=== PATIENT | female | born 1930 | race Caucasian/White ===

== ENCOUNTER 2017-03-22 07:26 | Inpatient (IN) | payer BC ==
[~2017-03-22] VITALS: Ht 149.9 cm; Wt 64.7 kg
[2017-03-22] VITALS (64 sets, daily range): BP systolic 85–144; BP diastolic 36–66; PULSE 76–117; RESP 11–24; Ht 149.9 cm; Wt 64.7 kg
[~2017-03-22 07:26] MED LIST: HETASTARCH 6% NACL 500 ML BAG ONE
--- NOTE | 2017-03-22 07:55 | HP ---
Date/Time of Note Date/Time of Note DATE: 03/22/17 TIME: 07:55 Assessment/Plan VTE Prophylaxis VTE Prophylaxis Intervention: SCD's HPI/ROS Admit Date/Time Admit Date/Time Mar 22, 2017 at 07:26 ROS Satish Winston M.D. 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 The mass is complex and solid per Ct scan, 8 cm bilateral adnexal with lymphadenopathy. Elevated Ca 125 of 269 . She also has prolonged PMB. Medical history/ROS: Thyroid d/o, Arthritis. G 2 P 2 Ab 0 Surgical history: cholecystectomy,cataract surgery . Date of last mammogram 2012 ; Last Pap Smear: 12/2016 , Last Dexa 2012 Medications: 02/03/17 Calcium 500 500 mg calcium (1,250 mg) tablet 1 tablet by mouth DAILY 02/03/17 furosemide 20 mg tablet 1 tablet by mouth DAILY 02/03/17 levothyroxine 137 mcg tablet 1 tablet by mouth DAILY 02/03/17 PreserVision Lutein 226 mg-200 unit-5 mg-0.8 mg capsule 2 capsule by mouth DAILY 02/03/17 simvastatin 10 mg tablet 1 tablet by mouth DAILY Allergies: 02/02/17 Codeine Family Hx: non-contributary Social HX: non-contributary ROS: as above Physical Examination General: Alert. HEENT: Pupils are equal, round, reactive to light and accommodation. Neck: Supple with no masses of lymphadenopathy. Breast: Deferred due to recent examination and responsibility of primary care physician. Chest: Clear to auscultation Heart: Normal rhythm with no murmur. Abdomen: Non tender, no ascites nor organomeglay. Pelvic exam: Cx, NT with no mass but uterus enlgd and suggestion of masses and cul-de-sac nodularity noted Rectal: confirmatory with pelvic exam. Neurological: Grossly intact Assessment: Pelvic mass Plan: DANN/ BSO, possible UDx2 possible cytoreduction, possible bowel resection. All risks and benefits of this procedure have been discussed in detail with the patient, as well as alternative treatment strategies and their implications. The patient is aware that there is some possibility of a blood transfusion and its associated risks and benefits. She wishes to proceed and gives her informed consent. Satish Winston M.D. Exam/Review of Systems Medications Medications Current Medications Potassium Chloride/Dextrose/ Sod Cl 1,000 ml @ 100 mls/hr Q10H IV ; Start 03/22 at 08:00; Stop 03/22/17 at 17:59 Metronidazole 100 ml @ 100 mls/hr PREOP IVPB ; Start 03/22/17 at 08:00; Stop at 16:00 Cefazolin Sodium/ Dextrose (Ancef 2 Gm/50 ml (Pmx)) 50 ml @ 100 mls/hr PREOP IVPB ; Start 03/22/17 at 08:00; Stop 03/22/17 at 16:00 SATISH WINSTON MD Mar 22, 2017 07:55
--- NOTE | 2017-03-22 07:56 | HPN ---
Date/Time of Note Date/Time of Note DATE: 03/22/17 TIME: 07:56 Interval H&P Admission Note Pt. seen H&P reviewed: No system changes DEVORAH WINSTON MD Mar 22, 2017 07:56
[2017-03-22] MEDS ORDERED: D5-NS + KCL 20 MEQ 1,000 ML IV SCH (08:00)
[2017-03-22] MEDS ORDERED: Metronidazole 500 MG in NS 100 ML IVPB SCH (08:00)
[2017-03-22] MEDS ORDERED: CEFAZOLIN 2 GM/50 ML (PMX) 50 ML IVPB SCH (08:00)
[2017-03-22] MEDS ORDERED: FURO-110 PO (08:13)
[2017-03-22] MEDS ORDERED: LEVO137T26 PO (08:13)
[2017-03-22] MEDS ORDERED: SIMV10TA PO (08:13)
[2017-03-22] MEDS ORDERED: VIT1CAPS42 PO (08:14)
[2017-03-22] MEDS ORDERED: CHOL100062 PO (08:14)
[2017-03-22] MEDS ORDERED: CALC600T11 PO (08:15)
[2017-03-22] MEDS ORDERED: VASOPRESSIN 20 UNITS INJ ONE (08:21)
[2017-03-22] MEDS ORDERED: METHYLENE BLUE 1% 10 ML INJ ONE (08:31)
[2017-03-22] MEDS ORDERED: THROMBIN 5000 UNIT VIAL ONE (09:22)
[2017-03-22] MEDS ORDERED: ROCURONIUM 50 MG INJ ONE (09:31)
[2017-03-22] MEDS ORDERED: PROPOFOL 100 ML ONE (09:31)
[2017-03-22] MEDS ORDERED: PHENYLephrine (100 MCG/ML) 5ML SYG ONE ×2 (10:33→12:30)
[2017-03-22] MEDS ORDERED: ONDANSETRON 4 MG INJ ONE (11:51)
[2017-03-22] MEDS ORDERED: CEFAZOLIN 1 GM INJ ONE ×2 (11:51→13:02)
[2017-03-22] MEDS ORDERED: DEXAMETHASONE 4 MG/ML 1 ML INJ ONE (11:51)
[2017-03-22] MEDS ORDERED: METOCLOPRAMIDE 10 MG INJ ONE (11:51)
[2017-03-22] MEDS ORDERED: metroNIDAZOLE 500 MG/NS (PMX) 100 ML IVPB ONE (11:51)
[2017-03-22] MEDS ORDERED: ACETAMINOPHEN 1000MG/100ML IV 100 ML ONE (11:51)
[2017-03-22] MEDS ORDERED: FAMOTIDINE 20 MG INJ ONE (11:51)
[2017-03-22] MEDS ORDERED: MEPERIDINE 25 MG INJ IV PRN (12:00)
[2017-03-22] MEDS ORDERED: hydrALAzine 20 MG INJ IV PRN (12:00)
[2017-03-22] MEDS ORDERED: ONDANSETRON 4 MG INJ IV PRN ×2 (12:00→14:00)
[2017-03-22] MEDS ORDERED: EPHEDrine SULFATE 50 MG/5 ML SYG IV PRN (12:00)
[2017-03-22] MEDS ORDERED: HYDROmorphONE (0.2 MG/ML) 10ML SYG IV PRN ×2 (12:00)
[2017-03-22] MEDS ORDERED: ALBUMIN HUMAN 5% 250 ML IV PRN (12:00)
[2017-03-22] MEDS ORDERED: LABETALOL HCL 20MG INJ IV PRN (12:00)
[2017-03-22] MEDS ORDERED: FENTAnyl 50 MCG/ML VIAL IV PRN ×2 (12:00)
[2017-03-22] MEDS ORDERED: DIPHENHYDRAMINE 50 MG INJ IV PRN (12:00)
[2017-03-22] MEDS ORDERED: morphine (1 MG/ML) 10ML SYRINGE IV PRN ×3 (12:00)
[2017-03-22 12:29] LABS: AADO2 Arterial 284.8 mmHg (7.0-24.0); Allen Test ACCEPTAB; Arterial Base Excess -3.6 mmol/L (-3.0-3); Arterial COHb 0.3 % (0.0-3.0); Arterial Fraction of Oxyhgb 98.5 % (93.0-99.0); Arterial HCO3 21.8 mmol/L (22.0-26.0); Arterial MetHb 0.4 % (0.0-1.5); Arterial Total Hemglobin 9.7 g/dl (12.0-18.0); MODE SURGERY
[2017-03-22] MEDS ORDERED: NEOSTIGMINE 3 MG/3 ML SYRINGE ONE (13:15)
[2017-03-22] MEDS ORDERED: GLYCOPYRROLATE 0.4 MG INJ ONE (13:15)
[2017-03-22] MEDS: HYDROmorphONE (0.2 MG/ML) 10ML SYG IV PRN ×2 (13:55→15:33)
[2017-03-22] MEDS ORDERED: metroNIDAZOLE 500 MG/NS (PMX) 100 ML IVPB SCH (14:00)
[2017-03-22] MEDS ORDERED: CEFAZOLIN 3 GM in SOD CHLORIDE 0.9% 100 ML IVPB SCH (14:00)
[2017-03-22 14:25] LABS: ADD SCAN DIFF NO
[2017-03-22 14:26] LABS: BASOPHILS % 0.2 % (0.0-2.0); EOSINOPHILS % 0.4 % (0.0-7.0); HEMATOCRIT 28.9 % (37.0-47.0); HEMOGLOBIN 9.2 g/dl (12.0-16.0); LYMPHOCYTES % 18.1 % (15.0-51.0); MEAN CORPUSCULAR HEMOGLOBIN 29.1 pg (29.0-33.0); MEAN CORPUSCULAR HGB CONC 31.8 g/dl (32.0-37.0); MEAN CORPUSCULAR VOLUME 91.5 fl (82.0-101.0); MEAN PLATELET VOLUME 9.1 fl (7.4-10.4); MONOCYTE # 0.2 10^3/ul (0.3-0.9); MONOCYTES % 3.8 % (0.0-11.0); NEUTROPHIL # 4.1 10^3/ul (1.6-7.5); NEUTROPHILS % 77.1 % (39.0-77.0); PLATELET COUNT 183 10^3/UL (140-415); RED BLOOD COUNT 3.16 10^6/ul (4.20-5.40); RED CELL DISTRIBUTION WIDTH 14.4 % (11.5-14.5); WHITE BLOOD COUNT 5.3 10^3/ul (4.8-10.8)
[2017-03-22 14:42] LABS: ALBUMIN 1.6 g/dl (3.3-4.9); ALBUMIN/GLOBULIN RATIO 0.61; BILIRUBIN,INDIRECT 0.4 mg/dl (0-1.1); BILIRUBIN,TOTAL 0.4 mg/dl (0.2-1.3); TOTAL PROTEIN 4.2 g/dl (6.1-8.1)
[2017-03-22 15:01] LABS: CALCIUM 6.9 mg/dl (8.4-10.2); CREATININE 0.84 mg/dl (0.44-1.00); POTASSIUM 3.7 mmol/L (3.5-5.1)
--- NOTE | 2017-03-22 15:05 | RADRPT ---
PROCEDURE: XR Chest. CLINICAL INDICATION: post op TECHNIQUE: Single frontal view of the chest was obtained. COMPARISON: None. FINDINGS: The tip of an enteric tube is noted in the stomach. A right internal jugular central venous catheter is noted with its tip in the mid SVC. The heart and mediastinum are within normal limits. The aortic arch is calcified. There is mild prominence of interstitial markings, likely due to chronic and / or senescent changes. There are small bilateral pleural effusions. There is decreased osseous mineralization. IMPRESSION: Small bilateral pleural effusions without definite focal infiltrates. Enteric tube in the stomach. Right IJ central venous line with its tip in the mid SVC. Aortic atherosclerosis. Decreased osseous mineralization. RPTAT: EE Physician Olivia Date Time Electronically viewed and signed by Chase Toney Physician on 03/22/2017 15:05 /
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
[2017-03-22] MEDS: D5-NS + KCL 20 MEQ 1,000 ML IV SCH ×2 (16:10→23:50)
[2017-03-22] MEDS: CEFAZOLIN 1 GM/50 ML (PMX) 50 ML IVPB SCH (20:02)
[2017-03-22] MEDS: metroNIDAZOLE 500 MG/NS (PMX) 100 ML IVPB SCH (20:03)
[2017-03-22] MEDS: HYDROmorphONE 1 MG/ML SYG IV PRN (20:25)
[2017-03-22 23:04] LABS: ADD SCAN DIFF NO
[2017-03-22 23:05] LABS: ABNORMAL IP MESSAGE 1; HEMATOCRIT 24.4 % (37.0-47.0); HEMOGLOBIN 8.1 g/dl (12.0-16.0); MEAN CORPUSCULAR HGB CONC 33.2 g/dl (32.0-37.0); MEAN CORPUSCULAR VOLUME 90.4 fl (82.0-101.0); MEAN PLATELET VOLUME 9.5 fl (7.4-10.4); PLATELET COUNT 178 10^3/UL (140-415); RED CELL DISTRIBUTION WIDTH 14.9 % (11.5-14.5); WHITE BLOOD COUNT 9.4 10^3/ul (4.8-10.8)
[2017-03-22 23:17] LABS: INR 1.3; PROTIME 16.3 Sec (12.2-14.2); PT RATIO 1.3
[2017-03-22] MEDS: FAMOTIDINE 20 MG INJ IV SCH (23:50)
[2017-03-22] MEDS: ALBUMIN HUMAN 5% 250 ML IV SCH (23:50)
[2017-03-22] MEDS: POTASSIUM CHLORIDE 20 MEQ in DEXTROSE 5%-0.9% NACL 990 ML IV SCH (23:50)
[2017-03-23] VITALS (43 sets, daily range): BP systolic 86–136; BP diastolic 33–72; PULSE 83–121; RESP 11–22
[2017-03-23] MEDS ORDERED: DIPHENHYDRAMINE 50 MG INJ IV ONE (00:30)
[2017-03-23] MEDS ORDERED: ACETAMINOPHEN 650MG/20.3ML CUP NGT ONE (00:30)
[2017-03-23] MEDS: ALBUMIN HUMAN 5% 250 ML IV SCH (01:11)
[2017-03-23] MEDS: HYDROmorphONE 1 MG/ML SYG IV PRN ×3 (01:14→17:21)
[2017-03-23 02:07] LABS: LYMPHOCYTES # 0.4 10^3/ul (0.8-2.9); MONOCYTE # 0.5 10^3/ul (0.3-0.9); NEUTROPHIL # 8.6 10^3/ul (1.6-7.5); PLATELET ESTIMATE PLT APPEAR ADEQUATE
[2017-03-23] MEDS: D5-NS + KCL 20 MEQ 1,000 ML IV SCH ×3 (03:17→15:45)
[2017-03-23] MEDS: CEFAZOLIN 1 GM/50 ML (PMX) 50 ML IVPB SCH ×2 (04:30→12:16)
[2017-03-23] MEDS: metroNIDAZOLE 500 MG/NS (PMX) 100 ML IVPB SCH ×2 (05:23→12:16)
[2017-03-23] MEDS: LEVOTHYROXINE 100 MCG VIAL IV SCH (05:24)
[2017-03-23 06:06] LABS: ADD SCAN DIFF NO
[2017-03-23] MEDS: POTASSIUM CHLORIDE 20 MEQ in DEXTROSE 5%-0.9% NACL 990 ML IV SCH ×2 (06:10→12:16)
[2017-03-23 06:21] LABS: HEMATOCRIT 24.1 % (37.0-47.0); HEMOGLOBIN 7.6 g/dl (12.0-16.0); LYMPHOCYTES # 0.6 10^3/ul (0.8-2.9); LYMPHOCYTES % 9.6 % (15.0-51.0); MEAN CORPUSCULAR HEMOGLOBIN 29.2 pg (29.0-33.0); MEAN CORPUSCULAR HGB CONC 31.5 g/dl (32.0-37.0); MEAN CORPUSCULAR VOLUME 92.7 fl (82.0-101.0); MEAN PLATELET VOLUME 9.6 fl (7.4-10.4); MONOCYTE # 0.5 10^3/ul (0.3-0.9); MONOCYTES % 7.7 % (0.0-11.0); NEUTROPHIL # 5.5 10^3/ul (1.6-7.5); NEUTROPHILS % 82.4 % (39.0-77.0); PLATELET COUNT 134 10^3/UL (140-415); RED CELL DISTRIBUTION WIDTH 14.9 % (11.5-14.5); WHITE BLOOD COUNT 6.6 10^3/ul (4.8-10.8)
[2017-03-23 06:24] LABS: POTASSIUM 3.9 mmol/L (3.5-5.1)
[2017-03-23 06:26] LABS: ALBUMIN/GLOBULIN RATIO 0.76; CREATININE 0.93 mg/dl (0.44-1.00); TOTAL PROTEIN 4.6 g/dl (6.1-8.1)
[2017-03-23 06:31] LABS: INR 5.25; PROTIME 49.2 Sec (12.2-14.2); PT RATIO 3.8
[2017-03-23] MEDS: FAMOTIDINE 20 MG INJ IV SCH ×2 (08:29→22:04)
--- NOTE | 2017-03-23 12:39 | PN ---
Date/Time of Note Date/Time of Note DATE: 03/23/17 TIME: 12:36 Assessment/Plan VTE Prophylaxis VTE Prophylaxis Intervention: SCD's Lines/Catheters IV Catheter Type (from Nrsg): Central Line Central line still needed: Yes Urinary Cath still in place: Yes Reason Cath still needed: urinary retention Assessment/Plan Chief Complaint/Hosp Course adenoca Problems: Assessment/Plan A- doing well other than possible coagulopath P- FFP and blood and repeat labs Subjective 24 Hr Interval Summary Free Text/Dictation Arousable and responsive. Pain controled Exam/Review of Systems Vital Signs Vitals Vital Signs Date Time Temp Pulse Resp B/P Pulse Ox O2 Delivery O2 Flow Rate FiO2 03/23/17 10:00 89 15 100/45 98 Nasal Cannula 2.0 03/23/17 08:00 98.2 Intake and Output 03/22/17 03/22/17 03/23/17 15:00 23:00 07:00 Intake Total 3600 ml 300 ml 1800 ml Output Total 1240 ml 350 ml 260 ml Balance 2360 ml -50 ml 1540 ml Exam Respiratory: normal air movement Cardiovascular: nl pulses, regular rate and rhythm Gastrointestinal: non-tender Extremities: normal pulses Results Result Diagram: 03/23/17 0550 03/23/17 0550 Results 24 hrs Laboratory Tests Test 03/22/17 14:20 03/22/17 22:58 03/23/17 05:50 White Blood Count 5.3 9.4 # 6.6 # Red Blood Count 3.16 L 2.70 L 2.60 L Hemoglobin 9.2 L 8.1 L 7.6 L Hematocrit 28.9 L 24.4 L 24.1 L Mean Corpuscular Volume 91.5 90.4 92.7 Mean Corpuscular Hemoglobin 29.1 30.0 29.2 Mean Corpuscular Hemoglobin Concent 31.8 L 33.2 31.5 L Red Cell Distribution Width 14.4 14.9 H 14.9 H Platelet Count 183 178 134 #L Mean Platelet Volume 9.1 9.5 9.6 Neutrophils % 77.1 H 91.0 H 82.4 H Lymphocytes % 18.1 4.0 L 9.6 L Monocytes % 3.8 5.0 7.7 Eosinophils % 0.4 0.0 Basophils % 0.2 0.0 Nucleated Red Blood Cells % 0.0 0.0 Neutrophils # 4.1 8.6 H 5.5 Lymphocytes # 1.0 0.4 L 0.6 L Monocytes # 0.2 L 0.5 0.5 Eosinophils # 0.0 0.0 Basophils # 0.0 0.0 Nucleated Red Blood Cells # 0.0 0.0 Sodium Level 137 145 H Potassium Level 3.7 3.9 Chloride Level 115 H 115 H Carbon Dioxide Level 20 L 22 Anion Gap 6 L 12 Blood Urea Nitrogen 12 12 Creatinine 0.84 0.93 Glucose Level 167 180 Calcium Level 6.9 L 7.0 L Total Bilirubin 0.4 1.0 Direct Bilirubin 0.00 0.00 Indirect Bilirubin 0.4 1.0 Aspartate Amino Transf (AST/SGOT) 18 15 Alanine Aminotransferase (ALT/SGPT) 23 18 Alkaline Phosphatase 76 54 Total Protein 4.2 L 4.6 L Albumin 1.6 L 2.0 L Globulin 2.60 2.60 Albumin/Globulin Ratio 0.61 0.76 Platelet Estimate PLT APPEAR ADEQUATE Prothrombin Time 16.3 H 49.2 #H Prothrombin Time Ratio 1.3 3.8 INR International Normalized Ratio 1.30 5.25 Medications Medications Current Medications Hydromorphone HCl (Dilaudid) 0.5 mg Q1HWA PRN IV PAIN LEVEL 6-10 Last administered on 03/23/17 09:55; Admin Dose 0.5 MG; Start 03/22/17 at 14:00 Ondansetron HCl (Zofran Inj) 4 mg Q6H PRN IV NAUSEA AND/OR VOMITING; Start at 14:00 Famotidine 20 mg 20 mg Q12 IV Last administered on 03/23/17 08:29; Admin Dose 20 MG; Start 03/22/17 at 21:00 Potassium Chloride/Dextrose/ Sod Cl 1,000 ml @ 150 mls/hr Q6H40M IV Last administered on 03/23/17 08:29; Admin Dose 150 MLS/HR; Start 03/22/17 at 13:57 Cefazolin Sodium 50 ml @ 100 mls/hr Q8H IVPB Last administered on 03/23/17 12 :16; Admin Dose 100 MLS/HR; Start 03/22/17 at 20:30; Stop 03/23/17 at 12:59 Metronidazole (Flagyl 500 Mg (Pmx)) 100 ml @ 100 mls/hr Q8H IVPB Last administered on 03/23/17 12:16; Admin Dose 100 MLS/HR; Start 03/22/17 at 20:00 ; Stop 03/23/17 at 12:59 Levothyroxine Sodium 75 mcg 75 mcg DAILY@06 IV Last administered on 03/23/17 05:24; Admin Dose 75 MCG; Start 03/23/17 at 06:00 Potassium Chloride/Dextrose/ Sodium Chloride (KCl/D5-NS) 1,000 ml @ 150 mls/hr Q6H40M IV Last administered on 03/23/17 12:16; Admin Dose 150 MLS/HR; Start at 23:30 DEVORAH WINSTON MD Mar 23, 2017 12:39
--- NOTE | 2017-03-23 14:23 | PN ---
Date/Time of Note Date/Time of Note DATE: 03/23/17 TIME: 14:15 Assessment/Plan VTE Prophylaxis VTE Prophylaxis Intervention: SCD's Lines/Catheters IV Catheter Type (from Nrs): Central Line Central line still needed: Yes Urinary Cath still in place: Yes Reason Cath still needed: urinary retention Assessment/Plan Assessment/Plan - Pelvic mass with local lymphadenopathy status post total abdominal hysterectomy and bilateral salpingo-oophorectomy and removal of retroperitoneal lymph nodes which were positive for adenocarcinoma of unknown source. Continue ICU care, surgical recommendations. - Coagulopathy, pending FFP transfusion - Anemia of blood loss, pending packed red blood cells transfusion - Hypertension. Patient is currently normotensive. - Dyslipidemia. Further recommendations based on clinical course. Plan of care discussed with Dr. Mari. Subjective 24 Hr Interval Summary Free Text/Dictation Patient is awake alert, postoperative pain is well controlled, good urine output via Pastrana catheter, left lower quadrant JOSSELYN with serosanguineous drainage. Exam/Review of Systems Vital Signs Vitals Vital Signs Date Time Temp Pulse Resp B/P Pulse Ox O2 Delivery O2 Flow Rate FiO2 03/23/17 12:00 86 03/23/17 10:00 15 100/45 98 Nasal Cannula 2.0 03/23/17 08:00 98.2 Intake and Output 03/22/17 03/22/17 03/23/17 15:00 23:00 07:00 Intake Total 3600 ml 300 ml 1800 ml Output Total 1240 ml 350 ml 260 ml Balance 2360 ml -50 ml 1540 ml Exam Constitutional: alert, oriented Psych: no complaints Head: atraumatic, normocephalic Eyes: nl conjunctiva ENMT: nl external ears & nose Neck: non-tender, supple Respiratory: clear to auscultation, normal air movement Cardiovascular: nl pulses, regular rate and rhythm Gastrointestinal: other (Hypoactive bowel sounds, generalized tenderness, status post surgery, left lower quadrant JOSSELYN), soft Musculoskeletal: nl extremities to inspection Extremities: normal pulses Neurological: BUTT WELDER II-XII intact Skin: nl turgor Lymph: nl lymph nodes Results Result Diagram: 03/23/17 0550 03/23/17 0550 Results 24 hrs Laboratory Tests Test 03/22/17 14:20 03/22/17 22:58 03/23/17 05:50 White Blood Count 5.3 9.4 # 6.6 # Red Blood Count 3.16 L 2.70 L 2.60 L Hemoglobin 9.2 L 8.1 L 7.6 L Hematocrit 28.9 L 24.4 L 24.1 L Mean Corpuscular Volume 91.5 90.4 92.7 Mean Corpuscular Hemoglobin 29.1 30.0 29.2 Mean Corpuscular Hemoglobin Concent 31.8 L 33.2 31.5 L Red Cell Distribution Width 14.4 14.9 H 14.9 H Platelet Count 183 178 134 #L Mean Platelet Volume 9.1 9.5 9.6 Neutrophils % 77.1 H 91.0 H 82.4 H Lymphocytes % 18.1 4.0 L 9.6 L Monocytes % 3.8 5.0 7.7 Eosinophils % 0.4 0.0 Basophils % 0.2 0.0 Nucleated Red Blood Cells % 0.0 0.0 Neutrophils # 4.1 8.6 H 5.5 Lymphocytes # 1.0 0.4 L 0.6 L Monocytes # 0.2 L 0.5 0.5 Eosinophils # 0.0 0.0 Basophils # 0.0 0.0 Nucleated Red Blood Cells # 0.0 0.0 Sodium Level 137 145 H Potassium Level 3.7 3.9 Chloride Level 115 H 115 H Carbon Dioxide Level 20 L 22 Anion Gap 6 L 12 Blood Urea Nitrogen 12 12 Creatinine 0.84 0.93 Glucose Level 167 180 Calcium Level 6.9 L 7.0 L Total Bilirubin 0.4 1.0 Direct Bilirubin 0.00 0.00 Indirect Bilirubin 0.4 1.0 Aspartate Amino Transf (AST/SGOT) 18 15 Alanine Aminotransferase (ALT/SGPT) 23 18 Alkaline Phosphatase 76 54 Total Protein 4.2 L 4.6 L Albumin 1.6 L 2.0 L Globulin 2.60 2.60 Albumin/Globulin Ratio 0.61 0.76 Platelet Estimate PLT APPEAR ADEQUATE Prothrombin Time 16.3 H 49.2 #H Prothrombin Time Ratio 1.3 3.8 INR International Normalized Ratio 1.30 5.25 Medications Medications Current Medications Hydromorphone HCl (Dilaudid) 0.5 mg Q1HWA PRN IV PAIN LEVEL 6-10 Last administered on 03/23/17t 09:55; Admin Dose 0.5 MG; Start 03/22/17 at 14:00 Ondansetron HCl (Zofran Inj) 4 mg Q6H PRN IV NAUSEA AND/OR VOMITING; Start at 14:00 Famotidine 20 mg 20 mg Q12 IV Last administered on 03/23/17 08:29; Admin Dose 20 MG; Start 03/22/17 at 21:00 Potassium Chloride/Dextrose/ Sod Cl (D5-NS + KCl 20 Meq) 1,000 ml @ 150 mls/hr Q6H40M IV Last administered on 03/23/17 08:29; Admin Dose 150 MLS/HR; Start at 13:57 Levothyroxine Sodium 75 mcg 75 mcg DAILY@06 IV Last administered on 03/23/17 05:24; Admin Dose 75 MCG; Start 03/23/17 at 06:00 Potassium Chloride/Dextrose/ Sodium Chloride (KCl/D5-NS) 1,000 ml @ 150 mls/hr Q6H40M IV Last administered on 03/23/17 12:16; Admin Dose 150 MLS/HR; Start at 23:30 LESLIE HELLER Mar 23, 2017 14:23
--- NOTE | 2017-03-23 22:03 | OPR ---
Date/Time of Note Date/Time of Note DATE: 03/23/17 TIME: 22:02 Operative Report Free Text/Dictation OPERATIVE REPORT [facility] Name: Oumou Ferreira Medical Date: 03/22/15 Preoperative Diagnosis: Pelvic mass; probable endometrial cancer Postoperative Diagnosis: 1- Adenocarcinoma - pathology pending 2- Bilateral ureteral distortion Procedures: 1- Extended total abdominal hysterectomy with bilateral salpingoophorectomy 2- Pelvic and aortic LND - cytoreduction 3- Bilateral ureteral dissection with repositioning Surgeon: Dr. Winston Culinary Specialist: Dr. Finn Indications for Surgery The patient was an 87- year old with persistent post menopausal bleeding and pain with lymphadenopathy on CT-scan and underwent laparotomy to manage the probable uterine cancer due to the extent of metastatic disease after considering all options with risks and benefits. Findings and Summary After opening with exploration a 12-14 week sized uterus with hypervascularity was noted and the retroperitoneum was opened and both ureters were dissected and repositioned laterally, permitting the uterine arteries to be accessed. The DANN/BSO was completed and on frozen section no obvious endometrial cancer was noted. However, most or all of the pelvic and aortic lymph node dissection was completed and was grossly positive and adenocarcinoma on frozen section Name: Oumou Ferreira Medical without a palpable site in the abdomen . Procedure: After being prepped and draped in the usual manner a midline skin incision was made of appropriate length. The electrocautery was then used to dissect thru the adipose tissue to the level of the fascia. The fascia was incised sharply and the peritoneum identified. At this time the peritoneum was elevated and incised with a Metzenbaum scissors. Upon entering the peritoneal cavity we inspected the abdominal and pelvic contents and found the uterus was enlarged to 14- week size with globular hypervascularity distorting the retroperitoneal anatomy. We further explored and there was no intraperitoneal disease or other organ disease, although retroperitoneal nodes were grossly positive. Initially the right round ligament was cauterized and transected with a Ligasure bipolar cutting forceps uneventfully. The bladder flap was then developed with a Bovie and blunt dissection. The retroperitoneum was opened and the ureter was identified. Due to very extensive anatomical displacement and some element of ureteral distortion it was essential do thoroughly dissect and reposition the ureter, as it was impossible to simply address the IP and place a clamp adjacent to the cervix and lower uterine segment. The ureter was therefore thoroughly dissected away from the broad ligaments and expanded lower uterine segment with a right angle clamp and peanut as needed throughout the length. The right IP was then isolated and cauterized and transected with the Ligasure and free-tied as well. Subsequently the left round ligament was transected with a Ligasure uneventfully. The bladder flap was then further developed with a Bovie and blunt dissection. The retroperitoneum was opened and the ureter was identified. Due to very extensive anatomical displacement and some element of ureteral distortion is was essential to thoroughly dissect and reposition the ureter, as it was impossible to simply address the IP and place a clamp adjacent to the cervix and lower uterine segment. The ureter was therefore thoroughly dissected away Name: Oumou Ferreira [facility] from the broad ligaments and expanded lower uterine segment with a right angle clamp and peanut as needed throughout the length. The left IP was then isolated and cauterized and transected with the Ligasure and free-tied as well. After confirming hemostasis, the uterine arteries were clamped, cut and ligated with 0-Vicryl bilaterally. At this time the cardinal ligament was clamped and appropriate distance from the cervix with the ureters visualized. The ligaments were then cut bilaterally and sutured with 0-Vicryl. An identical procedure was used to transect the uterosacral ligaments an appropriate distance from the cervix. The base of the bladder and bladder pillars were then further mobilized, after which the ureters were confirmed to be undamaged. The uterus was from the vagina and the vagina closed with figure of eight sutures using 0-vicryl. After confirming hemostasis we addressed the lymph node dissection since we had excellent exposure. Initially all bulky grossly positive lymph node tissue adjacent to the right external iliac artery and vein, hypogastric artery and vein, as well as obturator fossa were removed with sharp and blunt dissection, using the Gyrus bipolar cutting forceps for hemostasis and lymphostasis. The dissection was continued to include ranjana tissue adjacent to the common iliac vessels. The retractors were adjusted and any enlarged and involved ranjana tissue adjacent to the vena cava, as well as aorto-caval nodes were removed using identical technique. At this time we adjusted the retractors and all grossly positive lymph node tissue adjacent to the left external iliac artery and vein, hypogastric artery and vein , as well as obturator fossa were removed with sharp and blunt dissection, using the Gyrus bipolar cutting forceps for hemostasis and lymphostasis. Of note , the nodes were massive and at the start of the operation densely adherent to the sidewall and uterus, possible suggestive of an adnexal mass on CT. The dissection was continued to include grossly positive ranjana tissue adjacent to the common iliac vessels. Subsequently, the retractors were adjusted and any enalrged ranjana tissue adjacent to the aorta were dissected using sharp and blunt dissection with the Gyrus bipolar cutting Name: Oumou Ferreira [facility] forceps for hemostasis and lymphostasis. At this time, after all packing was removed, the abdomen thoroughly irrigated, hemostasis confirmed, and a Roberto drain placed. A figure of eight suture was placed at the caudal apex of the incision with 1-vicryl suture and used for exposure by elevating with a Pean clamp. A continuous 1- Vicryl suture was used from the rostral apex and run to the supra-pubic area. The final suture was tied appropriately, after which the figure of eight was tied. The subcutaneous tissue was irrigated and the skin was closed with skin clips. The sponge, needle, and instrument were correct two times. The estimated blood loss was 800 cc. The patient tolerated the procedure well and left the OR in good condition. Devorah Winston M.D. DEVORAH WINSTON MD Mar 23, 2017 22:03
[2017-03-24] VITALS (12 sets, daily range): BP systolic 131–156; BP diastolic 60–78; PULSE 90–115; RESP 16–22
[2017-03-24] MEDS: HYDROmorphONE 1 MG/ML SYG IV PRN ×4 (00:59→18:55)
[2017-03-24] MEDS: D5-NS + KCL 20 MEQ 1,000 ML IV SCH ×4 (07:34→21:14)
[2017-03-24] MEDS: FAMOTIDINE 20 MG INJ IV SCH ×2 (09:27→21:14)
[2017-03-24] MEDS: LEVOTHYROXINE 100 MCG VIAL IV SCH (09:28)
[2017-03-24 10:40] LABS: ADD SCAN DIFF NO
[2017-03-24 10:51] LABS: BASOPHILS % 0.1 % (0.0-2.0); EOSINOPHILS % 0.6 % (0.0-7.0); HEMATOCRIT 28.4 % (37.0-47.0); HEMOGLOBIN 9.4 g/dl (12.0-16.0); LYMPHOCYTES % 13.3 % (15.0-51.0); MEAN CORPUSCULAR HEMOGLOBIN 29.9 pg (29.0-33.0); MEAN CORPUSCULAR HGB CONC 33.1 g/dl (32.0-37.0); MEAN CORPUSCULAR VOLUME 90.4 fl (82.0-101.0); MEAN PLATELET VOLUME 9.2 fl (7.4-10.4); MONOCYTE # 0.4 10^3/ul (0.3-0.9); MONOCYTES % 5.6 % (0.0-11.0); NEUTROPHIL # 5.7 10^3/ul (1.6-7.5); NEUTROPHILS % 79.8 % (39.0-77.0); PLATELET COUNT 120 10^3/UL (140-415); RED BLOOD COUNT 3.14 10^6/ul (4.20-5.40); RED CELL DISTRIBUTION WIDTH 16.4 % (11.5-14.5); WHITE BLOOD COUNT 7.1 10^3/ul (4.8-10.8)
[2017-03-24 11:00] LABS: POTASSIUM 3.6 mmol/L (3.5-5.1)
[2017-03-24 11:02] LABS: CREATININE 0.86 mg/dl (0.44-1.00)
[2017-03-24 11:03] LABS: CALCIUM 7.6 mg/dl (8.4-10.2)
--- NOTE | 2017-03-24 14:32 | PN ---
Date/Time of Note Date/Time of Note DATE: 03/24/17 TIME: 14:29 Assessment/Plan VTE Prophylaxis VTE Prophylaxis Intervention: SCD's Lines/Catheters IV Catheter Type (from Nrs): Central Line Central line still needed: Yes Urinary Cath still in place: Yes Reason Cath still needed: urinary retention Assessment/Plan Assessment/Plan - Pelvic mass with local lymphadenopathy - status post total abdominal hysterectomy and bilateral salpingo- oophorectomy and removal of retroperitoneal lymph nodes - positive for adenocarcinoma of unknown source. - per surgical recommendations. - Coagulopathy, sp FFP transfusion - Anemia of blood loss, sp packed red blood cells transfusion - Hypertension. Patient is currently normotensive. - Dyslipidemia. Further recommendations based on clinical course. Plan of care discussed with Dr. Mari. Subjective 24 Hr Interval Summary Free Text/Dictation nad, resting, seems comfortable, son at bed side- all QS answered. dw staff Constitutional: requiring IVF, requiring O2 Respiratory: no complaints Cardiovascular: no complaints Gastrointestinal: no complaints Exam/Review of Systems Vital Signs Vitals Vital Signs Date Time Temp Pulse Resp B/P Pulse Ox O2 Delivery O2 Flow Rate FiO2 03/24/17 12:07 98.0 90 18 135/64 98 03/23/17 22:00 Nasal Cannula 3.0 Intake and Output 03/23/17 03/23/17 03/24/17 15:00 23:00 07:00 Intake Total 1207 ml 833 ml 460 ml Output Total 430 ml 235 ml 685 ml Balance 777 ml 598 ml -225 ml Exam Constitutional: alert, well developed Psych: nl mood/affect Eyes: nl sclera ENMT: nl external ears & nose Neck: non-tender Respiratory: clear to auscultation Cardiovascular: nl pulses Gastrointestinal: soft, tender (post surgery coy, DDI) Genitourinary - Female: other (sp abdominal BSO) Musculoskeletal: nl extremities to inspection Extremities: normal pulses Neurological: other Lymph: nontender Results Result Diagram: 03/24/17 1035 03/24/17 1035 Results 24 hrs Laboratory Tests Test 03/24/17 10:35 White Blood Count 7.1 Red Blood Count 3.14 #L Hemoglobin 9.4 #L Hematocrit 28.4 L Mean Corpuscular Volume 90.4 Mean Corpuscular Hemoglobin 29.9 Mean Corpuscular Hemoglobin Concent 33.1 Red Cell Distribution Width 16.4 H Platelet Count 120 L Mean Platelet Volume 9.2 Neutrophils % 79.8 H Lymphocytes % 13.3 L Monocytes % 5.6 Eosinophils % 0.6 Basophils % 0.1 Nucleated Red Blood Cells % 0.0 Neutrophils # 5.7 Lymphocytes # 1.0 Monocytes # 0.4 Eosinophils # 0.0 Basophils # 0.0 Nucleated Red Blood Cells # 0.0 Sodium Level 143 Potassium Level 3.6 Chloride Level 113 H Carbon Dioxide Level 24 Anion Gap 10 Blood Urea Nitrogen 8 Creatinine 0.86 Glucose Level 132 # Calcium Level 7.6 L Medications Medications Current Medications Hydromorphone HCl (Dilaudid) 0.5 mg Q1HWA PRN IV PAIN LEVEL 6-10 Last administered on 03/24/17 09:27; Admin Dose 0.5 MG; Start 03/22/17 at 14:00 Ondansetron HCl (Zofran Inj) 4 mg Q6H PRN IV NAUSEA AND/OR VOMITING; Start at 14:00 Famotidine 20 mg 20 mg Q12 IV Last administered on 03/24/17 09:27; Admin Dose 20 MG; Start 03/22/17 at 21:00 Potassium Chloride/Dextrose/ Sod Cl (D5-NS + KCl 20 Meq) 1,000 ml @ 150 mls/hr Q6H40M IV Last administered on 03/24/17 13:28; Admin Dose 150 MLS/HR; Start at 13:57 Levothyroxine Sodium (Synthroid Iv) 75 mcg DAILY@06 IV Last administered on 09:28; Admin Dose 75 MCG; Start 03/23/17 at 06:00 TEVIN WILSON Mar 24, 2017 14:32
[2017-03-24 18:02] LABS: INR 1.15; PROTIME 14.7 Sec (12.2-14.2); PT RATIO 1.1
--- NOTE | 2017-03-24 21:25 | PN ---
Date/Time of Note Date/Time of Note DATE: 03/24/17 TIME: 21:21 Assessment/Plan VTE Prophylaxis VTE Prophylaxis Intervention: SCD's Lines/Catheters IV Catheter Type (from [facility]): Central Line Central line still needed: Yes Urinary Cath still in place: Yes Reason Cath still needed: urinary retention Assessment/Plan Chief Complaint/Hosp Course adenoca Problems: Assessment/Plan A- INR improved and VS improved.. H/H responded appropriate to transfusion P- diminish transfusion and tried to calm by emphasizing all visible cancer removed but path pending and will determine next step. Subjective 24 Hr Interval Summary Free Text/Dictation More conversational. Some concern. Not OOB and no flatus. Exam/Review of Systems Vital Signs Vitals Vital Signs Date Time Temp Pulse Resp B/P Pulse Ox O2 Delivery O2 Flow Rate FiO2 03/24/17 20:37 101 03/24/17 20:21 98.7 16 145/65 96 03/24/17 07:40 Nasal Cannula 3.0 Intake and Output 03/23/17 03/23/17 03/24/17 15:00 23:00 07:00 Intake Total 1207 ml 833 ml 460 ml Output Total 430 ml 235 ml 685 ml Balance 777 ml 598 ml -225 ml Exam Cardiovascular: nl pulses, regular rate and rhythm Gastrointestinal: soft Extremities: normal pulses Results Result Diagram: 03/24/17 1035 03/24/17 1035 Results 24 hrs Laboratory Tests Test 03/24/17 10:35 03/24/17 17:15 White Blood Count 7.1 Red Blood Count 3.14 #L Hemoglobin 9.4 #L Hematocrit 28.4 L Mean Corpuscular Volume 90.4 Mean Corpuscular Hemoglobin 29.9 Mean Corpuscular Hemoglobin Concent 33.1 Red Cell Distribution Width 16.4 H Platelet Count 120 L Mean Platelet Volume 9.2 Neutrophils % 79.8 H Lymphocytes % 13.3 L Monocytes % 5.6 Eosinophils % 0.6 Basophils % 0.1 Nucleated Red Blood Cells % 0.0 Neutrophils # 5.7 Lymphocytes # 1.0 Monocytes # 0.4 Eosinophils # 0.0 Basophils # 0.0 Nucleated Red Blood Cells # 0.0 Sodium Level 143 Potassium Level 3.6 Chloride Level 113 H Carbon Dioxide Level 24 Anion Gap 10 Blood Urea Nitrogen 8 Creatinine 0.86 Glucose Level 132 # Calcium Level 7.6 L Prothrombin Time 14.7 #H Prothrombin Time Ratio 1.1 INR International Normalized Ratio 1.15 Medications Medications Current Medications Hydromorphone HCl (Dilaudid) 0.5 mg Q1HWA PRN IV PAIN LEVEL 6-10 Last administered on 03/24/17 18:55; Admin Dose 0.5 MG; Start 03/22/17 at 14:00 Ondansetron HCl (Zofran Inj) 4 mg Q6H PRN IV NAUSEA AND/OR VOMITING; Start at 14:00 Famotidine 20 mg 20 mg Q12 IV Last administered on 03/24/17 21:14; Admin Dose 20 MG; Start 03/22/17 at 21:00 Potassium Chloride/Dextrose/ Sod Cl (D5-NS + KCl 20 Meq) 1,000 ml @ 120 mls/hr Q8H20M IV Last administered on 03/24/17 21:14; Admin Dose 150 MLS/HR; Start at 13:57 Levothyroxine Sodium (Synthroid Iv) 75 mcg DAILY@06 IV Last administered on 09:28; Admin Dose 75 MCG; Start 03/23/17 at 06:00 DEVORAH WINSTON MD Mar 24, 2017 21:25
[2017-03-24] MEDS ORDERED: ONDANSETRON 4 MG INJ IV PRN (21:30)
[2017-03-25] VITALS (12 sets, daily range): BP systolic 116–167; BP diastolic 55–75; PULSE 91–121; RESP 18–22
[2017-03-25] MEDS: D5-NS + KCL 20 MEQ 1,000 ML IV SCH ×3 (05:10→22:32)
[2017-03-25] MEDS: HYDROmorphONE 1 MG/ML SYG IV PRN ×3 (05:11→17:46)
[2017-03-25] MEDS: LEVOTHYROXINE 100 MCG VIAL IV SCH (05:54)
[2017-03-25 06:40] LABS: ADD SCAN DIFF NO
[2017-03-25 06:45] LABS: BASOPHILS % 0.1 % (0.0-2.0); EOSINOPHILS % 0.5 % (0.0-7.0); HEMATOCRIT 29.1 % (37.0-47.0); HEMOGLOBIN 9.6 g/dl (12.0-16.0); LYMPHOCYTES # 1.1 10^3/ul (0.8-2.9); LYMPHOCYTES % 13.7 % (15.0-51.0); MEAN CORPUSCULAR HEMOGLOBIN 29.8 pg (29.0-33.0); MEAN CORPUSCULAR VOLUME 90.4 fl (82.0-101.0); MEAN PLATELET VOLUME 9.3 fl (7.4-10.4); MONOCYTE # 0.4 10^3/ul (0.3-0.9); MONOCYTES % 4.8 % (0.0-11.0); NEUTROPHIL # 6.3 10^3/ul (1.6-7.5); NEUTROPHILS % 80.4 % (39.0-77.0); PLATELET COUNT 140 10^3/UL (140-415); RED BLOOD COUNT 3.22 10^6/ul (4.20-5.40); RED CELL DISTRIBUTION WIDTH 15.9 % (11.5-14.5); WHITE BLOOD COUNT 7.9 10^3/ul (4.8-10.8)
[2017-03-25 07:17] LABS: ALBUMIN 2.1 g/dl (3.3-4.9)
[2017-03-25 07:18] LABS: POTASSIUM 3.8 mmol/L (3.5-5.1)
[2017-03-25 07:20] LABS: ALBUMIN/GLOBULIN RATIO 0.67; BILIRUBIN,INDIRECT 1.3 mg/dl (0-1.1); BILIRUBIN,TOTAL 1.3 mg/dl (0.2-1.3); CALCIUM 7.5 mg/dl (8.4-10.2); CREATININE 0.84 mg/dl (0.44-1.00); TOTAL PROTEIN 5.2 g/dl (6.1-8.1)
[2017-03-25] MEDS: FAMOTIDINE 20 MG INJ IV SCH ×2 (08:59→20:50)
[2017-03-25] MEDS ORDERED: VITAMIN A & D 5 GM OINT PACKET TOP ONE (12:24)
[2017-03-25] MEDS ORDERED: GELATIN 12MM X 7 MM SPONGE ONE (12:32)
[2017-03-25] MEDS: METOCLOPRAMIDE 10 MG INJ IV SCH ×2 (12:36→17:47)
--- NOTE | 2017-03-25 13:52 | PN ---
Date/Time of Note Date/Time of Note DATE: 03/25/17 TIME: 13:49 Assessment/Plan VTE Prophylaxis VTE Prophylaxis Intervention: SCD's Lines/Catheters IV Catheter Type (from Nrs): Central Line Central line still needed: Yes Urinary Cath still in place: Yes Reason Cath still needed: urinary retention Assessment/Plan Chief Complaint/Hosp Course Assessment/Plan - Pelvic mass with local lymphadenopathy status post total abdominal hysterectomy and bilateral salpingo-oophorectomy and removal of retroperitoneal lymph nodes which were positive for adenocarcinoma of unknown source. Continue ICU care, surgical recommendations. - Coagulopathy, resolved, s/p FFP transfusion - Anemia of blood loss,s/p packed red blood cells transfusion, stable continue to monitor hemoglobin and hematocrit - Hypertension. Patient is currently normotensive. - Dyslipidemia. Further recommendations based on clinical course. Plan of care discussed with Dr. Mari. Problems: Subjective 24 Hr Interval Summary Free Text/Dictation Patient is awake alert complains of NG tube discomfort, bowel sounds are hypoactive, no flatus. Exam/Review of Systems Vital Signs Vitals Vital Signs Date Time Temp Pulse Resp B/P Pulse Ox O2 Delivery O2 Flow Rate FiO2 03/25/17 13:22 121 03/25/17 11:39 98.3 20 167/75 99 03/25/17 08:50 3.0 03/24/17 20:00 Nasal Cannula Intake and Output 03/24/17 03/24/17 03/25/17 15:00 23:00 07:00 Intake Total 1800 ml 1120 ml Output Total 1400 ml 1450 ml Balance 400 ml -330 ml Exam Constitutional: alert, oriented Psych: no complaints Head: atraumatic, normocephalic Eyes: nl conjunctiva ENMT: nl external ears & nose Neck: non-tender, supple Respiratory: clear to auscultation, normal air movement Cardiovascular: nl pulses, regular rate and rhythm Gastrointestinal: other (Hypoactive bowel sounds, generalized tenderness, status post surgery, left lower quadrant JOSSELYN), soft Musculoskeletal: nl extremities to inspection Extremities: normal pulses Neurological: CAR [employer]ER II-XII intact Skin: nl turgor Lymph: nl lymph nodes Results Result Diagram: 03/25/17 0613 03/25/17 0613 Results 24 hrs Laboratory Tests Test 03/24/17 17:15 03/25/17 06:13 Prothrombin Time 14.7 #H Prothrombin Time Ratio 1.1 INR International Normalized Ratio 1.15 White Blood Count 7.9 Red Blood Count 3.22 L Hemoglobin 9.6 L Hematocrit 29.1 L Mean Corpuscular Volume 90.4 Mean Corpuscular Hemoglobin 29.8 Mean Corpuscular Hemoglobin Concent 33.0 Red Cell Distribution Width 15.9 H Platelet Count 140 Mean Platelet Volume 9.3 Neutrophils % 80.4 H Lymphocytes % 13.7 L Monocytes % 4.8 Eosinophils % 0.5 Basophils % 0.1 Nucleated Red Blood Cells % 0.0 Neutrophils # 6.3 Lymphocytes # 1.1 Monocytes # 0.4 Eosinophils # 0.0 Basophils # 0.0 Nucleated Red Blood Cells # 0.0 Sodium Level 139 Potassium Level 3.8 Chloride Level 112 H Carbon Dioxide Level 22 Anion Gap 9 Blood Urea Nitrogen 6 L Creatinine 0.84 Glucose Level 138 Calcium Level 7.5 L Total Bilirubin 1.3 Direct Bilirubin 0.00 Indirect Bilirubin 1.3 H Aspartate Amino Transf (AST/SGOT) 17 Alanine Aminotransferase (ALT/SGPT) 24 Alkaline Phosphatase 66 Total Protein 5.2 L Albumin 2.1 L Globulin 3.10 Albumin/Globulin Ratio 0.67 Medications Medications Current Medications Hydromorphone HCl (Dilaudid) 0.5 mg Q1HWA PRN IV PAIN LEVEL 6-10 Last administered on 03/25/17 12:36; Admin Dose 0.5 MG; Start 03/22/17 at 14:00 Famotidine 20 mg 20 mg Q12 IV Last administered on 03/25/17 08:59; Admin Dose 20 MG; Start 03/22/17 at 21:00 Potassium Chloride/Dextrose/ Sod Cl (D5-NS + KCl 20 Meq) 1,000 ml @ 120 mls/hr Q8H20M IV Last administered on 03/25/17 05:10; Admin Dose 120 MLS/HR; Start at 13:57 Levothyroxine Sodium (Synthroid Iv) 75 mcg DAILY@06 IV Last administered on 05:54; Admin Dose 75 MCG; Start 03/23/17 at 06:00 Ondansetron HCl (Zofran Inj) 4 mg Q6H PRN IV NAUSEA AND/OR VOMITING; Start at 21:30 Metoclopramide HCl (Reglan) 10 mg Q6 IV Last administered on 03/25/17t 12:36; Admin Dose 10 MG; Start 03/25/17 at 12:00 LESLIE HELLER Mar 25, 2017 13:52
--- NOTE | 2017-03-25 13:54 | PN ---
Date/Time of Note Date/Time of Note DATE: 03/25/17 TIME: 13:50 Assessment/Plan VTE Prophylaxis VTE Prophylaxis Intervention: SCD's Lines/Catheters IV Catheter Type (from Nrs): Central Line Central line still needed: Yes Urinary Cath still in place: Yes Reason Cath still needed: urinary retention Assessment/Plan Chief Complaint/Hosp Course adenoca Problems: Assessment/Plan A- improving and stable labs. P- Emphasized not to be alarmed by who miscommunication yesterday about indicated that we needed to await path report. Will d/c NGT and if possible OOB Subjective 24 Hr Interval Summary Free Text/Dictation More alert and complains of abd pain and dry sore mouth. Questioned her condition. Exam/Review of Systems Vital Signs Vitals Vital Signs Date Time Temp Pulse Resp B/P Pulse Ox O2 Delivery O2 Flow Rate FiO2 03/25/17 13:22 121 03/25/17 11:39 98.3 20 167/75 99 03/25/17 08:50 3.0 03/24/17 20:00 Nasal Cannula Intake and Output 03/24/17 03/24/17 03/25/17 15:00 23:00 07:00 Intake Total 1800 ml 1120 ml Output Total 1400 ml 1450 ml Balance 400 ml -330 ml Exam Respiratory: normal air movement Cardiovascular: nl pulses, regular rate and rhythm Gastrointestinal: distended, soft, tender Extremities: normal pulses Results Result Diagram: 03/25/17 0613 03/25/17 0613 Results 24 hrs Laboratory Tests Test 03/24/17 17:15 03/25/17 06:13 Prothrombin Time 14.7 #H Prothrombin Time Ratio 1.1 INR International Normalized Ratio 1.15 White Blood Count 7.9 Red Blood Count 3.22 L Hemoglobin 9.6 L Hematocrit 29.1 L Mean Corpuscular Volume 90.4 Mean Corpuscular Hemoglobin 29.8 Mean Corpuscular Hemoglobin Concent 33.0 Red Cell Distribution Width 15.9 H Platelet Count 140 Mean Platelet Volume 9.3 Neutrophils % 80.4 H Lymphocytes % 13.7 L Monocytes % 4.8 Eosinophils % 0.5 Basophils % 0.1 Nucleated Red Blood Cells % 0.0 Neutrophils # 6.3 Lymphocytes # 1.1 Monocytes # 0.4 Eosinophils # 0.0 Basophils # 0.0 Nucleated Red Blood Cells # 0.0 Sodium Level 139 Potassium Level 3.8 Chloride Level 112 H Carbon Dioxide Level 22 Anion Gap 9 Blood Urea Nitrogen 6 L Creatinine 0.84 Glucose Level 138 Calcium Level 7.5 L Total Bilirubin 1.3 Direct Bilirubin 0.00 Indirect Bilirubin 1.3 H Aspartate Amino Transf (AST/SGOT) 17 Alanine Aminotransferase (ALT/SGPT) 24 Alkaline Phosphatase 66 Total Protein 5.2 L Albumin 2.1 L Globulin 3.10 Albumin/Globulin Ratio 0.67 Medications Medications Current Medications Hydromorphone HCl (Dilaudid) 0.5 mg Q1HWA PRN IV PAIN LEVEL 6-10 Last administered on 03/25/17 12:36; Admin Dose 0.5 MG; Start 03/22/17 at 14:00 Famotidine 20 mg 20 mg Q12 IV Last administered on 03/25/17 08:59; Admin Dose 20 MG; Start 03/22/17 at 21:00 Potassium Chloride/Dextrose/ Sod Cl (D5-NS + KCl 20 Meq) 1,000 ml @ 120 mls/hr Q8H20M IV Last administered on 03/25/17 05:10; Admin Dose 120 MLS/HR; Start at 13:57 Levothyroxine Sodium (Synthroid Iv) 75 mcg DAILY@06 IV Last administered on 05:54; Admin Dose 75 MCG; Start 03/23/17 at 06:00 Ondansetron HCl (Zofran Inj) 4 mg Q6H PRN IV NAUSEA AND/OR VOMITING; Start at 21:30 Metoclopramide HCl (Reglan) 10 mg Q6 IV Last administered on 03/25/17 12:36; Admin Dose 10 MG; Start 03/25/17 at 12:00 DEVORAH WINSTON MD Mar 25, 2017 13:54
[2017-03-26] VITALS (11 sets, daily range): BP systolic 128–135; BP diastolic 57–63; PULSE 90–103; RESP 18–22
[2017-03-26] MEDS: METOCLOPRAMIDE 10 MG INJ IV SCH ×4 (00:14→17:38)
[2017-03-26] MEDS: HYDROmorphONE 1 MG/ML SYG IV PRN ×2 (02:51→21:07)
[2017-03-26] MEDS: LEVOTHYROXINE 100 MCG VIAL IV SCH (06:10)
[2017-03-26] MEDS: D5-NS + KCL 20 MEQ 1,000 ML IV SCH ×2 (06:34→16:10)
[2017-03-26 07:12] LABS: ADD SCAN DIFF NO
[2017-03-26 07:29] LABS: BASOPHILS % 0.1 % (0.0-2.0); EOSINOPHILS # 0.2 10^3/ul (0.0-0.5); EOSINOPHILS % 2.3 % (0.0-7.0); HEMATOCRIT 29.6 % (37.0-47.0); HEMOGLOBIN 9.8 g/dl (12.0-16.0); LYMPHOCYTES # 1.3 10^3/ul (0.8-2.9); LYMPHOCYTES % 18.2 % (15.0-51.0); MEAN CORPUSCULAR HEMOGLOBIN 30.1 pg (29.0-33.0); MEAN CORPUSCULAR HGB CONC 33.1 g/dl (32.0-37.0); MEAN CORPUSCULAR VOLUME 90.8 fl (82.0-101.0); MEAN PLATELET VOLUME 9.5 fl (7.4-10.4); MONOCYTE # 0.4 10^3/ul (0.3-0.9); MONOCYTES % 5.7 % (0.0-11.0); NEUTROPHIL # 5.1 10^3/ul (1.6-7.5); NEUTROPHILS % 73.4 % (39.0-77.0); PLATELET COUNT 162 10^3/UL (140-415); RED BLOOD COUNT 3.26 10^6/ul (4.20-5.40); RED CELL DISTRIBUTION WIDTH 15.4 % (11.5-14.5)
[2017-03-26 07:50] LABS: CALCIUM 7.4 mg/dl (8.4-10.2); CREATININE 0.78 mg/dl (0.44-1.00); POTASSIUM 4.2 mmol/L (3.5-5.1)
[2017-03-26] MEDS: FAMOTIDINE 20 MG INJ IV SCH ×2 (09:22→21:07)
--- NOTE | 2017-03-26 11:23 | PN ---
Date/Time of Note Date/Time of Note DATE: 03/26/17 TIME: 11:22 Assessment/Plan VTE Prophylaxis VTE Prophylaxis Intervention: other Lines/Catheters IV Catheter Type (from Nrs): Central Line Central line still needed: Yes Urinary Cath still in place: Yes Reason Cath still needed: skin wounds contaminated by urine Assessment/Plan Chief Complaint/Hosp Course - Pelvic mass with local lymphadenopathy status post total abdominal hysterectomy and bilateral salpingo-oophorectomy and removal of retroperitoneal lymph nodes which were positive for adenocarcinoma of unknown source. Continue ICU care, surgical recommendations. - Coagulopathy, resolved, s/p FFP transfusion - Anemia of blood loss,s/p packed red blood cells transfusion, stable continue to monitor hemoglobin and hematocrit - Hypertension. Patient is currently normotensive. - Dyslipidemia. Problems: Subjective 24 Hr Interval Summary Free Text/Dictation Patient complain of abdominal pain Exam/Review of Systems Vital Signs Vitals Vital Signs Date Time Temp Pulse Resp B/P Pulse Ox O2 Delivery O2 Flow Rate FiO2 03/26/17 09:26 Nasal Cannula 3.0 03/26/17 08:27 90 03/26/17 07:04 98.1 18 128/60 99 03/26/17 05:52 32 Intake and Output 03/25/17 03/25/17 03/26/17 15:00 23:00 07:00 Intake Total 1440 ml 1100 ml Output Total 1300 ml 1060 ml Balance 140 ml 40 ml Exam Constitutional: well developed Head: atraumatic, normocephalic Neck: supple Respiratory: clear to auscultation Cardiovascular: regular rate and rhythm Gastrointestinal: non-tender, soft Extremities: normal pulses Results Result Diagram: 03/26/17 0621 03/26/17 0621 Results 24 hrs Laboratory Tests Test 03/26/17 06:21 White Blood Count 7.0 Red Blood Count 3.26 L Hemoglobin 9.8 L Hematocrit 29.6 L Mean Corpuscular Volume 90.8 Mean Corpuscular Hemoglobin 30.1 Mean Corpuscular Hemoglobin Concent 33.1 Red Cell Distribution Width 15.4 H Platelet Count 162 Mean Platelet Volume 9.5 Neutrophils % 73.4 Lymphocytes % 18.2 Monocytes % 5.7 Eosinophils % 2.3 Basophils % 0.1 Nucleated Red Blood Cells % 0.0 Neutrophils # 5.1 Lymphocytes # 1.3 Monocytes # 0.4 Eosinophils # 0.2 Basophils # 0.0 Nucleated Red Blood Cells # 0.0 Sodium Level 135 Potassium Level 4.2 Chloride Level 113 H Carbon Dioxide Level 24 Anion Gap 2 L Blood Urea Nitrogen 6 L Creatinine 0.78 Glucose Level 128 Calcium Level 7.4 L Medications Medications Current Medications Hydromorphone HCl (Dilaudid) 0.5 mg Q1HWA PRN IV PAIN LEVEL 6-10 Last administered on 03/26/17 02:51; Admin Dose 0.5 MG; Start 03/22/17 at 14:00 Famotidine 20 mg 20 mg Q12 IV Last administered on 03/26/17 09:22; Admin Dose 20 MG; Start 03/22/17 at 21:00 Potassium Chloride/Dextrose/ Sod Cl (D5-NS + KCl 20 Meq) 1,000 ml @ 120 mls/hr Q8H20M IV Last administered on 03/26/17 06:34; Admin Dose 120 MLS/HR; Start at 13:57 Levothyroxine Sodium (Synthroid Iv) 75 mcg DAILY@06 IV Last administered on 06:10; Admin Dose 75 MCG; Start 03/23/17 at 06:00 Ondansetron HCl (Zofran Inj) 4 mg Q6H PRN IV NAUSEA AND/OR VOMITING; Start at 21:30 Metoclopramide HCl (Reglan) 10 mg Q6 IV Last administered on 03/26/17 06:10; Admin Dose 10 MG; Start 03/25/17 at 12:00 NIKHIL ROMERO Mar 26, 2017 11:23
--- NOTE | 2017-03-26 14:31 | PN ---
Date/Time of Note Date/Time of Note DATE: 03/26/17 TIME: 14:27 Assessment/Plan VTE Prophylaxis VTE Prophylaxis Intervention: SCD's Lines/Catheters IV Catheter Type (from Nrsg): Central Line Central line still needed: Yes Urinary Cath still in place: Yes Reason Cath still needed: urinary retention Assessment/Plan Chief Complaint/Hosp Course adenoca Problems: Assessment/Plan A- clinically improved and sandie clear liq but not OOB P- will get PT involved if path not back by Tuesday assured son and pt will call Subjective 24 Hr Interval Summary Free Text/Dictation feels better but no flatus and not OOB. Sandie liq and less pain Exam/Review of Systems Vital Signs Vitals Vital Signs Date Time Temp Pulse Resp B/P Pulse Ox O2 Delivery O2 Flow Rate FiO2 03/26/17 12:11 96 03/26/17 11:35 98.5 18 132/61 97 03/26/17 09:26 Nasal Cannula 3.0 03/26/17 05:52 32 Intake and Output 03/25/17 03/25/17 03/26/17 15:00 23:00 07:00 Intake Total 1440 ml 1100 ml Output Total 1300 ml 1060 ml Balance 140 ml 40 ml Exam Resp- clear CVS- NSR Abd- less distension, soft, some tenderness. wound clean Ext NT Results Result Diagram: 03/26/17 0621 03/26/17 0621 Results 24 hrs Laboratory Tests Test 03/26/17 06:21 White Blood Count 7.0 Red Blood Count 3.26 L Hemoglobin 9.8 L Hematocrit 29.6 L Mean Corpuscular Volume 90.8 Mean Corpuscular Hemoglobin 30.1 Mean Corpuscular Hemoglobin Concent 33.1 Red Cell Distribution Width 15.4 H Platelet Count 162 Mean Platelet Volume 9.5 Neutrophils % 73.4 Lymphocytes % 18.2 Monocytes % 5.7 Eosinophils % 2.3 Basophils % 0.1 Nucleated Red Blood Cells % 0.0 Neutrophils # 5.1 Lymphocytes # 1.3 Monocytes # 0.4 Eosinophils # 0.2 Basophils # 0.0 Nucleated Red Blood Cells # 0.0 Sodium Level 135 Potassium Level 4.2 Chloride Level 113 H Carbon Dioxide Level 24 Anion Gap 2 L Blood Urea Nitrogen 6 L Creatinine 0.78 Glucose Level 128 Calcium Level 7.4 L Medications Medications Current Medications Hydromorphone HCl (Dilaudid) 0.5 mg Q1HWA PRN IV PAIN LEVEL 6-10 Last administered on 03/26/17 02:51; Admin Dose 0.5 MG; Start 03/22/17 at 14:00 Famotidine 20 mg 20 mg Q12 IV Last administered on 03/26/17 09:22; Admin Dose 20 MG; Start 03/22/17 at 21:00 Potassium Chloride/Dextrose/ Sod Cl (D5-NS + KCl 20 Meq) 1,000 ml @ 120 mls/hr Q8H20M IV Last administered on 03/26/17 06:34; Admin Dose 120 MLS/HR; Start at 13:57 Levothyroxine Sodium (Synthroid Iv) 75 mcg DAILY@06 IV Last administered on 06:10; Admin Dose 75 MCG; Start 03/23/17 at 06:00 Ondansetron HCl (Zofran Inj) 4 mg Q6H PRN IV NAUSEA AND/OR VOMITING; Start at 21:30 Metoclopramide HCl (Reglan) 10 mg Q6 IV Last administered on 03/26/17 12:17; Admin Dose 10 MG; Start 03/25/17 at 12:00 DEVORAH WINSTON MD Mar 26, 2017 14:31
[2017-03-27] VITALS (12 sets, daily range): BP systolic 111–147; BP diastolic 56–67; PULSE 80–97; RESP 18–20
[2017-03-27] MEDS: METOCLOPRAMIDE 10 MG INJ IV SCH ×5 (00:09→23:28)
[2017-03-27] MEDS: LEVOTHYROXINE 100 MCG VIAL IV SCH (05:09)
[2017-03-27] MEDS: D5-NS + KCL 20 MEQ 1,000 ML IV SCH ×2 (05:50→11:58)
[2017-03-27 06:49] LABS: ADD SCAN DIFF NO
[2017-03-27 07:17] LABS: ALBUMIN 2.1 g/dl (3.3-4.9); ALBUMIN/GLOBULIN RATIO 0.67; BILIRUBIN,INDIRECT 0.6 mg/dl (0-1.1); BILIRUBIN,TOTAL 0.6 mg/dl (0.2-1.3); CALCIUM 7.6 mg/dl (8.4-10.2); CREATININE 0.77 mg/dl (0.44-1.00); POTASSIUM 4.2 mmol/L (3.5-5.1); TOTAL PROTEIN 5.2 g/dl (6.1-8.1)
[2017-03-27 07:55] LABS: BASOPHILS % 0.2 % (0.0-2.0); EOSINOPHILS # 0.2 10^3/ul (0.0-0.5); EOSINOPHILS % 2.6 % (0.0-7.0); HEMATOCRIT 30.7 % (37.0-47.0); HEMOGLOBIN 9.9 g/dl (12.0-16.0); LYMPHOCYTES # 1.1 10^3/ul (0.8-2.9); LYMPHOCYTES % 16.9 % (15.0-51.0); MEAN CORPUSCULAR HEMOGLOBIN 29.5 pg (29.0-33.0); MEAN CORPUSCULAR HGB CONC 32.2 g/dl (32.0-37.0); MEAN CORPUSCULAR VOLUME 91.4 fl (82.0-101.0); MEAN PLATELET VOLUME 10.1 fl (7.4-10.4); MONOCYTE # 0.4 10^3/ul (0.3-0.9); MONOCYTES % 6.2 % (0.0-11.0); NEUTROPHIL # 4.8 10^3/ul (1.6-7.5); NEUTROPHILS % 73.8 % (39.0-77.0); RED BLOOD COUNT 3.36 10^6/ul (4.20-5.40); RED CELL DISTRIBUTION WIDTH 15.6 % (11.5-14.5); WHITE BLOOD COUNT 6.4 10^3/ul (4.8-10.8)
[2017-03-27] MEDS: FAMOTIDINE 20 MG INJ IV SCH ×2 (09:17→21:15)
[2017-03-27 10:32] LABS: PLATELET COUNT 127 10^3/UL (140-415); PLATELET ESTIMATE PLT APPEAR INCREASED
--- NOTE | 2017-03-27 11:25 | PN ---
Date/Time of Note Date/Time of Note DATE: 03/27/17 TIME: 11:25 Assessment/Plan VTE Prophylaxis VTE Prophylaxis Intervention: other Lines/Catheters IV Catheter Type (from Nrs): Central Line Central line still needed: Yes Urinary Cath still in place: Yes Reason Cath still needed: skin wounds contaminated by urine Assessment/Plan Chief Complaint/Hosp Course - Pelvic mass with local lymphadenopathy status post total abdominal hysterectomy and bilateral salpingo-oophorectomy and removal of retroperitoneal lymph nodes which were positive for adenocarcinoma of unknown source. Continue ICU care, surgical recommendations. - Coagulopathy, resolved, s/p FFP transfusion - Anemia of blood loss,s/p packed red blood cells transfusion, stable continue to monitor hemoglobin and hematocrit - Hypertension. Patient is currently normotensive. - Dyslipidemia. Problems: Subjective 24 Hr Interval Summary Free Text/Dictation Patient complain of abdominal pain Exam/Review of Systems Vital Signs Vitals Vital Signs Date Time Temp Pulse Resp B/P Pulse Ox O2 Delivery O2 Flow Rate FiO2 03/27/17 09:35 Nasal Cannula 3.0 03/27/17 08:40 86 03/27/17 07:25 97.6 20 123/56 100 03/26/17 05:52 32 Intake and Output 03/26/17 03/26/17 03/27/17 15:00 23:00 07:00 Intake Total 225 ml 1025 ml Output Total 60 ml 1120 ml Balance 165 ml -95 ml Exam Constitutional: well developed Head: atraumatic, normocephalic Neck: supple Respiratory: clear to auscultation Cardiovascular: regular rate and rhythm Gastrointestinal: soft, tender Extremities: normal pulses Results Result Diagram: 03/27/17 0600 03/27/17 0600 Results 24 hrs Laboratory Tests Test 03/27/17 06:00 White Blood Count 6.4 Red Blood Count 3.36 L Hemoglobin 9.9 L Hematocrit 30.7 L Mean Corpuscular Volume 91.4 Mean Corpuscular Hemoglobin 29.5 Mean Corpuscular Hemoglobin Concent 32.2 Red Cell Distribution Width 15.6 H Platelet Count 127 #L Mean Platelet Volume 10.1 Neutrophils % 73.8 Lymphocytes % 16.9 Monocytes % 6.2 Eosinophils % 2.6 Basophils % 0.2 Nucleated Red Blood Cells % 0.0 Neutrophils # 4.8 Lymphocytes # 1.1 Monocytes # 0.4 Eosinophils # 0.2 Basophils # 0.0 Nucleated Red Blood Cells # 0.0 Platelet Estimate PLT APPEAR INCREASED Large Platelets FEW Sodium Level 135 Potassium Level 4.2 Chloride Level 111 H Carbon Dioxide Level 25 Anion Gap 3 L Blood Urea Nitrogen 6 L Creatinine 0.77 Glucose Level 97 Calcium Level 7.6 L Total Bilirubin 0.6 Direct Bilirubin 0.00 Indirect Bilirubin 0.6 Aspartate Amino Transf (AST/SGOT) 16 Alanine Aminotransferase (ALT/SGPT) 20 Alkaline Phosphatase 80 Total Protein 5.2 L Albumin 2.1 L Globulin 3.10 Albumin/Globulin Ratio 0.67 Carcinoembryonic Antigen 23.5 H Medications Medications Current Medications Hydromorphone HCl (Dilaudid) 0.5 mg Q1HWA PRN IV PAIN LEVEL 6-10 Last administered on 03/26/17 21:07; Admin Dose 0.5 MG; Start 03/22/17 at 14:00 Famotidine 20 mg 20 mg Q12 IV Last administered on 03/27/17 09:17; Admin Dose 20 MG; Start 03/22/17 at 21:00 Potassium Chloride/Dextrose/ Sod Cl (D5-NS + KCl 20 Meq) 1,000 ml @ 75 mls/hr [id number] IV Last administered on 03/27/17 05:50; Admin Dose 75 MLS/HR; Start at 13:57 Levothyroxine Sodium (Synthroid Iv) 75 mcg DAILY@06 IV Last administered on 05:09; Admin Dose 75 MCG; Start 03/23/17 at 06:00 Ondansetron HCl (Zofran Inj) 4 mg Q6H PRN IV NAUSEA AND/OR VOMITING; Start at 21:30 Metoclopramide HCl (Reglan) 10 mg Q6 IV Last administered on 03/27/17 05:08; Admin Dose 10 MG; Start 03/25/17 at 12:00 NIKHIL ROMERO Mar 27, 2017 11:25
--- NOTE | 2017-03-27 13:05 | PN ---
Date/Time of Note Date/Time of Note DATE: 03/27/17 TIME: 13:00 Assessment/Plan VTE Prophylaxis VTE Prophylaxis Intervention: SCD's Lines/Catheters IV Catheter Type (from Nrs): Central Line Central line still needed: Yes Urinary Cath still in place: Yes Reason Cath still needed: urinary retention Assessment/Plan Chief Complaint/Hosp Course adenoca Problems: Assessment/Plan A- gradual impvt P- adv to full liq a.m. and mobilize. Will inquire why physical therapy has not mobilized Subjective 24 Hr Interval Summary Free Text/Dictation possible minimal flatus yesterday. indicates PT has not evaluated and not OOB at all. Yulissa clear liq. Some frustration over no path report. Exam/Review of Systems Vital Signs Vitals Vital Signs Date Time Temp Pulse Resp B/P Pulse Ox O2 Delivery O2 Flow Rate FiO2 03/27/17 12:27 80 03/27/17 11:53 97.9 20 122/56 03/27/17 09:35 Nasal Cannula 3.0 03/27/17 07:25 100 03/26/17 05:52 32 Intake and Output 03/26/17 03/26/17 03/27/17 15:00 23:00 07:00 Intake Total 225 ml 1025 ml Output Total 60 ml 1120 ml Balance 165 ml -95 ml Exam Resp - clear CVS- NSR Abd softer with less distension and clean wound , less tender. Ext: NT no edema Results Result Diagram: 03/27/17 0600 03/27/17 0600 Results 24 hrs Laboratory Tests Test 03/27/17 06:00 White Blood Count 6.4 Red Blood Count 3.36 L Hemoglobin 9.9 L Hematocrit 30.7 L Mean Corpuscular Volume 91.4 Mean Corpuscular Hemoglobin 29.5 Mean Corpuscular Hemoglobin Concent 32.2 Red Cell Distribution Width 15.6 H Platelet Count 127 #L Mean Platelet Volume 10.1 Neutrophils % 73.8 Lymphocytes % 16.9 Monocytes % 6.2 Eosinophils % 2.6 Basophils % 0.2 Nucleated Red Blood Cells % 0.0 Neutrophils # 4.8 Lymphocytes # 1.1 Monocytes # 0.4 Eosinophils # 0.2 Basophils # 0.0 Nucleated Red Blood Cells # 0.0 Platelet Estimate PLT APPEAR INCREASED Large Platelets FEW Sodium Level 135 Potassium Level 4.2 Chloride Level 111 H Carbon Dioxide Level 25 Anion Gap 3 L Blood Urea Nitrogen 6 L Creatinine 0.77 Glucose Level 97 Calcium Level 7.6 L Total Bilirubin 0.6 Direct Bilirubin 0.00 Indirect Bilirubin 0.6 Aspartate Amino Transf (AST/SGOT) 16 Alanine Aminotransferase (ALT/SGPT) 20 Alkaline Phosphatase 80 Total Protein 5.2 L Albumin 2.1 L Globulin 3.10 Albumin/Globulin Ratio 0.67 Carcinoembryonic Antigen 23.5 H Medications Medications Current Medications Hydromorphone HCl (Dilaudid) 0.5 mg Q1HWA PRN IV PAIN LEVEL 6-10 Last administered on 03/26/17 21:07; Admin Dose 0.5 MG; Start 03/22/17 at 14:00 Famotidine 20 mg 20 mg Q12 IV Last administered on 03/27/17 09:17; Admin Dose 20 MG; Start 03/22/17 at 21:00 Potassium Chloride/Dextrose/ Sod Cl (D5-NS + KCl 20 Meq) 1,000 ml @ 75 mls/hr [id number] IV Last administered on 03/27/17 05:50; Admin Dose 75 MLS/HR; Start at 13:57 Levothyroxine Sodium (Synthroid Iv) 75 mcg DAILY@06 IV Last administered on 05:09; Admin Dose 75 MCG; Start 03/23/17 at 06:00 Ondansetron HCl (Zofran Inj) 4 mg Q6H PRN IV NAUSEA AND/OR VOMITING; Start at 21:30 Metoclopramide HCl (Reglan) 10 mg Q6 IV Last administered on 03/27/17 12:25; Admin Dose 10 MG; Start 03/25/17 at 12:00 DEVORAH WINSTON MD Mar 27, 2017 13:04
[2017-03-27] MEDS: HYDROmorphONE 1 MG/ML SYG IV PRN ×2 (17:06→23:25)
[2017-03-28] VITALS (14 sets, daily range): BP systolic 106–176; BP diastolic 52–72; PULSE 74–96; RESP 18–68
[2017-03-28] MEDS: D5-NS + KCL 20 MEQ 1,000 ML IV SCH ×2 (00:28→14:38)
[2017-03-28] MEDS: METOCLOPRAMIDE 10 MG INJ IV SCH ×4 (05:37→23:22)
[2017-03-28] MEDS: LEVOTHYROXINE 100 MCG VIAL IV SCH (05:37)
[2017-03-28 06:43] LABS: ADD SCAN DIFF NO
[2017-03-28 06:50] LABS: BASOPHILS % 0.2 % (0.0-2.0); EOSINOPHILS # 0.1 10^3/ul (0.0-0.5); EOSINOPHILS % 2.1 % (0.0-7.0); HEMATOCRIT 30.6 % (37.0-47.0); HEMOGLOBIN 9.9 g/dl (12.0-16.0); LYMPHOCYTES % 15.8 % (15.0-51.0); MEAN CORPUSCULAR HEMOGLOBIN 29.5 pg (29.0-33.0); MEAN CORPUSCULAR HGB CONC 32.4 g/dl (32.0-37.0); MEAN CORPUSCULAR VOLUME 91.1 fl (82.0-101.0); MEAN PLATELET VOLUME 9.1 fl (7.4-10.4); MONOCYTE # 0.4 10^3/ul (0.3-0.9); MONOCYTES % 6.1 % (0.0-11.0); NEUTROPHIL # 4.7 10^3/ul (1.6-7.5); NEUTROPHILS % 75.3 % (39.0-77.0); PLATELET COUNT 210 10^3/UL (140-415); RED BLOOD COUNT 3.36 10^6/ul (4.20-5.40); RED CELL DISTRIBUTION WIDTH 15.3 % (11.5-14.5); WHITE BLOOD COUNT 6.3 10^3/ul (4.8-10.8)
[2017-03-28 07:04] LABS: CREATININE 0.84 mg/dl (0.44-1.00)
[2017-03-28 07:05] LABS: CALCIUM 8.1 mg/dl (8.4-10.2)
[2017-03-28] MEDS: FAMOTIDINE 20 MG INJ IV SCH ×2 (09:27→20:55)
--- NOTE | 2017-03-28 18:56 | PN ---
Date/Time of Note Date/Time of Note DATE: 03/28/17 TIME: 18:54 Assessment/Plan VTE Prophylaxis VTE Prophylaxis Intervention: SCD's Lines/Catheters IV Catheter Type (from Nrs): Central Line Central line still needed: Yes Urinary Cath still in place: Yes Reason Cath still needed: urinary retention Assessment/Plan Chief Complaint/Hosp Course Assessment/Plan - Pelvic mass with local lymphadenopathy status post total abdominal hysterectomy and bilateral salpingo-oophorectomy and removal of retroperitoneal lymph nodes which were positive for adenocarcinoma of unknown source. Continue to follow-up surgical recommendation. - Coagulopathy, resolved, s/p FFP transfusion - Anemia of blood loss,s/p packed red blood cells transfusion, stable continue to monitor hemoglobin and hematocrit - Hypertension. Patient is currently normotensive. - Dyslipidemia. Further recommendations based on clinical course. Plan of care discussed with Dr. Mari. Problems: Subjective 24 Hr Interval Summary Free Text/Dictation Patient tolerates clear liquid well, will be advanced to full liquid in a.m., pain is well controlled. Exam/Review of Systems Vital Signs Vitals Vital Signs Date Time Temp Pulse Resp B/P Pulse Ox O2 Delivery O2 Flow Rate FiO2 03/28/17 17:21 83 03/28/17 16:28 97.9 20 140/63 99 03/28/17 09:00 Nasal Cannula 3.0 03/26/17 05:52 32 Intake and Output 03/27/17 03/27/17 03/28/17 15:00 23:00 07:00 Intake Total 1350 ml 240 ml Output Total 1300 ml 760 ml Balance 50 ml -520 ml Exam Constitutional: alert, oriented Psych: no complaints Head: atraumatic, normocephalic Eyes: nl conjunctiva ENMT: nl external ears & nose Neck: non-tender, supple Respiratory: clear to auscultation, normal air movement Cardiovascular: nl pulses, regular rate and rhythm Gastrointestinal: other (Hypoactive bowel sounds, generalized tenderness, status post surgery, left lower quadrant JOSSELYN), soft Musculoskeletal: nl extremities to inspection Extremities: normal pulses 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 Skin: nl turgor Lymph: nl lymph nodes Results Result Diagram: 03/28/17 0615 03/28/17 0615 Results 24 hrs Laboratory Tests Test 03/28/17 06:15 White Blood Count 6.3 Red Blood Count 3.36 L Hemoglobin 9.9 L Hematocrit 30.6 L Mean Corpuscular Volume 91.1 Mean Corpuscular Hemoglobin 29.5 Mean Corpuscular Hemoglobin Concent 32.4 Red Cell Distribution Width 15.3 H Platelet Count 210 # Mean Platelet Volume 9.1 Neutrophils % 75.3 Lymphocytes % 15.8 Monocytes % 6.1 Eosinophils % 2.1 Basophils % 0.2 Nucleated Red Blood Cells % 0.0 Neutrophils # 4.7 Lymphocytes # 1.0 Monocytes # 0.4 Eosinophils # 0.1 Basophils # 0.0 Nucleated Red Blood Cells # 0.0 Sodium Level 136 Potassium Level 4.0 Chloride Level 106 Carbon Dioxide Level 25 Anion Gap 9 # Blood Urea Nitrogen 8 Creatinine 0.84 Glucose Level 92 Calcium Level 8.1 L Medications Medications Current Medications Hydromorphone HCl (Dilaudid) 0.5 mg Q1HWA PRN IV PAIN LEVEL 6-10 Last administered on 03/27/17 23:25; Admin Dose 0.5 MG; Start 03/22/17 at 14:00 Famotidine 20 mg 20 mg Q12 IV Last administered on 03/28/17 09:27; Admin Dose 20 MG; Start 03/22/17 at 21:00 Potassium Chloride/Dextrose/ Sod Cl (D5-NS + KCl 20 Meq) 1,000 ml @ 75 mls/hr [id number] IV Last administered on 03/28/17 00:28; Admin Dose 75 MLS/HR; Start at 13:57 Levothyroxine Sodium (Synthroid Iv) 75 mcg DAILY@06 IV Last administered on 03/28 05:37; Admin Dose 75 MCG; Start 03/23/17 at 06:00 Ondansetron HCl (Zofran Inj) 4 mg Q6H PRN IV NAUSEA AND/OR VOMITING; Start at 21:30 Metoclopramide HCl (Reglan) 10 mg Q6 IV Last administered on 03/28/17 18:25; Admin Dose 10 MG; Start 03/25/17 at 12:00 LESLIE HELLER March 28, 2017 18:56
--- NOTE | 2017-03-28 20:20 | PN ---
Date/Time of Note Date/Time of Note DATE: 03/28/17 TIME: 20:11 Assessment/Plan VTE Prophylaxis VTE Prophylaxis Intervention: SCD's Lines/Catheters IV Catheter Type (from Nrs): Central Line Central line still needed: Yes Urinary Cath still in place: Yes Reason Cath still needed: urinary retention Assessment/Plan Chief Complaint/Hosp Course adenoca Problems: Assessment/Plan A- discussed path report with Path and strongly suggests breast primary P- CT upper abd and chest and discuss with Onc/consult- called Subjective 24 Hr Interval Summary Free Text/Dictation Less pain and + minimal flatus . Only sat on bedside. No PT and did not ambulate. Exam/Review of Systems Vital Signs Vitals Vital Signs Date Time Temp Pulse Resp B/P Pulse Ox O2 Delivery O2 Flow Rate FiO2 03/28/17 19:50 97.6 98 18 136/60 97 03/28/17 09:00 Nasal Cannula 3.0 03/26/17 05:52 32 Intake and Output 03/27/17 03/27/17 03/28/17 15:00 23:00 07:00 Intake Total 1350 ml 240 ml Output Total 1300 ml 760 ml Balance 50 ml -520 ml Exam Neck: non-tender, supple Respiratory: normal air movement Cardiovascular: nl pulses, regular rate and rhythm Gastrointestinal: non-tender, soft Extremities: normal pulses Results Result Diagram: 03/28/17 0615 03/28/17 0615 Results 24 hrs Laboratory Tests Test 03/28/17 06:15 White Blood Count 6.3 Red Blood Count 3.36 L Hemoglobin 9.9 L Hematocrit 30.6 L Mean Corpuscular Volume 91.1 Mean Corpuscular Hemoglobin 29.5 Mean Corpuscular Hemoglobin Concent 32.4 Red Cell Distribution Width 15.3 H Platelet Count 210 # Mean Platelet Volume 9.1 Neutrophils % 75.3 Lymphocytes % 15.8 Monocytes % 6.1 Eosinophils % 2.1 Basophils % 0.2 Nucleated Red Blood Cells % 0.0 Neutrophils # 4.7 Lymphocytes # 1.0 Monocytes # 0.4 Eosinophils # 0.1 Basophils # 0.0 Nucleated Red Blood Cells # 0.0 Sodium Level 136 Potassium Level 4.0 Chloride Level 106 Carbon Dioxide Level 25 Anion Gap 9 # Blood Urea Nitrogen 8 Creatinine 0.84 Glucose Level 92 Calcium Level 8.1 L Medications Medications Current Medications Hydromorphone HCl (Dilaudid) 0.5 mg Q1HWA PRN IV PAIN LEVEL 6-10 Last administered on 03/27/17 23:25; Admin Dose 0.5 MG; Start 03/22/17 at 14:00 Famotidine 20 mg 20 mg Q12 IV Last administered on 03/28/17 09:27; Admin Dose 20 MG; Start 03/22/17 at 21:00 Potassium Chloride/Dextrose/ Sod Cl (D5-NS + KCl 20 Meq) 1,000 ml @ 75 mls/hr [id number] IV Last administered on 03/28/17 00:28; Admin Dose 75 MLS/HR; Start at 13:57 Levothyroxine Sodium (Synthroid Iv) 75 mcg DAILY@06 IV Last administered on 03/28 05:37; Admin Dose 75 MCG; Start 03/23/17 at 06:00 Ondansetron HCl (Zofran Inj) 4 mg Q6H PRN IV NAUSEA AND/OR VOMITING; Start at 21:30 Metoclopramide HCl (Reglan) 10 mg Q6 IV Last administered on 03/28/17 18:25; Admin Dose 10 MG; Start 03/25/17 at 12:00 DEVORAH WINSTON MD March 28, 2017 20:20
[2017-03-28] MEDS: HYDROmorphONE 1 MG/ML SYG IV PRN (20:58)
[2017-03-29] VITALS (13 sets, daily range): BP systolic 129–147; BP diastolic 58–65; PULSE 82–95; RESP 18–20
[2017-03-29] MEDS: D5-NS + KCL 20 MEQ 1,000 ML IV SCH ×3 (04:13→20:32)
[2017-03-29] MEDS: METOCLOPRAMIDE 10 MG INJ IV SCH ×4 (05:26→23:17)
[2017-03-29] MEDS: LEVOTHYROXINE 100 MCG VIAL IV SCH (05:27)
[2017-03-29] MEDS ORDERED: IOHEXOL 14.3 MG(I)/ML (ADULT) BTL PO ONE (07:00)
[2017-03-29] MEDS: FAMOTIDINE 20 MG INJ IV SCH ×2 (08:29→20:23)
[2017-03-29 08:39] LABS: ADD SCAN DIFF NO
[2017-03-29 08:48] LABS: BASOPHILS % 0.4 % (0.0-2.0); EOSINOPHILS # 0.1 10^3/ul (0.0-0.5); EOSINOPHILS % 2.4 % (0.0-7.0); HEMATOCRIT 29.4 % (37.0-47.0); HEMOGLOBIN 9.4 g/dl (12.0-16.0); LYMPHOCYTES % 18.6 % (15.0-51.0); MEAN CORPUSCULAR HEMOGLOBIN 28.8 pg (29.0-33.0); MEAN CORPUSCULAR VOLUME 90.2 fl (82.0-101.0); MEAN PLATELET VOLUME 9.5 fl (7.4-10.4); MONOCYTE # 0.4 10^3/ul (0.3-0.9); MONOCYTES % 6.7 % (0.0-11.0); NEUTROPHILS % 71.5 % (39.0-77.0); PLATELET COUNT 246 10^3/UL (140-415); RED BLOOD COUNT 3.26 10^6/ul (4.20-5.40); RED CELL DISTRIBUTION WIDTH 15.1 % (11.5-14.5); WHITE BLOOD COUNT 5.5 10^3/ul (4.8-10.8)
[2017-03-29 09:38] LABS: CALCIUM 8.1 mg/dl (8.4-10.2); CREATININE 0.84 mg/dl (0.44-1.00); POTASSIUM 4.1 mmol/L (3.5-5.1)
[2017-03-29] MEDS ORDERED: IODIXANOL LOCM 100 ML BTL ONE (13:04)
[2017-03-29] MEDS ORDERED: SOD CHLORIDE 0.9% 100 ML ONE (13:04)
--- NOTE | 2017-03-29 15:28 | PN ---
Date/Time of Note Date/Time of Note DATE: 03/29/17 TIME: 15:26 Assessment/Plan VTE Prophylaxis VTE Prophylaxis Intervention: SCD's Lines/Catheters IV Catheter Type (from Nrs): Central Line Central line still needed: Yes Urinary Cath still in place: Yes Reason Cath still needed: urinary retention Assessment/Plan Chief Complaint/Hosp Course Assessment/Plan - Pelvic mass with local lymphadenopathy status post total abdominal hysterectomy and bilateral salpingo-oophorectomy and removal of retroperitoneal lymph nodes which were positive for adenocarcinoma with strong suggestion of breast primary per path. Continue to follow-up surgical recommendation. - Coagulopathy, resolved, s/p FFP transfusion - Anemia of blood loss,s/p packed red blood cells transfusion, stable continue to monitor hemoglobin and hematocrit - Hypertension. Patient is currently normotensive. - Dyslipidemia. Further recommendations based on clinical course. Plan of care discussed with Dr. Mari. Problems: Subjective 24 Hr Interval Summary Free Text/Dictation Patient status post CT of the abdomen and pelvis, tolerated clear liquids well, denies any nausea vomiting, remains afebrile. Exam/Review of Systems Vital Signs Vitals Vital Signs Date Time Temp Pulse Resp B/P Pulse Ox O2 Delivery O2 Flow Rate FiO2 03/29/17 12:13 95 03/29/17 11:10 97.8 20 136/60 96 03/28/17 09:00 Nasal Cannula 3.0 03/26/17 05:52 32 Intake and Output 03/28/17 03/28/17 03/29/17 15:00 23:00 07:00 Intake Total 1000 ml 1425 ml Output Total 950 ml 1025 ml Balance 50 ml 400 ml Exam Constitutional: alert, oriented Psych: no complaints Head: atraumatic, normocephalic Eyes: nl conjunctiva ENMT: nl external ears & nose Neck: non-tender, supple Respiratory: clear to auscultation, normal air movement Cardiovascular: nl pulses, regular rate and rhythm Gastrointestinal: other (Hypoactive bowel sounds, generalized tenderness, status post surgery, left lower quadrant JOSSELYN), soft Musculoskeletal: nl extremities to inspection Extremities: normal pulses 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 Skin: nl turgor Lymph: nl lymph nodes Results Result Diagram: 03/29/17 0722 03/29/17 0722 Results 24 hrs Laboratory Tests Test 03/29/17 07:22 White Blood Count 5.5 Red Blood Count 3.26 L Hemoglobin 9.4 L Hematocrit 29.4 L Mean Corpuscular Volume 90.2 Mean Corpuscular Hemoglobin 28.8 L Mean Corpuscular Hemoglobin Concent 32.0 Red Cell Distribution Width 15.1 H Platelet Count 246 Mean Platelet Volume 9.5 Neutrophils % 71.5 Lymphocytes % 18.6 Monocytes % 6.7 Eosinophils % 2.4 Basophils % 0.4 Nucleated Red Blood Cells % 0.0 Neutrophils # 4.0 Lymphocytes # 1.0 Monocytes # 0.4 Eosinophils # 0.1 Basophils # 0.0 Nucleated Red Blood Cells # 0.0 Sodium Level 134 L Potassium Level 4.1 Chloride Level 106 Carbon Dioxide Level 27 Anion Gap 5 L Blood Urea Nitrogen 9 Creatinine 0.84 Glucose Level 101 Calcium Level 8.1 L Medications Medications Current Medications Hydromorphone HCl (Dilaudid) 0.5 mg Q1HWA PRN IV PAIN LEVEL 6-10 Last administered on 03/28/17 20:58; Admin Dose 0.5 MG; Start 03/22/17 at 14:00 Famotidine 20 mg 20 mg Q12 IV Last administered on 03/29/17 08:29; Admin Dose 20 MG; Start 03/22/17 at 21:00 Potassium Chloride/Dextrose/ Sod Cl (D5-NS + KCl 20 Meq) 1,000 ml @ 75 mls/hr [id number] IV Last administered on 03/29/17 04:13; Admin Dose 75 MLS/HR; Start at 13:57 Levothyroxine Sodium (Synthroid Iv) 75 mcg DAILY@06 IV Last administered on 03/29 05:27; Admin Dose 75 MCG; Start 03/23/17 at 06:00 Ondansetron HCl (Zofran Inj) 4 mg Q6H PRN IV NAUSEA AND/OR VOMITING; Start at 21:30 Metoclopramide HCl (Reglan) 10 mg Q6 IV Last administered on 03/29/17 11:31; Admin Dose 10 MG; Start 03/25/17 at 12:00 LESLIE HELLER March 29, 2017 15:28
--- NOTE | 2017-03-29 15:59 | RADRPT ---
PROCEDURE: CT Chest, abdomen and pelvis with contrast. CLINICAL INDICATION: 87-year-old female. Postop for pelvic mass of unknown primary. TECHNIQUE: CT scan of the chest and abdomen with contrast was performed on a multidetector high-re solution CT scanner following administration of 100 cc of Isovue Visipaque 320.. Coronal and sagitt al reformatted images were obtained from the axial source images. Images were reviewed on a [employer] PACS workstation. The total exam CTDI equals 14.6 mGy and the total exam DLP equals 1040 mGy -cm. One or more of the following dose reduction techniques were used: - Automated exposure control. - Adjustment of the mA and/or kV according to patient size. Use of iterative reconstruction technique. COMPARISON: None available FINDINGS: CT Chest: FINDINGS: Soft tissues and thyroid: Normal. Lungs and pleural spaces: There are peripheral ground-glass infiltrates in the anterior segment of t he right upper lobe. There is a plate-like atelectasis adjacent to the major fissures. There are ti ny nodular densities in the major fissure in the inferior aspect of the right upper lobe. There are bilateral pleural effusions. There is peribronchial thickening in the bronchial spleen to the righ t left lower lobes. There are bilateral pleural effusions. Heart and pulmonary vasculature : A small bore central venous catheter enters from right internal ju gular approach with its tip in the superior vena cava. Heart is normal in size. There are vascular calcifications at the root of the aorta and the coronary arteries. There is trace pericardial flui d. Lymph nodes: No enlarged hilar or mediastinal lymph nodes are identified. No enlarged supraclavicul ar axillary lymph nodes are identified. Bony elements: There are degenerative osteophytes in the thoracic and lumbar spine. No acute bony f racture or bone metastasis is noted. Vasculature: Atherosclerotic vascular calcifications are present in the thoracic aorta. There are v ascular calcifications in the right subclavian artery. There is tortuosity of the proximal common c arotid arteries. CT Abdomen and pelvis : Soft tissues: There is anasarca in the subcutaneous tissues around the abdomen pelvis. There are ski n natalya over the anterior abdominal wall extending from just above the umbilicus to the lower thir d of the pelvis. There is some stranding in the subcutaneous fat adjacent to the upper natalya like ly representing postsurgical change. No abscess or hematoma is identified The liver, common bile duct and gallbladder: The liver is unremarkable. The hepatic and portal vein s are patent. No hepatic mass or intrahepatic biliary ductal dilatation is identified. The gallbla dder is surgically removed with clips in the raisa hepatis area. Gastrointestinal: There is a small hiatal hernia. No gastric mass is identified. The small bowel l oops have a normal caliber. There is a 5.3 mm soft tissue mass and a small bowel loop in the centra l abdomen. Series 3; image 139. There is stranding in the fat adjacent to the rectal ampulla. There is fluid in the rectal ampulla but no wall thickening. There are small diverticula in the sigmoid colon. A drainage catheter ente rs the left anterior lateral lower abdominal wall with the tip of the catheter in the ventral pelvis adjacent to the ventral surface of the urinary bladder. Pancreas: Normal. Kidneys, bladder and adrenal glands : The adrenal glands are normal. There is no evidence of a chau d mass or hydronephrosis involving either kidney. A Pastrana catheter is identified in the urinary isabel dder. There is no evidence of bladder stone or bladder wall thickening. Spleen: Normal. Lymph nodes: Enlarged left inguinal lymph node is identified measuring the 9.5 cm in long axis by 5. 5 x 2.1 cm. An enlarged 3 x 2.3 cm right inguinal lymph node is identified. There are small retrop eritoneal lymph nodes adjacent to the lower abdominal aorta. Reproductive system and pelvis : The ovaries and uterus are not identified. Bony elements: There is a levoscoliosis of the lumbar spine. There are degenerative osteophytes in the thoracic and lumbosacral spine. There is grade 1 anterolisthesis of L5 and S1. There is no reta dence of spondylolysis. The T8, 29 T10 vertebra are partially fused. No acute bony fracture or bon e metastasis is identified. Vasculature: Atherosclerotic vascular calcifications are identified in the abdominal aorta and its b ranches. IMPRESSION: 1. There are bilateral pleural effusions with compressive atelectasis and air bronchograms in the r ight left lower lobes. There are small sub centimeter nodular densities adjacent to the major fissur e in the right upper lobe. 2. Peripheral ground-glass infiltrates are noted in the right upper lobe. 3. No lung mass, hilar mass or enlarged mediastinal lymph node is identified. 4. Anasarca. 5. Status post cholecystectomy. 6. There is an elongated soft tissue mass in a small bowel loop in the midabdomen slightly left of m idline measuring 3 cm in length by 0.7 millimeter in width by 6.3 millimeter. Series 04/2002; image 28. 7. There are massively enlarged bilateral inguinal lymph nodes. 8. Osteoarthritis of the thoracic and lumbosacral spine with grade 1 anterolisthesis of L5 on S1. N o bone metastasis is identified. 9. Atherosclerotic vascular disease. 10. A percutaneous drainage catheter enters the lower left abdomen with its distal tip ventral to th e urinary bladder. RPTAT:AAJJ Physician Madai Date Time Electronically viewed and signed by Bobby Almanza Physician on 03/29/2017 15:58 JM/
[2017-03-29] MEDS: HYDROmorphONE 1 MG/ML SYG IV PRN (20:25)
[2017-03-30] VITALS (12 sets, daily range): BP systolic 117–147; BP diastolic 56–66; PULSE 78–86; RESP 17–20
[2017-03-30] MEDS: METOCLOPRAMIDE 10 MG INJ IV SCH ×4 (05:50→23:15)
[2017-03-30] MEDS: LEVOTHYROXINE 100 MCG VIAL IV SCH (05:50)
[2017-03-30] MEDS: D5-NS + KCL 20 MEQ 1,000 ML IV SCH ×2 (06:08→10:08)
[2017-03-30 08:02] LABS: ADD SCAN DIFF NO
[2017-03-30 08:08] LABS: BASOPHILS % 0.2 % (0.0-2.0); EOSINOPHILS # 0.1 10^3/ul (0.0-0.5); EOSINOPHILS % 2.2 % (0.0-7.0); HEMATOCRIT 28.1 % (37.0-47.0); HEMOGLOBIN 9.1 g/dl (12.0-16.0); LYMPHOCYTES % 19.8 % (15.0-51.0); MEAN CORPUSCULAR HEMOGLOBIN 29.1 pg (29.0-33.0); MEAN CORPUSCULAR HGB CONC 32.4 g/dl (32.0-37.0); MEAN CORPUSCULAR VOLUME 89.8 fl (82.0-101.0); MEAN PLATELET VOLUME 9.2 fl (7.4-10.4); MONOCYTE # 0.4 10^3/ul (0.3-0.9); MONOCYTES % 7.2 % (0.0-11.0); NEUTROPHIL # 3.6 10^3/ul (1.6-7.5); PLATELET COUNT 250 10^3/UL (140-415); RED BLOOD COUNT 3.13 10^6/ul (4.20-5.40); RED CELL DISTRIBUTION WIDTH 15.1 % (11.5-14.5); WHITE BLOOD COUNT 5.1 10^3/ul (4.8-10.8)
[2017-03-30] MEDS: FAMOTIDINE 20 MG INJ IV SCH ×2 (08:10→20:37)
[2017-03-30 08:29] LABS: POTASSIUM 3.8 mmol/L (3.5-5.1)
[2017-03-30 08:31] LABS: CREATININE 0.88 mg/dl (0.44-1.00)
[2017-03-30 08:32] LABS: CALCIUM 7.9 mg/dl (8.4-10.2)
--- NOTE | 2017-03-30 09:01 | CONS ---
Date/Time of Note Date/Time of Note DATE: 03/30/17 TIME: 08:40 Assessment/Plan Assessment/Plan Chief Complaint/Hosp Course 87 yo female with a large uterus and abdominal / pelvic lymphadenopathy originally though to be secondary to uterine cancer. Pt is now s/p DANN BSO with extensive lymph node dissection. Interestingly the uterus did not show cancer but 19/34 lymph nodes dissected demonstrated adenocarcinoma consistent with breast primary. ER was found to be positive at 80%, WI negative and Her 2 is currently pending. Thus far a CT C/A/P demonstrates massive inguinal LAD as well as pleural effusions but there is no obvious breast lesion on imaging or my physical exam. #Aden[place] of unknown primary - the GATA3 positivity and CK 7 positivity do make this a likely breast cancer -will wait for final path results. may need to send path for a second opinion -f/u Her 2 status -if confirmed ER+ Her 2 neg stage IV breast ca,w ill need to start aromatase inhibitor -bone scan ordered given patient's complaints of neck pain. -f/u bilateral breast ultrasound to help identify primary lesion #s/p abdominal surgery -continue PT and to advance diet -postop care per Dr. Wellington Case was discusser at length with Dr. Wellington as well as her daughter Nathalie [phone] Problems: Consultation Date/Type/Reason Admit Date/Time Mar 22, 2017 at 07:26 Date of Consultation: March 30, 2017 Type of Consultation: oncology Reason for Consultation metastatic breast cancer Referring Provider: DEVORAH WINSTON MD Hx of Present Illness 86-year-old female with multiple medical problems who was seen by Dr. Winston as an outpatient due to gradually increasing pelvic mass. An out patient CT scan of the abdomen and pelvis was done and as per report, there was 8 cm bilateral adnexal mass with lymphadenopathy. CA-125 was 269. There is a questionable history of vaginal bleeding which may have bee hemorrhoidal bleeding. Patient was brought into hospital for total abdominal hysterectomy and bilateral salpingo-oophorectomy done on 03/23. Intraoperatively was noted to have a large uterus and surgical path did not reveal cancer in the uterus. However the lymph node dissection revealed 19/33 positive lymph nodes which were consistent with breast primary. Further immunohistochemical stains are pending. Ct Chest/abd and pelvis was done which reveals bilateral pleural effusions, small sub centimeter nodular densities adjacent to the major fissure in the right upper lobe, massively enlarged bilateral inguinal lymph nodes. Nothing obvious is seen in the breasts. Constitutional: requiring IVF, requiring O2 Respiratory: no complaints Cardiovascular: no complaints Gastrointestinal: no complaints Psychological: nl mood/affect Past Medical History hypertension dyslipidemia hypothyroidism Social History Smoking Status: Former smoker Exam/Review of Systems Vital Signs Vitals Vital Signs Date Time Temp Pulse Resp B/P Pulse Ox O2 Delivery O2 Flow Rate FiO2 03/30/17 08:25 78 03/30/17 06:56 98.0 18 117/56 93 03/28/17 09:00 Nasal Cannula 3.0 Intake and Output 03/29/17 03/29/17 03/30/17 15:00 23:00 07:00 Intake Total 1575 ml 1550 ml Output Total 2435 ml 1020 ml Balance -860 ml 530 ml Results Result Diagram: 03/30/17 0715 03/29/17 0722 Results 24 hrs Laboratory Tests Test 03/30/17 07:15 White Blood Count 5.1 Red Blood Count 3.13 L Hemoglobin 9.1 L Hematocrit 28.1 L Mean Corpuscular Volume 89.8 Mean Corpuscular Hemoglobin 29.1 Mean Corpuscular Hemoglobin Concent 32.4 Red Cell Distribution Width 15.1 H Platelet Count 250 Mean Platelet Volume 9.2 Neutrophils % 70.0 Lymphocytes % 19.8 Monocytes % 7.2 Eosinophils % 2.2 Basophils % 0.2 Nucleated Red Blood Cells % 0.0 Neutrophils # 3.6 Lymphocytes # 1.0 Monocytes # 0.4 Eosinophils # 0.1 Basophils # 0.0 Nucleated Red Blood Cells # 0.0 Medications Medications Current Medications Hydromorphone HCl (Dilaudid) 0.5 mg Q1HWA PRN IV PAIN LEVEL 6-10 Last administered on 03/29/17 20:25; Admin Dose 0.5 MG; Start 03/22/17 at 14:00 Famotidine 20 mg 20 mg Q12 IV Last administered on 03/30/17 08:10; Admin Dose 20 MG; Start 03/22/17 at 21:00 Potassium Chloride/Dextrose/ Sod Cl (D5-NS + KCl 20 Meq) 1,000 ml @ 75 mls/hr [id number] IV Last administered on 03/29/17 20:32; Admin Dose 75 MLS/HR; Start at 13:57 Levothyroxine Sodium (Synthroid Iv) 75 mcg DAILY@06 IV Last administered on 03/30 05:50; Admin Dose 75 MCG; Start 03/23/17 at 06:00 Ondansetron HCl (Zofran Inj) 4 mg Q6H PRN IV NAUSEA AND/OR VOMITING; Start at 21:30 Metoclopramide HCl (Reglan) 10 mg Q6 IV Last administered on 03/30/17 05:50; Admin Dose 10 MG; Start 03/25/17 at 12:00 RAZ FRIEND M.D. March 30, 2017 08:53
--- NOTE | 2017-03-30 14:04 | PN ---
Date/Time of Note Date/Time of Note DATE: 03/30/17 TIME: 14:00 Assessment/Plan VTE Prophylaxis VTE Prophylaxis Intervention: SCD's Lines/Catheters IV Catheter Type (from Nrs): Central Line Central line still needed: Yes Urinary Cath still in place: Yes Reason Cath still needed: urinary retention Assessment/Plan Chief Complaint/Hosp Course Assessment/Plan - Pelvic mass with local lymphadenopathy status post total abdominal hysterectomy and bilateral salpingo-oophorectomy and removal of retroperitoneal lymph nodes which were positive for adenocarcinoma with strong suggestion of breast primary per path. Continue to follow-up surgical recommendation. Dr. Martinez is following in surgical consultation. Dr. Figueroa is following in hematology oncology consultation. - Coagulopathy, resolved, s/p FFP transfusion - Anemia of blood loss,s/p packed red blood cells transfusion, stable continue to monitor hemoglobin and hematocrit - Hypertension. Patient is currently normotensive. - Dyslipidemia. Further recommendations based on clinical course. Plan of care discussed with Dr. Mari. Problems: Subjective 24 Hr Interval Summary Free Text/Dictation Patient tolerates full liquid diet well, denies any nausea vomiting. Exam/Review of Systems Vital Signs Vitals Vital Signs Date Time Temp Pulse Resp B/P Pulse Ox O2 Delivery O2 Flow Rate FiO2 03/30/17 12:27 82 03/30/17 11:45 97.9 18 147/66 96 03/28/17 09:00 Nasal Cannula 3.0 Intake and Output 03/29/17 03/29/17 03/30/17 15:00 23:00 07:00 Intake Total 1575 ml 1550 ml Output Total 2435 ml 1020 ml Balance -860 ml 530 ml Exam Constitutional: alert, oriented Psych: no complaints Head: atraumatic, normocephalic Eyes: nl conjunctiva ENMT: nl external ears & nose Neck: non-tender, supple Respiratory: clear to auscultation, normal air movement Cardiovascular: nl pulses, regular rate and rhythm Gastrointestinal: other (Hypoactive bowel sounds, generalized tenderness, status post surgery, left lower quadrant JOSSELYN), soft Musculoskeletal: nl extremities to inspection Extremities: normal pulses Neurological: 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1 Basophils # 0.0 Nucleated Red Blood Cells # 0.0 Sodium Level 136 Potassium Level 3.8 Chloride Level 105 Carbon Dioxide Level 28 Anion Gap 7 L Blood Urea Nitrogen 9 Creatinine 0.88 Glucose Level 98 Calcium Level 7.9 L Medications Medications Current Medications Hydromorphone HCl (Dilaudid) 0.5 mg Q1HWA PRN IV PAIN LEVEL 6-10 Last administered on 03/29/17 20:25; Admin Dose 0.5 MG; Start 03/22/17 at 14:00 Famotidine 20 mg 20 mg Q12 IV Last administered on 03/30/17 08:10; Admin Dose 20 MG; Start 03/22/17 at 21:00 Potassium Chloride/Dextrose/ Sod Cl (D5-NS + KCl 20 Meq) 1,000 ml @ 75 mls/hr [id number] IV Last administered on 03/30/17 10:08; Admin Dose 75 MLS/HR; Start at 13:57 Levothyroxine Sodium (Synthroid Iv) 75 mcg DAILY@06 IV Last administered on 03/30 05:50; Admin Dose 75 MCG; Start 03/23/17 at 06:00 Ondansetron HCl (Zofran Inj) 4 mg Q6H PRN IV NAUSEA AND/OR VOMITING; Start at 21:30 Metoclopramide HCl (Reglan) 10 mg Q6 IV Last administered on 03/30/17 12:47; Admin Dose 10 MG; Start 03/25/17 at 12:00 LESLIE HELLER March 30, 2017 14:03
--- NOTE | 2017-03-30 16:16 | RADRPT ---
PROCEDURE: Bilateral breast ultrasound. CLINICAL INDICATION: History of metastatic breast cancer. TECHNIQUE: High-resolution sonography of both breasts was performed in the axial and sagittal plan es. COMPARISON: No prior study is available for comparison. FINDINGS: There is no cystic or solid mass on either side. Normal breast parenchyma is present bilaterally. IMPRESSION: 1. Normal bilateral breast ultrasound. 2. Any further management regarding any breast symptoms should be based upon clinical grounds. RPTAT: QQ .Naif Clinton MD, MD Date Time Electronically viewed and signed by .Naif Clinton MD, MD on 03/30/2017 16:15 .R/
--- NOTE | 2017-03-30 18:12 | RADRPT ---
PROCEDURE: Whole body bone scan study CLINICAL INDICATION: 87 -year-old patient with breast cancer, for evaluation for skeletal metastas es. TECHNIQUE: Following the intravenous injection of 25.6 mCi of Tc-99m MDP, whole body anterior and posterior planar images were obtained along with spot views of the chest, abdomen and pelvis. COMPARISON: No prior bone scans are available for comparison. CT scan of the abdomen and pelvis da marilynn March 29, 2017. FINDINGS: Linear area of intensely increased activity seen at approximately T7 vertebra. Mildly increased uptake is seen in the lower lumbar spine, at approximately L5 level, to the left of the midline. Otherwise, slightly nonhomogeneous distribution of radionuclide is seen throughout the spine. No other definite abnormal areas of increased activity or asymmetries are visualized in the study an d distribution of radionuclide is homogeneous in the skull, spine, rib cages, sternum, pelvis and vi sualized portions of the upper and lower extremities. Of incidental note, there is no evidence of mass abnormalities of the kidneys. IMPRESSION: 1. Likely compression / degenerative changes at approximately T7 vertebra; please correlate with x- ray. 2. Likely degenerative changes of the remainder of the spine most prominent at approximately L5-S1 level to the left of the midline. 3. No other skeletal abnormalities and no definite scintigraphic pattern to suggest the presence of skeletal metastases. RPTAT: HH .Malka Arredondo MD, Date Time Electronically viewed and signed by .Malka Arredondo MD, on 03/30/2017 18:11 .L/
[2017-03-30] MEDS: HYDROmorphONE 1 MG/ML SYG IV PRN (18:47)
[2017-03-31] VITALS (9 sets, daily range): BP systolic 115–134; BP diastolic 55–67; PULSE 72–78; RESP 16–18
[2017-03-31] MEDS: D5-NS + KCL 20 MEQ 1,000 ML IV SCH ×3 (01:42→22:38)
[2017-03-31] MEDS: LEVOTHYROXINE 100 MCG VIAL IV SCH (05:08)
[2017-03-31] MEDS: METOCLOPRAMIDE 10 MG INJ IV SCH ×4 (05:08→23:45)
[2017-03-31 08:08] LABS: ADD SCAN DIFF NO
[2017-03-31 08:12] LABS: BASOPHILS % 0.2 % (0.0-2.0); EOSINOPHILS # 0.1 10^3/ul (0.0-0.5); HEMATOCRIT 28.4 % (37.0-47.0); LYMPHOCYTES # 0.9 10^3/ul (0.8-2.9); LYMPHOCYTES % 19.9 % (15.0-51.0); MEAN CORPUSCULAR HEMOGLOBIN 28.8 pg (29.0-33.0); MEAN CORPUSCULAR HGB CONC 31.7 g/dl (32.0-37.0); MEAN PLATELET VOLUME 9.3 fl (7.4-10.4); MONOCYTE # 0.4 10^3/ul (0.3-0.9); MONOCYTES % 8.2 % (0.0-11.0); PLATELET COUNT 275 10^3/UL (140-415); RED BLOOD COUNT 3.12 10^6/ul (4.20-5.40); RED CELL DISTRIBUTION WIDTH 14.9 % (11.5-14.5); WHITE BLOOD COUNT 4.4 10^3/ul (4.8-10.8)
[2017-03-31 08:53] LABS: CREATININE 0.86 mg/dl (0.44-1.00); POTASSIUM 4.1 mmol/L (3.5-5.1)
[2017-03-31] MEDS: FAMOTIDINE 20 MG INJ IV SCH ×2 (08:56→21:00)
[2017-03-31] MEDS: HYDROmorphONE 1 MG/ML SYG IV PRN (12:35)
--- NOTE | 2017-03-31 14:09 | PN ---
Date/Time of Note Date/Time of Note DATE: 03/31/17 TIME: 14:08 Assessment/Plan VTE Prophylaxis VTE Prophylaxis Intervention: SCD's Lines/Catheters IV Catheter Type (from Nrs): Central Line Central line still needed: Yes Urinary Cath still in place: Yes Reason Cath still needed: urinary retention Assessment/Plan Chief Complaint/Hosp Course Assessment/Plan - Pelvic mass with local lymphadenopathy status post total abdominal hysterectomy and bilateral salpingo-oophorectomy and removal of retroperitoneal lymph nodes which were positive for adenocarcinoma with strong suggestion of breast primary per path. Continue to follow-up surgical recommendation. Dr. Martinez is following in surgical consultation. Dr. Figueroa is following in hematology oncology consultation. - Coagulopathy, resolved, s/p FFP transfusion - Anemia of blood loss,s/p packed red blood cells transfusion, stable continue to monitor hemoglobin and hematocrit - Hypertension. Patient is currently normotensive. - Dyslipidemia. Further recommendations based on clinical course. Plan of care discussed with Dr. Mari. Problems: Exam/Review of Systems Vital Signs Vitals Vital Signs Date Time Temp Pulse Resp B/P Pulse Ox O2 Delivery O2 Flow Rate FiO2 03/31/17 12:15 78 03/31/17 11:04 98.2 17 127/67 95 03/28/17 09:00 Nasal Cannula 3.0 Intake and Output 03/30/17 03/30/17 03/31/17 15:00 23:00 07:00 Intake Total 600 ml 350 ml Output Total 1010 ml 700 ml Balance -410 ml -350 ml Exam Constitutional: alert, oriented Psych: no complaints Head: atraumatic, normocephalic Eyes: nl conjunctiva ENMT: nl external ears & nose Neck: non-tender, supple Respiratory: clear to auscultation, normal air movement Cardiovascular: nl pulses, regular rate and rhythm Gastrointestinal: other (Hypoactive bowel sounds, generalized tenderness, status post surgery, left lower quadrant JOSSELYN), soft Musculoskeletal: nl extremities to inspection Extremities: normal pulses Neurological: 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 II-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 intact Skin: nl turgor Lymph: nl lymph nodes Results Result Diagram: 03/31/17 0725 03/31/17 07 Results 24 hrs Laboratory Tests Test 03/31/17 07:25 White Blood Count 4.4 L Red Blood Count 3.12 L Hemoglobin 9.0 L Hematocrit 28.4 L Mean Corpuscular Volume 91.0 Mean Corpuscular Hemoglobin 28.8 L Mean Corpuscular Hemoglobin Concent 31.7 L Red Cell Distribution Width 14.9 H Platelet Count 275 Mean Platelet Volume 9.3 Neutrophils % 68.0 Lymphocytes % 19.9 Monocytes % 8.2 Eosinophils % 3.0 Basophils % 0.2 Nucleated Red Blood Cells % 0.0 Neutrophils # 3.0 Lymphocytes # 0.9 Monocytes # 0.4 Eosinophils # 0.1 Basophils # 0.0 Nucleated Red Blood Cells # 0.0 Sodium Level 134 L Potassium Level 4.1 Chloride Level 107 Carbon Dioxide Level 27 Anion Gap 4 L Blood Urea Nitrogen 8 Creatinine 0.86 Glucose Level 102 Calcium Level 8.0 L Medications Medications Current Medications Hydromorphone HCl (Dilaudid) 0.5 mg Q1HWA PRN IV PAIN LEVEL 6-10 Last administered on 03/31/17 12:35; Admin Dose 0.5 MG; Start 03/22/17 at 14:00 Famotidine 20 mg 20 mg Q12 IV Last administered on 03/31/17 08:56; Admin Dose 20 MG; Start 03/22/17 at 21:00 Potassium Chloride/Dextrose/ Sod Cl (D5-NS + KCl 20 Meq) 1,000 ml @ 75 mls/hr [id number] IV Last administered on 03/31/17 01:42; Admin Dose 75 MLS/HR; Start at 13:57 Levothyroxine Sodium (Synthroid Iv) 75 mcg DAILY@06 IV Last administered on 03/31 05:08; Admin Dose 75 MCG; Start 03/23/17 at 06:00 Ondansetron HCl (Zofran Inj) 4 mg Q6H PRN IV NAUSEA AND/OR VOMITING; Start at 21:30 Metoclopramide HCl (Reglan) 10 mg Q6 IV Last administered on 03/31/17 12:34; Admin Dose 10 MG; Start 03/25/17 at 12:00 LESLIE HELLER March 31, 2017 14:09
--- NOTE | 2017-03-31 17:45 | CONS ---
Date/Time of Note Date/Time of Note DATE: 03/31/17 TIME: 17:40 Assessment/Plan Assessment/Plan Chief Complaint/Hosp Course 87 yo female with a large uterus and abdominal / pelvic lymphadenopathy originally though to be secondary to uterine cancer. Pt is now s/p DANN BSO with extensive lymph node dissection. Interestingly the uterus did not show cancer but 19/34 lymph nodes dissected demonstrated adenocarcinoma consistent with breast primary. ER was found to be positive at 80%, VA negative and Her 2 is currently pending. Thus far a CT C/A/P demonstrates massive inguinal LAD as well as pleural effusions but there is no obvious breast lesion on imaging or my physical exam. #[place] of unknown primary - the GATA3 positivity and CK 7 positivity do make this a likely breast cancer -will wait for final path results. Path being sent to Dr. Houston Rose at [facility] for a second opinion. -f/u Her 2 status -if confirmed ER+ Her 2 neg stage IV breast ca, will need to start aromatase inhibitor -bone scan ordered 03/30/17 which demonstrated 1. Likely compression / degenerative changes at approximately T7 vertebra; please correlate with x-ray. 2. Likely degenerative changes of the remainder of the spine most prominent at approximately L5-S1 level to the left of the midline 3. No other skeletal abnormalities and no definite scintigraphic pattern to suggest the presence of skeletal metastases. - normal 03/30/17 bilateral breast ultrasound - CA 27-29 elevated at 236, pending CA 15-3 #s/p abdominal surgery -continue PT and to advance diet -postop care per Dr. Wellington Case was discusser at length with Dr. Wellington as well as her daughter Nathalie [phone] Problems: Consultation Date/Type/Reason Admit Date/Time Mar 22, 2017 at 07:26 Initial Consult Date 03/30/17 Type of Consultation: Oncology Referring Provider: DEVORAH WINSTON MD 24 HR Interval Summary Free Text/Dictation Patient states that she feels well and walked today and sat in the chair. She states that her pelvic pain is nearly resolved except when stretching or moving. She states that her left leg has been larger than her right but decreasing since surgery. Exam/Review of Systems Vital Signs Vitals Vital Signs Date Time Temp Pulse Resp B/P Pulse Ox O2 Delivery O2 Flow Rate FiO2 03/31/17 15:19 97.1 81 17 134/59 94 03/28/17 09:00 Nasal Cannula 3.0 Intake and Output 03/30/17 03/30/17 03/31/17 15:00 23:00 07:00 Intake Total 600 ml 350 ml Output Total 1010 ml 700 ml Balance -410 ml -350 ml Exam Constitutional: alert, oriented Psych: no complaints Head: atraumatic, normocephalic Eyes: nl conjunctiva ENMT: nl external ears & nose Neck: non-tender, supple Respiratory: clear to auscultation, normal air movement Cardiovascular: nl pulses, regular rate and rhythm Gastrointestinal: other (Hypoactive bowel sounds, generalized tenderness, status post surgery, left lower quadrant JOSSELYN), soft Musculoskeletal: nl extremities to inspection Extremities: normal pulses Neurological: 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 OF 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 II-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 intact Skin: nl turgor Lymph: nl lymph nodes Results Result Diagram: 03/31/17 0725 03/31/17 0725 Results 24 hrs Laboratory Tests Test 03/31/17 07:25 White Blood Count 4.4 L Red Blood Count 3.12 L Hemoglobin 9.0 L Hematocrit 28.4 L Mean Corpuscular Volume 91.0 Mean Corpuscular Hemoglobin 28.8 L Mean Corpuscular Hemoglobin Concent 31.7 L Red Cell Distribution Width 14.9 H Platelet Count 275 Mean Platelet Volume 9.3 Neutrophils % 68.0 Lymphocytes % 19.9 Monocytes % 8.2 Eosinophils % 3.0 Basophils % 0.2 Nucleated Red Blood Cells % 0.0 Neutrophils # 3.0 Lymphocytes # 0.9 Monocytes # 0.4 Eosinophils # 0.1 Basophils # 0.0 Nucleated Red Blood Cells # 0.0 Sodium Level 134 L Potassium Level 4.1 Chloride Level 107 Carbon Dioxide Level 27 Anion Gap 4 L Blood Urea Nitrogen 8 Creatinine 0.86 Glucose Level 102 Calcium Level 8.0 L Medications Medications Current Medications Hydromorphone HCl (Dilaudid) 0.5 mg Q1HWA PRN IV PAIN LEVEL 6-10 Last administered on 03/31/17 12:35; Admin Dose 0.5 MG; Start 03/22/17 at 14:00 Famotidine 20 mg 20 mg Q12 IV Last administered on 03/31/17 08:56; Admin Dose 20 MG; Start 03/22/17 at 21:00 Potassium Chloride/Dextrose/ Sod Cl (D5-NS + KCl 20 Meq) 1,000 ml @ 75 mls/hr [id number] IV Last administered on 03/31/17 01:42; Admin Dose 75 MLS/HR; Start at 13:57 Levothyroxine Sodium (Synthroid Iv) 75 mcg DAILY@06 IV Last administered on 03/31 05:08; Admin Dose 75 MCG; Start 03/23/17 at 06:00 Ondansetron HCl (Zofran Inj) 4 mg Q6H PRN IV NAUSEA AND/OR VOMITING; Start at 21:30 Metoclopramide HCl (Reglan) 10 mg Q6 IV Last administered on 03/31/17 12:34; Admin Dose 10 MG; Start 03/25/17 at 12:00 PEG SHRESTHA MD March 31, 2017 17:45
--- NOTE | 2017-03-31 21:45 | PN ---
Date/Time of Note Date/Time of Note DATE: 03/31/17 TIME: 21:39 Assessment/Plan VTE Prophylaxis VTE Prophylaxis Intervention: SCD's Lines/Catheters IV Catheter Type (from Nrs): Central Line Central line still needed: Yes Urinary Cath still in place: Yes Reason Cath still needed: urinary retention Assessment/Plan Chief Complaint/Hosp Course adenoca Problems: Assessment/Plan A- clinically improved P- Discussed all imaging studies in detail and plan per Dr. Claudio and option per sec opinion. Will d/c Past[place] a.m. and adv diet today. Subjective 24 Hr Interval Summary Free Text/Dictation + flatus and small BM. OOB slightly more. Exam/Review of Systems Vital Signs Vitals Vital Signs Date Time Temp Pulse Resp B/P Pulse Ox O2 Delivery O2 Flow Rate FiO2 03/31/17 20:06 97.6 95 18 127/58 95 03/28/17 09:00 Nasal Cannula 3.0 Intake and Output 03/30/17 03/30/17 03/31/17 15:00 23:00 07:00 Intake Total 600 ml 350 ml Output Total 1010 ml 700 ml Balance -410 ml -350 ml Exam Respiratory: clear to auscultation, normal air movement Cardiovascular: nl pulses Gastrointestinal: soft Extremities: No calf tenderness, No clubbing, No cyanosis, No edema, No normal pulses, No other, No palpable cord, No pitting pedal edema, No tenderness Results Result Diagram: 03/31/17 0725 03/31/17 0725 Results 24 hrs Laboratory Tests Test 03/31/17 07:25 White Blood Count 4.4 L Red Blood Count 3.12 L Hemoglobin 9.0 L Hematocrit 28.4 L Mean Corpuscular Volume 91.0 Mean Corpuscular Hemoglobin 28.8 L Mean Corpuscular Hemoglobin Concent 31.7 L Red Cell Distribution Width 14.9 H Platelet Count 275 Mean Platelet Volume 9.3 Neutrophils % 68.0 Lymphocytes % 19.9 Monocytes % 8.2 Eosinophils % 3.0 Basophils % 0.2 Nucleated Red Blood Cells % 0.0 Neutrophils # 3.0 Lymphocytes # 0.9 Monocytes # 0.4 Eosinophils # 0.1 Basophils # 0.0 Nucleated Red Blood Cells # 0.0 Sodium Level 134 L Potassium Level 4.1 Chloride Level 107 Carbon Dioxide Level 27 Anion Gap 4 L Blood Urea Nitrogen 8 Creatinine 0.86 Glucose Level 102 Calcium Level 8.0 L Medications Medications Current Medications Hydromorphone HCl (Dilaudid) 0.5 mg Q1HWA PRN IV PAIN LEVEL 6-10 Last administered on 03/31/17 12:35; Admin Dose 0.5 MG; Start 03/22/17 at 14:00 Famotidine 20 mg 20 mg Q12 IV Last administered on 03/31/17 21:00; Admin Dose 20 MG; Start 03/22/17 at 21:00 Potassium Chloride/Dextrose/ Sod Cl (D5-NS + KCl 20 Meq) 1,000 ml @ 75 mls/hr [id number] IV Last administered on 03/31/17 01:42; Admin Dose 75 MLS/HR; Start at 13:57 Levothyroxine Sodium (Synthroid Iv) 75 mcg DAILY@06 IV Last administered on 03/31 05:08; Admin Dose 75 MCG; Start 03/23/17 at 06:00 Ondansetron HCl (Zofran Inj) 4 mg Q6H PRN IV NAUSEA AND/OR VOMITING; Start at 21:30 Metoclopramide HCl (Reglan) 10 mg Q6 IV Last administered on 03/31/17 18:30; Admin Dose 10 MG; Start 03/25/17 at 12:00 DEVORAH WINSTON MD March 31, 2017 21:45
[2017-04-01 00:58] VITALS: BP 123/58; RESP 18
[2017-04-01] MEDS: HYDROmorphONE 1 MG/ML SYG IV PRN ×2 (01:32→19:55)
[2017-04-01] MEDS: LEVOTHYROXINE 100 MCG VIAL IV SCH (05:48)
[2017-04-01] MEDS: METOCLOPRAMIDE 10 MG INJ IV SCH (05:48)
[2017-04-01] MEDS: FAMOTIDINE 20 MG INJ IV SCH (08:04)
[2017-04-01 08:18] VITALS: BP 120/60; RESP 18
[2017-04-01] MEDS: D5-NS + KCL 20 MEQ 1,000 ML IV SCH (11:02)
[2017-04-01] MEDS ORDERED: ACETAMINOPHEN 500 MG TAB PO PRN (12:30)
[2017-04-01] MEDS ORDERED: METOCLOPRAMIDE 10 MG INJ IV PRN (12:30)
[2017-04-01] MEDS: NYSTATIN 30 GM POWDER BTL TOP SCH ×2 (14:28→20:35)
[2017-04-01] MEDS: FUROSEMIDE 20 MG TAB PO SCH (14:28)
[2017-04-01] MEDS: ENOXAPARIN 40 MG/0.4 ML SYG SC SCH (15:05)
--- NOTE | 2017-04-01 15:17 | PN ---
Date/Time of Note Date/Time of Note DATE: 04/01/17 TIME: 15:14 Assessment/Plan VTE Prophylaxis VTE Prophylaxis Intervention: SCD's Lines/Catheters IV Catheter Type (from Nrs): Central Line Central line still needed: No Urinary Cath still in place: No Assessment/Plan Chief Complaint/Hosp Course Assessment/Plan - Pelvic mass with local lymphadenopathy status post total abdominal hysterectomy and bilateral salpingo-oophorectomy and removal of retroperitoneal lymph nodes which were positive for adenocarcinoma with strong suggestion of breast primary per path. Continue to follow-up surgical recommendation. Dr. Martinez is following in surgical consultation. Dr. Figueroa is following in hematology oncology consultation. - Coagulopathy, resolved, s/p FFP transfusion - Anemia of blood loss,s/p packed red blood cells transfusion, stable continue to monitor hemoglobin and hematocrit - Hypertension. Patient is currently normotensive. - Dyslipidemia. Further recommendations based on clinical course. Plan of care discussed with Dr. Mari. Problems: Subjective 24 Hr Interval Summary Free Text/Dictation Victoriano TABOR'd patient is able to void, tolerates diet well, pain is well controlled , patient is complains of the neck pain, will start patients on Mobic. Exam/Review of Systems Vital Signs Vitals Vital Signs Date Time Temp Pulse Resp B/P Pulse Ox O2 Delivery O2 Flow Rate FiO2 04/01/17 08:18 97.7 76 18 120/60 93 03/28/17 09:00 Nasal Cannula 3.0 Intake and Output 03/31/17 03/31/17 04/01/17 15:00 23:00 07:00 Intake Total 1000 ml 600 ml 960 ml Output Total 0 ml 1000 ml 865 ml Balance 1000 ml -400 ml 95 ml Exam Constitutional: alert, oriented Psych: no complaints Head: atraumatic, normocephalic Eyes: nl conjunctiva ENMT: nl external ears & nose Neck: non-tender, supple Respiratory: clear to auscultation, normal air movement Cardiovascular: nl pulses, regular rate and rhythm Gastrointestinal: other (Hypoactive bowel sounds, generalized tenderness, status post surgery, left lower quadrant JOSSELYN), soft Musculoskeletal: nl extremities to inspection Extremities: normal pulses Neurological: HOME MANAGER II-XII intact Skin: nl turgor Lymph: nl lymph nodes Results Result Diagram: 03/31/17 0725 03/31/17 0725 Medications Medications Current Medications Hydromorphone HCl 0.5 mg 0.5 mg Q1HWA PRN IV PAIN LEVEL 6-10 Last administered on 04/01/17 01:32; Admin Dose 0.5 MG; Start 03/22/17 at 14:00 Potassium Chloride/Dextrose/ Sod Cl (D5-NS + KCl 20 Meq) 1,000 ml @ 75 mls/hr [id number] IV Last administered on 04/01/17 11:02; Admin Dose 75 MLS/HR; Start at 13:57 Ondansetron HCl (Zofran Inj) 4 mg Q6H PRN IV NAUSEA AND/OR VOMITING; Start at 21:30 Metoclopramide HCl (Reglan) 10 mg Q6H PRN IV NAUSEA; Start 04/01/17 at 12:30 Levothyroxine Sodium (Synthroid) 137 mcg DAILY@06 PO ; Start 04/02/17 at 06:00 Atorvastatin Calcium (Lipitor) 10 mg HS PO ; Start 04/01/17 at 21:00 Famotidine (Pepcid) 20 mg QHS PO ; Start 04/01/17 at 21:00 Acetaminophen (Tylenol Tab) 500 mg Q4H PRN PO PAIN AND OR ELEVATED TEMP; Start 04/01/17 at 12:30 Tramadol HCl (Ultram) 50 mg Q6H PRN PO PAIN LEVEL 4-6; Start 04/01/17 at 12:30 Nystatin (Nystatin Powder) 1 applic BID TOP Last administered on 04/01/17 14:28 ; Admin Dose 1 APPLIC; Start 04/01/17 at 13:30 Furosemide (Lasix) 20 mg DAILY PO Last administered on 04/01/17 14:28; Admin Dose 20 MG; Start 04/01/17 at 13:00 Enoxaparin Sodium (Lovenox) 40 mg DAILY SC Last administered on 04/01/17 15:05 ; Admin Dose 40 MG; Start 04/01/17 at 13:00 LESLIE HELLER April 01, 2017 15:17
[2017-04-01] MEDS: MELOXICAM 15 MG TAB PO SCH ×2 (16:00→20:35)
--- NOTE | 2017-04-01 16:05 | RADRPT ---
PROCEDURE: US bilateral lower extremity veins. CLINICAL INDICATION: Bilateral leg pain and swelling. TECHNIQUE: Multiple longitudinal and transverse images of the bilateral lower extremity veins were obtained with more scale and color Doppler imaging. The common femoral vein, femoral vein, and popl iteal vein were evaluated. 2D grayscale measurements with compression sonography, color Doppler, and pulsed Doppler with augmentation. COMPARISON: No prior studies are available for comparison. FINDINGS: The bilateral common femoral, femoral and popliteal veins are normally compressible throughout. Col or flow demonstrates normal filling of the vessels. Normal waveforms are visualized and there is no rmal response to augmentation. IMPRESSION: 1. No evidence of deep vein thrombosis involving either lower extremity. RPTAT: QQ .Naif Clinton MD, MD Date Time Electronically viewed and signed by .Naif Clinton MD, on 04/01/2017 16:05 .R/
--- NOTE | 2017-04-01 17:35 | CONS ---
Date/Time of Note Date/Time of Note DATE: 04/01/17 TIME: 17:34 Assessment/Plan Assessment/Plan Chief Complaint/Hosp Course 87 yo female with a large uterus and abdominal / pelvic lymphadenopathy originally though to be secondary to uterine cancer. Pt is now s/p DANN BSO with extensive lymph node dissection. Interestingly the uterus did not show cancer but 19/34 lymph nodes dissected demonstrated adenocarcinoma consistent with breast primary. ER was found to be positive at 80%, OR negative and Her 2 is currently pending. Thus far a CT C/A/P demonstrates massive inguinal LAD as well as pleural effusions but there is no obvious breast lesion on imaging or my physical exam. #[place] of unknown primary - the GATA3 positivity and CK 7 positivity do make this a likely breast cancer -will wait for final path results. Path being sent to Dr. Houston Rose at [facility] for a second opinion. -f/u Her 2 status -if confirmed ER+ Her 2 neg stage IV breast ca, will need to start aromatase inhibitor -bone scan ordered 03/30/17 which demonstrated 1. Likely compression / degenerative changes at approximately T7 vertebra; please correlate with x-ray. 2. Likely degenerative changes of the remainder of the spine most prominent at approximately L5-S1 level to the left of the midline 3. No other skeletal abnormalities and no definite scintigraphic pattern to suggest the presence of skeletal metastases. - normal 03/30/17 bilateral breast ultrasound - LE dopplers 04/01/17 showed no evidence of deep vein thrombosis involving either lower extremity. - CA 27-29 elevated at 236, CA 15-3 elevated at 92 #s/p abdominal surgery -continue PT and to advance diet -postop care per Dr. Wellington Case was discusser at length with Dr. Wellington as well as her daughter Nathalie [phone] Problems: Consultation Date/Type/Reason Admit Date/Time Mar 22, 2017 at 07:26 Initial Consult Date 03/30/17 Type of Consultation: Oncology Referring Provider: DEVORAH WINSTON MD 24 HR Interval Summary Free Text/Dictation Patient doing well this morning, no complaints. Exam/Review of Systems Vital Signs Vitals Vital Signs Date Time Temp Pulse Resp B/P Pulse Ox O2 Delivery O2 Flow Rate FiO2 04/01/17 08:18 97.7 76 18 120/60 93 03/28/17 09:00 Nasal Cannula 3.0 Intake and Output 03/31/17 03/31/17 04/01/17 15:00 23:00 07:00 Intake Total 1000 ml 600 ml 960 ml Output Total 0 ml 1000 ml 865 ml Balance 1000 ml -400 ml 95 ml Exam Constitutional: alert, oriented Psych: no complaints Head: atraumatic, normocephalic Eyes: nl conjunctiva ENMT: nl external ears & nose Neck: non-tender, supple Respiratory: clear to auscultation, normal air movement Cardiovascular: nl pulses, regular rate and rhythm Gastrointestinal: other (Hypoactive bowel sounds, generalized tenderness, status post surgery, left lower quadrant JOSSELYN), soft Musculoskeletal: nl extremities to inspection Extremities: normal pulses Neurological: SLP II-XII intact Skin: nl turgor Lymph: nl lymph nodes Results Result Diagram: 03/31/17 0725 03/31/17 07 Medications Medications Current Medications Hydromorphone HCl (Dilaudid) 0.5 mg Q1HWA PRN IV PAIN LEVEL 6-10 Last administered on 04/01/17 01:32; Admin Dose 0.5 MG; Start 03/22/17 at 14:00 Ondansetron HCl (Zofran Inj) 4 mg Q6H PRN IV NAUSEA AND/OR VOMITING; Start at 21:30 Metoclopramide HCl (Reglan) 10 mg Q6H PRN IV NAUSEA; Start 04/01/17 at 12:30 Levothyroxine Sodium (Synthroid) 137 mcg DAILY@06 PO ; Start 04/02/17 at 06:00 Atorvastatin Calcium (Lipitor) 10 mg HS PO ; Start 04/01/17 at 21:00 Famotidine (Pepcid) 20 mg QHS PO ; Start 04/01/17 at 21:00 Acetaminophen (Tylenol Tab) 500 mg Q4H PRN PO PAIN AND OR ELEVATED TEMP; Start 04/01/17 at 12:30 Tramadol HCl (Ultram) 50 mg Q6H PRN PO PAIN LEVEL 4-6; Start 04/01/17 at 12:30 Nystatin (Nystatin Powder) 1 applic BID TOP Last administered on 04/01/17 14:28 ; Admin Dose 1 APPLIC; Start 04/01/17 at 13:30 Furosemide (Lasix) 20 mg DAILY PO Last administered on 04/01/17 14:28; Admin Dose 20 MG; Start 04/01/17 at 13:00 Enoxaparin Sodium (Lovenox) 40 mg DAILY SC Last administered on 04/01/17 15:05 ; Admin Dose 40 MG; Start 04/01/17 at 13:00 Meloxicam (Mobic) 15 mg DAILY PO ; Start 04/01/17 at 16:00 TOPEG MD April 01, 2017 17:35
[2017-04-01 19:29] VITALS: BP 130/60; RESP 20
[2017-04-01] MEDS: FAMOTIDINE 20 MG TAB PO SCH (20:35)
[2017-04-01] MEDS: ATORVASTATIN 10 MG TAB PO SCH (20:35)
--- NOTE | 2017-04-01 22:01 | PN ---
Date/Time of Note Date/Time of Note DATE: 04/01/17 TIME: 21:59 Assessment/Plan VTE Prophylaxis VTE Prophylaxis Intervention: SCD's Lines/Catheters IV Catheter Type (from Nrs): Central Line Central line still needed: No Urinary Cath still in place: No Assessment/Plan Chief Complaint/Hosp Course adenoca Problems: Assessment/Plan A- doing well P- adv diet and d/c Jugualr line Subjective 24 Hr Interval Summary Free Text/Dictation + flatus and feels more alert. Voids OK Exam/Review of Systems Vital Signs Vitals Vital Signs Date Time Temp Pulse Resp B/P Pulse Ox O2 Delivery O2 Flow Rate FiO2 04/01/17 19:29 98.7 87 20 130/60 93 03/28/17 09:00 Nasal Cannula 3.0 Intake and Output 03/31/17 03/31/17 04/01/17 15:00 23:00 07:00 Intake Total 1000 ml 600 ml 960 ml Output Total 0 ml 1000 ml 865 ml Balance 1000 ml -400 ml 95 ml Exam Respiratory: clear to auscultation, normal air movement Gastrointestinal: non-tender, soft Extremities: normal pulses Results Result Diagram: 03/31/17 0725 03/31/1725 Medications Medications Current Medications Hydromorphone HCl (Dilaudid) 0.5 mg Q1HWA PRN IV PAIN LEVEL 6-10 Last administered on 04/01/17 19:55; Admin Dose 0.5 MG; Start 03/22/17 at 14:00 Ondansetron HCl (Zofran Inj) 4 mg Q6H PRN IV NAUSEA AND/OR VOMITING; Start at 21:30 Metoclopramide HCl (Reglan) 10 mg Q6H PRN IV NAUSEA; Start 04/01/17 at 12:30 Levothyroxine Sodium (Synthroid) 137 mcg DAILY@06 PO ; Start 04/02/17 at 06:00 Atorvastatin Calcium (Lipitor) 10 mg HS PO Last administered on 04/01/17 20:35 ; Admin Dose 10 MG; Start 04/01/17 at 21:00 Famotidine (Pepcid) 20 mg QHS PO Last administered on 04/01/17 20:35; Admin Dose 20 MG; Start 04/01/17 at 21:00 Acetaminophen (Tylenol Tab) 500 mg Q4H PRN PO PAIN AND OR ELEVATED TEMP; Start 04/01/17 at 12:30 Tramadol HCl (Ultram) 50 mg Q6H PRN PO PAIN LEVEL 4-6; Start 04/01/17 at 12:30 Nystatin (Nystatin Powder) 1 applic BID TOP Last administered on 04/01/17 20:35 ; Admin Dose 1 APPLIC; Start 04/01/17 at 13:30 Furosemide (Lasix) 20 mg DAILY PO Last administered on 04/01/17 14:28; Admin Dose 20 MG; Start 04/01/17 at 13:00 Enoxaparin Sodium (Lovenox) 40 mg DAILY SC Last administered on 04/01/17 15:05 ; Admin Dose 40 MG; Start 04/01/17 at 13:00 Meloxicam (Mobic) 15 mg DAILY PO Last administered on 04/01/17 20:35; Admin Dose 15 MG; Start 04/01/17 at 16:00 DEVORAH WINSTON MD April 01, 2017 22:01
[2017-04-02 05:42] LABS: ADD SCAN DIFF NO
[2017-04-02 05:46] LABS: BASOPHILS % 0.2 % (0.0-2.0); EOSINOPHILS # 0.1 10^3/ul (0.0-0.5); EOSINOPHILS % 1.9 % (0.0-7.0); HEMATOCRIT 30.1 % (37.0-47.0); HEMOGLOBIN 9.6 g/dl (12.0-16.0); LYMPHOCYTES # 1.2 10^3/ul (0.8-2.9); LYMPHOCYTES % 22.8 % (15.0-51.0); MEAN CORPUSCULAR HEMOGLOBIN 28.8 pg (29.0-33.0); MEAN CORPUSCULAR HGB CONC 31.9 g/dl (32.0-37.0); MEAN CORPUSCULAR VOLUME 90.4 fl (82.0-101.0); MONOCYTE # 0.4 10^3/ul (0.3-0.9); MONOCYTES % 7.6 % (0.0-11.0); NEUTROPHIL # 3.4 10^3/ul (1.6-7.5); NEUTROPHILS % 66.9 % (39.0-77.0); PLATELET COUNT 345 10^3/UL (140-415); RED BLOOD COUNT 3.33 10^6/ul (4.20-5.40); RED CELL DISTRIBUTION WIDTH 14.9 % (11.5-14.5); WHITE BLOOD COUNT 5.1 10^3/ul (4.8-10.8)
[2017-04-02] MEDS: LEVOTHYROXINE 137 MCG TAB PO SCH (05:59)
[2017-04-02 06:06] LABS: POTASSIUM 3.5 mmol/L (3.5-5.1)
[2017-04-02 06:08] LABS: CREATININE 0.99 mg/dl (0.44-1.00)
[2017-04-02] MEDS: MELOXICAM 15 MG TAB PO SCH ×2 (09:00→09:29)
[2017-04-02] MEDS: FUROSEMIDE 20 MG TAB PO SCH (09:29)
[2017-04-02] MEDS: NYSTATIN 30 GM POWDER BTL TOP SCH ×2 (09:30→20:21)
[2017-04-02] MEDS: ENOXAPARIN 40 MG/0.4 ML SYG SC SCH (09:33)
--- NOTE | 2017-04-02 10:19 | PN ---
Date/Time of Note Date/Time of Note DATE: 04/02/17 TIME: 10:17 Assessment/Plan VTE Prophylaxis VTE Prophylaxis Intervention: other Lines/Catheters IV Catheter Type (from Nrs): Saline Lock Urinary Cath still in place: No Assessment/Plan Assessment/Plan - Jeramy leg pain- none at present,- DVT negative BLE - Pelvic mass with local lymphadenopathy status post total abdominal hysterectomy and bilateral salpingo-oophorectomy and removal of retroperitoneal lymph nodes which were positive for adenocarcinoma with strong suggestion of breast primary per path. - per Dr. Martinez is following in surgical consultation. - per Dr. Figueroa is following in hematology oncology consultation. - Coagulopathy, resolved, s/p FFP transfusion - Anemia of blood loss,s/p packed red blood cells transfusion, stable continue to monitor hemoglobin and hematocrit - Hypertension. Patient is currently normotensive. - Dyslipidemia. -old Right hip fracture- no acute issues Further recommendations based on clinical course. Plan of care discussed with Dr. Mari. Subjective 24 Hr Interval Summary Free Text/Dictation nad, resting in bed, denies any complaints, feels better, uses bed side commode , walker/with assist to ambulate in room. dw staff- old rt hip fracture patient - no acute issues. Eyes: no complaints ENT: no complaints Respiratory: no complaints Cardiovascular: no complaints Gastrointestinal: no complaints Genitourinary: no complaints Musculoskeletal: no complaints Skin: no complaints Neurologic: no complaints Endocrine: no complaints Exam/Review of Systems Vital Signs Vitals Vital Signs Date Time Temp Pulse Resp B/P Pulse Ox O2 Delivery O2 Flow Rate FiO2 04/01/17 19:29 98.7 87 20 130/60 93 Intake and Output 04/01/17 04/01/17 04/02/17 15:00 23:00 07:00 Intake Total 400 ml 1380 ml 120 ml Output Total 50 ml 750 ml Balance 400 ml 1330 ml -630 ml Exam Constitutional: alert, oriented, well developed Psych: no complaints Eyes: EOMI, nl sclera ENMT: nl external ears & nose Neck: non-tender, other (right neck dressing intact) Respiratory: clear to auscultation Cardiovascular: nl pulses Gastrointestinal: non-tender, other (LLQ- sarah noted, 20 cc fliud removed per staff. Dressing drt, intact), soft Musculoskeletal: nl extremities to inspection Extremities: normal pulses Neurological: nl mental status, nl speech Skin: other Lymph: nontender Results Result Diagram: 04/02/17 0500 04/02/17 0500 Results 24 hrs Laboratory Tests Test 04/02/17 05:00 White Blood Count 5.1 Red Blood Count 3.33 L Hemoglobin 9.6 L Hematocrit 30.1 L Mean Corpuscular Volume 90.4 Mean Corpuscular Hemoglobin 28.8 L Mean Corpuscular Hemoglobin Concent 31.9 L Red Cell Distribution Width 14.9 H Platelet Count 345 # Mean Platelet Volume 9.0 Neutrophils % 66.9 Lymphocytes % 22.8 Monocytes % 7.6 Eosinophils % 1.9 Basophils % 0.2 Nucleated Red Blood Cells % 0.0 Neutrophils # 3.4 Lymphocytes # 1.2 Monocytes # 0.4 Eosinophils # 0.1 Basophils # 0.0 Nucleated Red Blood Cells # 0.0 Sodium Level 135 Potassium Level 3.5 Chloride Level 101 Carbon Dioxide Level 26 Anion Gap 12 # Blood Urea Nitrogen 12 Creatinine 0.99 Glucose Level 95 Calcium Level 8.0 L Medications Medications Current Medications Hydromorphone HCl (Dilaudid) 0.5 mg Q1HWA PRN IV PAIN LEVEL 6-10 Last administered on 04/01/17 19:55; Admin Dose 0.5 MG; Start 03/22/17 at 14:00 Ondansetron HCl (Zofran Inj) 4 mg Q6H PRN IV NAUSEA AND/OR VOMITING; Start at 21:30 Metoclopramide HCl (Reglan) 10 mg Q6H PRN IV NAUSEA; Start 04/01/17 at 12:30 Levothyroxine Sodium (Synthroid) 137 mcg DAILY@06 PO Last administered on 05:59; Admin Dose 137 MCG; Start 04/02/17 at 06:00 Atorvastatin Calcium (Lipitor) 10 mg HS PO Last administered on 04/01/17 20:35 ; Admin Dose 10 MG; Start 04/01/17 at 21:00 Famotidine (Pepcid) 20 mg QHS PO Last administered on 04/01/17 20:35; Admin Dose 20 MG; Start 04/01/17 at 21:00 Acetaminophen (Tylenol Tab) 500 mg Q4H PRN PO PAIN AND OR ELEVATED TEMP; Start 04/01/17 at 12:30 Tramadol HCl (Ultram) 50 mg Q6H PRN PO PAIN LEVEL 4-6; Start 04/01/17 at 12:30 Nystatin (Nystatin Powder) 1 applic BID TOP Last administered on 04/02/17 09:30 ; Admin Dose 1 APPLIC; Start 04/01/17 at 13:30 Furosemide (Lasix) 20 mg DAILY PO Last administered on 04/02/17 09:29; Admin Dose 20 MG; Start 04/01/17 at 13:00 Enoxaparin Sodium (Lovenox) 40 mg DAILY SC Last administered on 04/02/17 09:33 ; Admin Dose 40 MG; Start 04/01/17 at 13:00 Meloxicam (Mobic) 15 mg DAILY PO Last administered on 04/01/17 20:35; Admin Dose 15 MG; Start 04/01/17 at 16:00 TEVIN WILSON April 02, 2017 10:19
[2017-04-02 11:15] VITALS: BP 132/60; RESP 16
--- NOTE | 2017-04-02 16:30 | PN ---
DATE: 04/02/2017 SUBJECTIVE: Ms. Ferreira is an 87-year-old female with pelvic lymphadenopathy. She had DANN and BSO, which did not show any cancer, but 19 out of 34 nodes were positive for adenocarcinoma, pos itive for ER and negative for [place]. Her HER2/mario is pending. She is improving from surgery. PAST HISTORY AND REVIEW OF SYSTEMS: Please see the H and P. PHYSICAL EXAMINATION: GENERAL: Showed a moderately built female who is alert, oriented, cooperative. ENT: Normal. HEART: Normal. LUNGS: Normal. BREASTS: Without any lumps. ABDOMEN: The patient has a surgical scar and a drain. Abdomen is slightly tender. EXTERNAL GENITALIA: Normal. EXTREMITIES: Showed no edema, clubbing or cyanosis. LYMPH NODES: No peripheral lymphadenopathy. BONES/JOINTS: Grossly unremarkable. LABORATORY DATA: Her CBC and BMP were unremarkable except for hemoglobin 9.6 with MCV 90. IMPRESSION: 1. Pelvic lymphadenopathy with ER positive adenocarcinoma, probably from breast primary. Final rep ort pending. 2. 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 PLAN AND DISCUSSION: This patient has ER positive pelvic lymphadenopathy. The other tests are stil l pending. Her ultrasound of the breast showed no evidence of cancer. We will need to make a decis ion after all the pathology reports are available. I do not think we should start her on anastrozol e now. We should increase her ambulation and continue her Lovenox. Dictated By: MANN WILKERSON MD PC/NTS Conf#: [id number] DID#: [id number]
--- NOTE | 2017-04-02 16:41 | PN ---
Date/Time of Note Date/Time of Note DATE: 04/02/17 TIME: 16:37 Assessment/Plan VTE Prophylaxis VTE Prophylaxis Intervention: LMWH Lines/Catheters IV Catheter Type (from Nrs): Saline Lock Urinary Cath still in place: No Assessment/Plan Chief Complaint/Hosp Course adenoca Problems: Subjective 24 Hr Interval Summary Free Text/Dictation Feels notably better. + BM and eats well. Voids OK and more positive. OOB more. Exam/Review of Systems Vital Signs Vitals Vital Signs Date Time Temp Pulse Resp B/P Pulse Ox O2 Delivery O2 Flow Rate FiO2 04/02/17 11:15 98.1 83 16 132/60 95 Intake and Output 04/01/17 04/01/17 04/02/17 15:00 23:00 07:00 Intake Total 400 ml 1380 ml 120 ml Output Total 50 ml 750 ml Balance 400 ml 1330 ml -630 ml Exam Additional Comments Resp- clear CVS- NSR Abd- soft NT and wound clean Ext- NT edema unchgd Results Result Diagram: 04/02/17 0500 04/02/17 0500 Results 24 hrs Laboratory Tests Test 04/02/17 05:00 White Blood Count 5.1 Red Blood Count 3.33 L Hemoglobin 9.6 L Hematocrit 30.1 L Mean Corpuscular Volume 90.4 Mean Corpuscular Hemoglobin 28.8 L Mean Corpuscular Hemoglobin Concent 31.9 L Red Cell Distribution Width 14.9 H Platelet Count 345 # Mean Platelet Volume 9.0 Neutrophils % 66.9 Lymphocytes % 22.8 Monocytes % 7.6 Eosinophils % 1.9 Basophils % 0.2 Nucleated Red Blood Cells % 0.0 Neutrophils # 3.4 Lymphocytes # 1.2 Monocytes # 0.4 Eosinophils # 0.1 Basophils # 0.0 Nucleated Red Blood Cells # 0.0 Sodium Level 135 Potassium Level 3.5 Chloride Level 101 Carbon Dioxide Level 26 Anion Gap 12 # Blood Urea Nitrogen 12 Creatinine 0.99 Glucose Level 95 Calcium Level 8.0 L Medications Medications Current Medications Hydromorphone HCl (Dilaudid) 0.5 mg Q1HWA PRN IV PAIN LEVEL 6-10 Last administered on 04/01/17t 19:55; Admin Dose 0.5 MG; Start 03/22/17 at 14:00 Ondansetron HCl (Zofran Inj) 4 mg Q6H PRN IV NAUSEA AND/OR VOMITING; Start at 21:30 Metoclopramide HCl (Reglan) 10 mg Q6H PRN IV NAUSEA; Start 04/01/17 at 12:30 Levothyroxine Sodium (Synthroid) 137 mcg DAILY@06 PO Last administered on 05:59; Admin Dose 137 MCG; Start 04/02/17 at 06:00 Atorvastatin Calcium (Lipitor) 10 mg HS PO Last administered on 04/01/17 20:35 ; Admin Dose 10 MG; Start 04/01/17 at 21:00 Famotidine (Pepcid) 20 mg QHS PO Last administered on 04/01/17 20:35; Admin Dose 20 MG; Start 04/01/17 at 21:00 Acetaminophen (Tylenol Tab) 500 mg Q4H PRN PO PAIN AND OR ELEVATED TEMP; Start 04/01/17 at 12:30 Tramadol HCl (Ultram) 50 mg Q6H PRN PO PAIN LEVEL 4-6; Start 04/01/17 at 12:30 Nystatin (Nystatin Powder) 1 applic BID TOP Last administered on 04/02/17 09:30 ; Admin Dose 1 APPLIC; Start 04/01/17 at 13:30 Furosemide (Lasix) 20 mg DAILY PO Last administered on 04/02/17 09:29; Admin Dose 20 MG; Start 04/01/17 at 13:00 Enoxaparin Sodium (Lovenox) 40 mg DAILY SC Last administered on 04/02/17 09:33 ; Admin Dose 40 MG; Start 04/01/17 at 13:00 Meloxicam (Mobic) 15 mg DAILY PO Last administered on 04/01/17 20:35; Admin Dose 15 MG; Start 04/01/17 at 16:00 Procedures Procedures A- doing well P- OOB more and discuss with DEVORAH Martinez MD April 02, 2017 16:40
[2017-04-02 19:18] VITALS: BP 135/75; RESP 18
[2017-04-02] MEDS: FAMOTIDINE 20 MG TAB PO SCH (20:21)
[2017-04-02] MEDS: ATORVASTATIN 10 MG TAB PO SCH (20:21)
[2017-04-03] MEDS: LEVOTHYROXINE 137 MCG TAB PO SCH (05:43)
[2017-04-03 05:55] LABS: ADD SCAN DIFF NO
[2017-04-03 05:56] LABS: BASOPHILS % 0.2 % (0.0-2.0); EOSINOPHILS # 0.1 10^3/ul (0.0-0.5); EOSINOPHILS % 2.5 % (0.0-7.0); HEMATOCRIT 29.1 % (37.0-47.0); HEMOGLOBIN 9.4 g/dl (12.0-16.0); LYMPHOCYTES # 1.2 10^3/ul (0.8-2.9); LYMPHOCYTES % 22.8 % (15.0-51.0); MEAN CORPUSCULAR HEMOGLOBIN 28.9 pg (29.0-33.0); MEAN CORPUSCULAR HGB CONC 32.3 g/dl (32.0-37.0); MEAN CORPUSCULAR VOLUME 89.5 fl (82.0-101.0); MONOCYTE # 0.4 10^3/ul (0.3-0.9); MONOCYTES % 7.5 % (0.0-11.0); NEUTROPHIL # 3.5 10^3/ul (1.6-7.5); NEUTROPHILS % 66.4 % (39.0-77.0); PLATELET COUNT 351 10^3/UL (140-415); RED BLOOD COUNT 3.25 10^6/ul (4.20-5.40); RED CELL DISTRIBUTION WIDTH 14.8 % (11.5-14.5); WHITE BLOOD COUNT 5.2 10^3/ul (4.8-10.8)
[2017-04-03 06:44] LABS: ALBUMIN 2.3 g/dl (3.3-4.9); ALBUMIN/GLOBULIN RATIO 0.67; BILIRUBIN,INDIRECT 0.7 mg/dl (0-1.1); BILIRUBIN,TOTAL 0.7 mg/dl (0.2-1.3); CALCIUM 8.2 mg/dl (8.4-10.2); CREATININE 0.91 mg/dl (0.44-1.00); POTASSIUM 3.7 mmol/L (3.5-5.1); TOTAL PROTEIN 5.7 g/dl (6.1-8.1)
[2017-04-03 07:39] VITALS: BP 124/60; RESP 16
[2017-04-03] MEDS: MELOXICAM 15 MG TAB PO SCH (08:54)
[2017-04-03] MEDS: FUROSEMIDE 20 MG TAB PO SCH (08:55)
[2017-04-03] MEDS: ENOXAPARIN 40 MG/0.4 ML SYG SC SCH (09:00)
[2017-04-03] MEDS: NYSTATIN 30 GM POWDER BTL TOP SCH ×2 (09:00→20:38)
--- NOTE | 2017-04-03 12:37 | PN ---
Date/Time of Note Date/Time of Note DATE: 04/03/17 TIME: 12:32 Assessment/Plan VTE Prophylaxis VTE Prophylaxis Intervention: other Lines/Catheters IV Catheter Type (from Nrs): Saline Lock Urinary Cath still in place: No Assessment/Plan Assessment/Plan - Jeramy leg pain- none at present,- DVT negative BLE - Pelvic mass with local lymphadenopathy status post total abdominal hysterectomy and bilateral salpingo-oophorectomy and removal of retroperitoneal lymph nodes which were positive for adenocarcinoma with strong suggestion of breast primary per path. - per Dr. Martinez is following in surgical consultation. - per Dr. Figueroa is following in hematology oncology consultation. - Coagulopathy, resolved, s/p FFP transfusion - Anemia of blood loss,s/p packed red blood cells transfusion, stable continue to monitor hemoglobin and hematocrit - Hypertension. Patient is currently normotensive. - Dyslipidemia. -old Right hip fracture- no acute issues Acute rehab evaluation and dc planning for dc home with home health vs SNF. Further recommendations based on clinical course. Plan of care discussed with Dr. Mari. Subjective 24 Hr Interval Summary Free Text/Dictation Acute rehab evaluation and dc planning for dc home with home health vs SNF nad, resting in bed, denies any complaints, feels better, uses bed side commode , walker/with assist to ambulate in room. dw staff- old rt hip fracture patient - no acute issues. Eyes: no complaints ENT: no complaints Respiratory: no complaints Cardiovascular: no complaints Gastrointestinal: other (PAIN AT SURGERY SITE AT TIMES.) Genitourinary: no complaints Musculoskeletal: no complaints Skin: no complaints Neurologic: no complaints Endocrine: no complaints Lymphatic: no complaints Psychological: nl mood/affect Immunologic: no complaints Exam/Review of Systems Vital Signs Vitals Vital Signs Date Time Temp Pulse Resp B/P Pulse Ox O2 Delivery O2 Flow Rate FiO2 04/03/17 07:39 98.3 73 16 124/60 94 Intake and Output 04/02/17 04/02/17 04/03/17 15:00 23:00 07:00 Intake Total 2110 ml 300 ml Output Total 2330 ml 10 ml Balance -220 ml 290 ml Exam Constitutional: alert, well developed Psych: nl mood/affect Eyes: PERRL Neck: non-tender Respiratory: clear to auscultation Cardiovascular: nl pulses Gastrointestinal: non-tender, other (abdominal DDI), soft Musculoskeletal: nl extremities to inspection Extremities: normal pulses Neurological: nl mental status Skin: other Results Result Diagram: 04/03/17 0520 04/03/17 0520 Results 24 hrs Laboratory Tests Test 04/03/17 05:20 White Blood Count 5.2 Red Blood Count 3.25 L Hemoglobin 9.4 L Hematocrit 29.1 L Mean Corpuscular Volume 89.5 Mean Corpuscular Hemoglobin 28.9 L Mean Corpuscular Hemoglobin Concent 32.3 Red Cell Distribution Width 14.8 H Platelet Count 351 Mean Platelet Volume 9.0 Neutrophils % 66.4 Lymphocytes % 22.8 Monocytes % 7.5 Eosinophils % 2.5 Basophils % 0.2 Nucleated Red Blood Cells % 0.0 Neutrophils # 3.5 Lymphocytes # 1.2 Monocytes # 0.4 Eosinophils # 0.1 Basophils # 0.0 Nucleated Red Blood Cells # 0.0 Sodium Level 135 Potassium Level 3.7 Chloride Level 107 Carbon Dioxide Level 26 Anion Gap 6 L Blood Urea Nitrogen 11 Creatinine 0.91 Glucose Level 94 Calcium Level 8.2 L Total Bilirubin 0.7 Direct Bilirubin 0.00 Indirect Bilirubin 0.7 Aspartate Amino Transf (AST/SGOT) 19 Alanine Aminotransferase (ALT/SGPT) 28 Alkaline Phosphatase 129 H Total Protein 5.7 L Albumin 2.3 L Globulin 3.40 H Albumin/Globulin Ratio 0.67 Medications Medications Current Medications Hydromorphone HCl (Dilaudid) 0.5 mg Q1HWA PRN IV PAIN LEVEL 6-10 Last administered on 04/01/17 19:55; Admin Dose 0.5 MG; Start 03/22/17 at 14:00 Ondansetron HCl (Zofran Inj) 4 mg Q6H PRN IV NAUSEA AND/OR VOMITING; Start at 21:30 Metoclopramide HCl (Reglan) 10 mg Q6H PRN IV NAUSEA; Start 04/01/17 at 12:30 Levothyroxine Sodium (Synthroid) 137 mcg DAILY@06 PO Last administered on 05:43; Admin Dose 137 MCG; Start 04/02/17 at 06:00 Atorvastatin Calcium (Lipitor) 10 mg HS PO Last administered on 04/02/17 20:21 ; Admin Dose 10 MG; Start 04/01/17 at 21:00 Famotidine (Pepcid) 20 mg QHS PO Last administered on 04/02/17 20:21; Admin Dose 20 MG; Start 04/01/17 at 21:00 Acetaminophen (Tylenol Tab) 500 mg Q4H PRN PO PAIN AND OR ELEVATED TEMP; Start 04/01/17 at 12:30 Tramadol HCl (Ultram) 50 mg Q6H PRN PO PAIN LEVEL 4-6; Start 04/01/17 at 12:30 Nystatin (Nystatin Powder) 1 applic BID TOP Last administered on 04/03/17 09:00 ; Admin Dose 1 APPLIC; Start 04/01/17 at 13:30 Furosemide (Lasix) 20 mg DAILY PO Last administered on 04/03/17 08:55; Admin Dose 20 MG; Start 04/01/17 at 13:00 Enoxaparin Sodium (Lovenox) 40 mg DAILY SC Last administered on 04/03/17 09:00 ; Admin Dose 40 MG; Start 04/01/17 at 13:00 Meloxicam (Mobic) 15 mg DAILY PO Last administered on 04/03/17 08:54; Admin Dose 15 MG; Start 04/01/17 at 16:00 TEVIN WILSON April 03, 2017 12:36
[2017-04-03 19:57] VITALS: BP 123/60; RESP 18
[2017-04-03] MEDS: FAMOTIDINE 20 MG TAB PO SCH (20:35)
[2017-04-03] MEDS: ATORVASTATIN 10 MG TAB PO SCH (20:35)
[2017-04-03] MEDS: traMADol 50 MG TAB PO PRN (20:36)
[2017-04-04 05:27] LABS: ADD SCAN DIFF NO
[2017-04-04 06:01] LABS: BASOPHILS % 0.2 % (0.0-2.0); EOSINOPHILS # 0.1 10^3/ul (0.0-0.5); EOSINOPHILS % 2.8 % (0.0-7.0); HEMATOCRIT 29.1 % (37.0-47.0); HEMOGLOBIN 9.2 g/dl (12.0-16.0); LYMPHOCYTES # 1.3 10^3/ul (0.8-2.9); LYMPHOCYTES % 26.6 % (15.0-51.0); MEAN CORPUSCULAR HEMOGLOBIN 28.7 pg (29.0-33.0); MEAN CORPUSCULAR HGB CONC 31.6 g/dl (32.0-37.0); MEAN CORPUSCULAR VOLUME 90.7 fl (82.0-101.0); MONOCYTE # 0.4 10^3/ul (0.3-0.9); MONOCYTES % 8.3 % (0.0-11.0); NEUTROPHILS % 61.5 % (39.0-77.0); PLATELET COUNT 356 10^3/UL (140-415); RED BLOOD COUNT 3.21 10^6/ul (4.20-5.40); RED CELL DISTRIBUTION WIDTH 14.7 % (11.5-14.5); WHITE BLOOD COUNT 4.9 10^3/ul (4.8-10.8)
[2017-04-04 06:04] LABS: CALCIUM 8.1 mg/dl (8.4-10.2); CREATININE 0.95 mg/dl (0.44-1.00); POTASSIUM 4.4 mmol/L (3.5-5.1)
[2017-04-04] MEDS: LEVOTHYROXINE 137 MCG TAB PO SCH (06:27)
[2017-04-04 07:54] VITALS: BP 122/60; RESP 20
[2017-04-04] MEDS: MELOXICAM 15 MG TAB PO SCH (08:45)
[2017-04-04] MEDS: FUROSEMIDE 20 MG TAB PO SCH (08:46)
[2017-04-04] MEDS: NYSTATIN 30 GM POWDER BTL TOP SCH ×2 (08:54→20:58)
[2017-04-04] MEDS: ENOXAPARIN 40 MG/0.4 ML SYG SC SCH (08:54)
--- NOTE | 2017-04-04 12:23 | CONS ---
Date/Time of Note Date/Time of Note DATE: 04/04/17 TIME: 12:20 Assessment/Plan Assessment/Plan Chief Complaint/Hosp Course 87 yo female with a large uterus and abdominal / pelvic lymphadenopathy originally though to be secondary to uterine cancer. Pt is now s/p DANN BSO with extensive lymph node dissection. Interestingly the uterus did not show cancer but 19/34 lymph nodes dissected demonstrated adenocarcinoma consistent with breast primary. ER was found to be positive at 80%, KS negative and Her 2 is currently pending. Thus far a CT C/A/P demonstrates massive inguinal LAD as well as pleural effusions but there is no obvious breast lesion on imaging or my physical exam. #[place] of unknown primary - the GATA3 positivity and CK 7 positivity do make this a likely breast cancer -will wait for final path results. Path being sent to Dr. Houston Rose at [facility] [place] for a second opinion. sent last tuesday -f/u Her 2 status -if confirmed ER+ Her 2 neg stage IV breast ca, will need to start aromatase inhibitor -bone scan ordered 03/30/17 which demonstrated 1. Likely compression / degenerative changes at approximately T7 vertebra; please correlate with x-ray. 2. Likely degenerative changes of the remainder of the spine most prominent at approximately L5-S1 level to the left of the midline 3. No other skeletal abnormalities and no definite scintigraphic pattern to suggest the presence of skeletal metastases. - normal 03/30/17 bilateral breast ultrasound - LE dopplers 04/01/17 showed no evidence of deep vein thrombosis involving either lower extremity. - CA 27-29 elevated at 236, CA 15-3 elevated at 92 #s/p abdominal surgery -continue PT and to advance diet -postop care per Dr. Wellington Case was discusser at length with Dr. 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 patient is tolerating her diet and continues to work with physical therapy. no pain Exam/Review of Systems Vital Signs Vitals Vital Signs Date Time Temp Pulse Resp B/P Pulse Ox O2 Delivery O2 Flow Rate FiO2 5/8/17 07:54 97.6 69 20 122/60 98 Intake and Output 04/03/17 04/03/17 04/04/17 15:00 23:00 07:00 Intake Total 480 ml 260 ml Output Total 30 ml 620 ml Balance 450 ml -360 ml Exam Constitutional: alert, oriented Psych: no complaints Head: atraumatic, normocephalic ENMT: nl external ears & nose Neck: non-tender, supple Respiratory: clear to auscultation, normal air movement Cardiovascular: regular rate and rhythm Gastrointestinal: other (JOSSELYN drain in place) Musculoskeletal: nl extremities to inspection, nl gait and stance Results Result Diagram: 04/04/17 0510 04/04/17 0510 Results 24 hrs Laboratory Tests Test 04/04/17 05:10 White Blood Count 4.9 Red Blood Count 3.21 L Hemoglobin 9.2 L Hematocrit 29.1 L Mean Corpuscular Volume 90.7 Mean Corpuscular Hemoglobin 28.7 L Mean Corpuscular Hemoglobin Concent 31.6 L Red Cell Distribution Width 14.7 H Platelet Count 356 Mean Platelet Volume 9.0 Neutrophils % 61.5 Lymphocytes % 26.6 Monocytes % 8.3 Eosinophils % 2.8 Basophils % 0.2 Nucleated Red Blood Cells % 0.0 Neutrophils # 3.0 Lymphocytes # 1.3 Monocytes # 0.4 Eosinophils # 0.1 Basophils # 0.0 Nucleated Red Blood Cells # 0.0 Sodium Level 136 Potassium Level 4.4 Chloride Level 107 Carbon Dioxide Level 28 Anion Gap 5 L Blood Urea Nitrogen 12 Creatinine 0.95 Glucose Level 97 Calcium Level 8.1 L Medications Medications Current Medications Hydromorphone HCl (Dilaudid) 0.5 mg Q1HWA PRN IV PAIN LEVEL 6-10 Last administered on 04/01/17 19:55; Admin Dose 0.5 MG; Start 03/22/17 at 14:00 Ondansetron HCl (Zofran Inj) 4 mg Q6H PRN IV NAUSEA AND/OR VOMITING; Start at 21:30 Metoclopramide HCl (Reglan) 10 mg Q6H PRN IV NAUSEA; Start 04/01/17 at 12:30 Levothyroxine Sodium (Synthroid) 137 mcg DAILY@06 PO Last administered on 06:27; Admin Dose 137 MCG; Start 04/02/17 at 06:00 Atorvastatin Calcium (Lipitor) 10 mg HS PO Last administered on 04/03/17 20:35 ; Admin Dose 10 MG; Start 04/01/17 at 21:00 Famotidine (Pepcid) 20 mg QHS PO Last administered on 04/03/17 20:35; Admin Dose 20 MG; Start 04/01/17 at 21:00 Acetaminophen (Tylenol Tab) 500 mg Q4H PRN PO PAIN AND OR ELEVATED TEMP; Start 04/01/17 at 12:30 Tramadol HCl (Ultram) 50 mg Q6H PRN PO PAIN LEVEL 4-6 Last administered on 20:36; Admin Dose 50 MG; Start 04/01/17 at 12:30 Nystatin (Nystatin Powder) 1 applic BID TOP Last administered on 04/04/17 08:54 ; Admin Dose 1 APPLIC; Start 04/01/17 at 13:30 Furosemide (Lasix) 20 mg DAILY PO Last administered on 04/04/17 08:46; Admin Dose 20 MG; Start 04/01/17 at 13:00 Enoxaparin Sodium (Lovenox) 40 mg DAILY SC Last administered on 04/04/17 08:54 ; Admin Dose 40 MG; Start 04/01/17 at 13:00 Meloxicam (Mobic) 15 mg DAILY PO Last administered on 04/04/17 08:45; Admin Dose 15 MG; Start 04/01/17 at 16:00 RAZ FRIEND M.D. April 04, 2017 12:22
--- NOTE | 2017-04-04 18:29 | PN ---
Date/Time of Note Date/Time of Note DATE: 04/04/17 TIME: 18:27 Assessment/Plan VTE Prophylaxis VTE Prophylaxis Intervention: SCD's Lines/Catheters IV C[facility]ter Type (from [facility] Saline Lock Urinary Cath still in place: No Assessment/Plan Chief Complaint/Hosp Course Assessment/Plan - Pelvic mass with local lymphadenopathy status post total abdominal hysterectomy and bilateral salpingo-oophorectomy and removal of retroperitoneal lymph nodes which were positive for adenocarcinoma with strong suggestion of breast primary per path. Continue to follow-up surgical recommendation. Dr. Martinez is following in surgical consultation. Dr. Figueroa is following in hematology oncology consultation. - Coagulopathy, resolved, s/p FFP transfusion - Anemia of blood loss,s/p packed red blood cells transfusion, stable continue to monitor hemoglobin and hematocrit - Hypertension. Patient is currently normotensive. - Dyslipidemia. Pending acute rehab eval Further recommendations based on clinical course. Plan of care discussed with Dr. Mari. Problems: Subjective 24 Hr Interval Summary Free Text/Dictation Patient able to void status post [place] catheter DC'd, denies any nausea vomiting , patient stated that her neck pain resolved after removal of a right IJ central line. Exam/Review of Systems Vital Signs Vitals Vital Signs Date Time Temp Pulse Resp B/P Pulse Ox O2 Delivery O2 Flow Rate FiO2 04/04/17 07:54 97.6 69 20 122/60 98 Intake and Output 04/03/17 04/03/17 04/04/17 15:00 23:00 07:00 Intake Total 480 ml 260 ml Output Total 30 ml 620 ml Balance 450 ml -360 ml Exam Constitutional: alert, oriented Psych: no complaints Head: atraumatic, normocephalic Eyes: nl conjunctiva ENMT: nl external ears & nose Neck: non-tender, supple Respiratory: clear to auscultation, normal air movement Cardiovascular: nl pulses, regular rate and rhythm Gastrointestinal: other (active bowel sounds, status post surgery, soft Musculoskeletal: nl extremities to inspection Extremities: normal pulses Neurological: 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 intact Skin: nl turgor Lymph: nl lymph nodes Results Result Diagram: 04/04/17 0510 04/04/17 0510 Results 24 hrs Laboratory Tests Test 04/04/17 05:10 White Blood Count 4.9 Red Blood Count 3.21 L Hemoglobin 9.2 L Hematocrit 29.1 L Mean Corpuscular Volume 90.7 Mean Corpuscular Hemoglobin 28.7 L Mean Corpuscular Hemoglobin Concent 31.6 L Red Cell Distribution Width 14.7 H Platelet Count 356 Mean Platelet Volume 9.0 Neutrophils % 61.5 Lymphocytes % 26.6 Monocytes % 8.3 Eosinophils % 2.8 Basophils % 0.2 Nucleated Red Blood Cells % 0.0 Neutrophils # 3.0 Lymphocytes # 1.3 Monocytes # 0.4 Eosinophils # 0.1 Basophils # 0.0 Nucleated Red Blood Cells # 0.0 Sodium Level 136 Potassium Level 4.4 Chloride Level 107 Carbon Dioxide Level 28 Anion Gap 5 L Blood Urea Nitrogen 12 Creatinine 0.95 Glucose Level 97 Calcium Level 8.1 L Medications Medications Current Medications Hydromorphone HCl (Dilaudid) 0.5 mg Q1HWA PRN IV PAIN LEVEL 6-10 Last administered on 04/01/17 19:55; Admin Dose 0.5 MG; Start 03/22/17 at 14:00 Ondansetron HCl (Zofran Inj) 4 mg Q6H PRN IV NAUSEA AND/OR VOMITING; Start at 21:30 Metoclopramide HCl (Reglan) 10 mg Q6H PRN IV NAUSEA; Start 04/01/17 at 12:30 Levothyroxine Sodium (Synthroid) 137 mcg DAILY@06 PO Last administered on 06:27; Admin Dose 137 MCG; Start 04/02/17 at 06:00 Atorvastatin Calcium (Lipitor) 10 mg HS PO Last administered on 04/03/17 20:35 ; Admin Dose 10 MG; Start 04/01/17 at 21:00 Famotidine (Pepcid) 20 mg QHS PO Last administered on 04/03/17 20:35; Admin Dose 20 MG; Start 04/01/17 at 21:00 Acetaminophen (Tylenol Tab) 500 mg Q4H PRN PO PAIN AND OR ELEVATED TEMP; Start 04/01/17 at 12:30 Tramadol HCl (Ultram) 50 mg Q6H PRN PO PAIN LEVEL 4-6 Last administered on 20:36; Admin Dose 50 MG; Start 04/01/17 at 12:30 Nystatin (Nystatin Powder) 1 applic BID TOP Last administered on 04/04/17 08:54 ; Admin Dose 1 APPLIC; Start 04/01/17 at 13:30 Furosemide (Lasix) 20 mg DAILY PO Last administered on 04/04/17 08:46; Admin Dose 20 MG; Start 04/01/17 at 13:00 Enoxaparin Sodium (Lovenox) 40 mg DAILY SC Last administered on 04/04/17 08:54 ; Admin Dose 40 MG; Start 04/01/17 at 13:00 Meloxicam (Mobic) 15 mg DAILY PO Last administered on 04/04/17 08:45; Admin Dose 15 MG; Start 04/01/17 at 16:00 LESLIE HELLER April 04, 2017 18:28
[2017-04-04 19:12] VITALS: BP 127/58; RESP 18
[2017-04-04] MEDS: FAMOTIDINE 20 MG TAB PO SCH (20:57)
[2017-04-04] MEDS: ATORVASTATIN 10 MG TAB PO SCH (20:57)
[2017-04-04] MEDS: traMADol 50 MG TAB PO PRN (23:06)
[2017-04-05] MEDS: LEVOTHYROXINE 137 MCG TAB PO SCH (06:01)
[2017-04-05 07:47] VITALS: BP 108/56; RESP 18
[2017-04-05] MEDS: ENOXAPARIN 40 MG/0.4 ML SYG SC SCH (09:05)
[2017-04-05] MEDS: MELOXICAM 15 MG TAB PO SCH (09:07)
[2017-04-05] MEDS: FUROSEMIDE 20 MG TAB PO SCH (09:08)
[2017-04-05] MEDS: NYSTATIN 30 GM POWDER BTL TOP SCH ×2 (09:10→20:46)
--- NOTE | 2017-04-05 12:48 | CONS ---
Date/Time of Note Date/Time of Note DATE: 04/05/17 TIME: 12:46 Assessment/Plan Assessment/Plan Chief Complaint/Hosp Course 87 yo female with a large uterus and abdominal / pelvic lymphadenopathy originally though to be secondary to uterine cancer. Pt is now s/p DANN BSO with extensive lymph node dissection. Interestingly the uterus did not show cancer but 19/34 lymph nodes dissected demonstrated adenocarcinoma consistent with breast primary. ER was found to be positive at 80%, [place] negative and Her 2 is currently pending. Thus far a CT C/A/P demonstrates massive inguinal LAD as well as pleural effusions but there is no obvious breast lesion on imaging or my physical exam. #[place] of unknown primary - the GATA3 positivity and CK 7 positivity do make this a likely breast cancer -will wait for final path results. Path being sent to Dr. Houston Rose at [facility] for a second opinion. sent last tuesday -f/u Her 2 status -if confirmed ER+ Her 2 neg stage IV breast ca, will need to start aromatase inhibitor -bone scan ordered 03/30/17 which demonstrated 1. Likely compression / degenerative changes at approximately T7 vertebra; please correlate with x-ray. 2. Likely degenerative changes of the remainder of the spine most prominent at approximately L5-S1 level to the left of the midline 3. No other skeletal abnormalities and no definite scintigraphic pattern to suggest the presence of skeletal metastases. - normal 03/30/17 bilateral breast ultrasound - LE dopplers 04/01/17 showed no evidence of deep vein thrombosis involving either lower extremity. - CA 27-29 elevated at 236, CA 15-3 elevated at 92 #s/p abdominal surgery -continue PT and to advance diet -postop care per Dr. Wellington Case was discusser at length with Dr. Wellington as well as her daughter Nathalie [phone] Problems: Consultation Date/Type/Reason Admit Date/Time Mar 22, 2017 at 07:26 Initial Consult Date 03/30/17 Type of Consultation: Oncology Reason for Consultation adenoca of unknown primary Referring Provider: DEVORAH WINSTON MD 24 HR Interval Summary Free Text/Dictation pt tolerating her diet and ambulating Exam/Review of Systems Vital Signs Vitals Vital Signs Date Time Temp Pulse Resp B/P Pulse Ox O2 Delivery O2 Flow Rate FiO2 04/05/17 07:47 97.6 67 18 108/56 95 Intake and Output 04/04/17 04/04/17 04/05/17 15:00 23:00 07:00 Intake Total 1080 ml 300 ml Output Total 1470 ml 20 ml Balance -390 ml 280 ml Exam Constitutional: alert, oriented Psych: nl mood/affect, no complaints Head: normocephalic Eyes: nl conjunctiva ENMT: nl external ears & nose Neck: non-tender, supple Respiratory: clear to auscultation, normal air movement Cardiovascular: nl pulses, regular rate and rhythm Gastrointestinal: soft, surgical scars Musculoskeletal: nl extremities to inspection Results Result Diagram: 04/04/1750904/04/17 05 Medications Medications Current Medications Hydromorphone HCl (Dilaudid) 0.5 mg Q1HWA PRN IV PAIN LEVEL 6-10 Last administered on 04/01/17 19:55; Admin Dose 0.5 MG; Start 03/22/17 at 14:00 Ondansetron HCl (Zofran Inj) 4 mg Q6H PRN IV NAUSEA AND/OR VOMITING; Start at 21:30 Metoclopramide HCl (Reglan) 10 mg Q6H PRN IV NAUSEA; Start 04/01/17 at 12:30 Levothyroxine Sodium (Synthroid) 137 mcg DAILY@06 PO Last administered on 06:01; Admin Dose 137 MCG; Start 04/02/17 at 06:00 Atorvastatin Calcium (Lipitor) 10 mg HS PO Last administered on 04/04/17 20:57 ; Admin Dose 10 MG; Start 04/01/17 at 21:00 Famotidine (Pepcid) 20 mg QHS PO Last administered on 04/04/17 20:57; Admin Dose 20 MG; Start 04/01/17 at 21:00 Acetaminophen (Tylenol Tab) 500 mg Q4H PRN PO PAIN AND OR ELEVATED TEMP; Start 04/01/17 at 12:30 Tramadol HCl (Ultram) 50 mg Q6H PRN PO PAIN LEVEL 4-6 Last administered on 23:06; Admin Dose 50 MG; Start 04/01/17 at 12:30 Nystatin (Nystatin Powder) 1 applic BID TOP Last administered on 04/05/17 09:10 ; Admin Dose 1 APPLIC; Start 04/01/17 at 13:30 Furosemide (Lasix) 20 mg DAILY PO Last administered on 04/05/17 09:08; Admin Dose 20 MG; Start 04/01/17 at 13:00 Enoxaparin Sodium (Lovenox) 40 mg DAILY SC Last administered on 04/05/17 09:05 ; Admin Dose 40 MG; Start 04/01/17 at 13:00 Meloxicam (Mobic) 15 mg DAILY PO Last administered on 04/05/17 09:07; Admin Dose 15 MG; Start 04/01/17 at 16:00 RAZ FRIEND M.D. April 05, 2017 12:48
--- NOTE | 2017-04-05 16:43 | PN ---
Date/Time of Note Date/Time of Note DATE: 04/05/17 TIME: 16:32 Assessment/Plan VTE Prophylaxis VTE Prophylaxis Intervention: SCD's Lines/Catheters IV C[facility]ter Type (from [facility] Saline Lock Urinary Cath still in place: No Assessment/Plan Chief Complaint/Hosp Course Assessment/Plan - Pelvic mass with local lymphadenopathy status post total abdominal hysterectomy and bilateral salpingo-oophorectomy and removal of retroperitoneal lymph nodes which were positive for adenocarcinoma with strong suggestion of breast primary per path. Continue to follow-up surgical recommendation. Dr. Martinez is following in surgical consultation. Dr. Figueroa is following in hematology oncology consultation. - Coagulopathy, resolved, s/p FFP transfusion - Anemia of blood loss,s/p packed red blood cells transfusion, stable continue to monitor hemoglobin and hematocrit - Hypertension. Patient is currently normotensive. - Dyslipidemia. Case management for sniff placement. Further recommendations based on clinical course. Plan of care discussed with Dr. Mari. Problems: Subjective 24 Hr Interval Summary Free Text/Dictation Pt looks comfortable, denies pain, pt's son wants pt to recover in [facility] since she lives alone. Exam/Review of Systems Vital Signs Vitals Vital Signs Date Time Temp Pulse Resp B/P Pulse Ox O2 Delivery O2 Flow Rate FiO2 04/05/17 07:47 97.6 67 18 108/56 95 Intake and Output 04/04/17 04/04/17 04/05/17 15:00 23:00 07:00 Intake Total 1080 ml 300 ml Output Total 1470 ml 20 ml Balance -390 ml 280 ml Exam Constitutional: alert, oriented Psych: no complaints Head: atraumatic, normocephalic Eyes: nl conjunctiva ENMT: nl external ears & nose Neck: non-tender, supple Respiratory: clear to auscultation, normal air movement Cardiovascular: nl pulses, regular rate and rhythm Gastrointestinal: other (active bowel sounds, status post surgery, soft Musculoskeletal: nl extremities to inspection Extremities: normal pulses Neurological: 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 SERVICES 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 II-XII intact Skin: nl turgor Lymph: nl lymph nodes Results Result Diagram: 04/04/17 0510 04/04/17 0510 Medications Medications Current Medications Hydromorphone HCl (Dilaudid) 0.5 mg Q1HWA PRN IV PAIN LEVEL 6-10 Last administered on 04/01/17t 19:55; Admin Dose 0.5 MG; Start 03/22/17 at 14:00 Ondansetron HCl (Zofran Inj) 4 mg Q6H PRN IV NAUSEA AND/OR VOMITING; Start at 21:30 Metoclopramide HCl (Reglan) 10 mg Q6H PRN IV NAUSEA; Start 04/01/17 at 12:30 Levothyroxine Sodium (Synthroid) 137 mcg DAILY@06 PO Last administered on 06:01; Admin Dose 137 MCG; Start 04/02/17 at 06:00 Atorvastatin Calcium (Lipitor) 10 mg HS PO Last administered on 04/04/17 20:57 ; Admin Dose 10 MG; Start 04/01/17 at 21:00 Famotidine (Pepcid) 20 mg QHS PO Last administered on 04/04/17 20:57; Admin Dose 20 MG; Start 04/01/17 at 21:00 Acetaminophen (Tylenol Tab) 500 mg Q4H PRN PO PAIN AND OR ELEVATED TEMP; Start 04/01/17 at 12:30 Tramadol HCl (Ultram) 50 mg Q6H PRN PO PAIN LEVEL 4-6 Last administered on 23:06; Admin Dose 50 MG; Start 04/01/17 at 12:30 Nystatin (Nystatin Powder) 1 applic BID TOP Last administered on 04/05/17 09:10 ; Admin Dose 1 APPLIC; Start 04/01/17 at 13:30 Furosemide (Lasix) 20 mg DAILY PO Last administered on 04/05/17 09:08; Admin Dose 20 MG; Start 04/01/17 at 13:00 Enoxaparin Sodium (Lovenox) 40 mg DAILY SC Last administered on 04/05/17 09:05 ; Admin Dose 40 MG; Start 04/01/17 at 13:00 Meloxicam (Mobic) 15 mg DAILY PO Last administered on 04/05/17 09:07; Admin Dose 15 MG; Start 04/01/17 at 16:00 LESLIE HELLER April 05, 2017 16:42
[2017-04-05 20:20] VITALS: BP 137/59; RESP 20
[2017-04-05] MEDS: ATORVASTATIN 10 MG TAB PO SCH (20:44)
[2017-04-05] MEDS: FAMOTIDINE 20 MG TAB PO SCH (20:44)
[2017-04-05] MEDS: traMADol 50 MG TAB PO PRN (21:28)
--- NOTE | 2017-04-06 00:19 | PN ---
Date/Time of Note Date/Time of Note DATE: 04/06/17 TIME: 00:16 Assessment/Plan VTE Prophylaxis VTE Prophylaxis Intervention: LMWH Lines/Catheters IV Catheter Type (from Nrs): Saline Lock Urinary Cath still in place: No Assessment/Plan Chief Complaint/Hosp Course adenoca Problems: Assessment/Plan A- doing well- P- awaits placement possibly d/c drain a.m. Subjective 24 Hr Interval Summary Free Text/Dictation + flatus amd + BM and feels better . OOB Exam/Review of Systems Vital Signs Vitals Vital Signs Date Time Temp Pulse Resp B/P Pulse Ox O2 Delivery O2 Flow Rate FiO2 04/05/17 20:20 98.6 73 20 137/59 99 Intake and Output 04/05/17 04/05/17 04/06/17 15:00 23:00 07:00 Intake Total 1200 ml Output Total 1650 ml Balance -450 ml Exam Respiratory: normal air movement Cardiovascular: nl pulses, regular rate and rhythm Gastrointestinal: soft Musculoskeletal: nl gait and stance Results Result Diagram: 04/04/1710 04/04/17509 Medications Medications Current Medications Hydromorphone HCl (Dilaudid) 0.5 mg Q1HWA PRN IV PAIN LEVEL 6-10 Last administered on 04/01/17 19:55; Admin Dose 0.5 MG; Start 03/22/17 at 14:00 Ondansetron HCl (Zofran Inj) 4 mg Q6H PRN IV NAUSEA AND/OR VOMITING; Start at 21:30 Metoclopramide HCl (Reglan) 10 mg Q6H PRN IV NAUSEA; Start 04/01/17 at 12:30 Levothyroxine Sodium (Synthroid) 137 mcg DAILY@06 PO Last administered on 06:01; Admin Dose 137 MCG; Start 04/02/17 at 06:00 Atorvastatin Calcium (Lipitor) 10 mg HS PO Last administered on 04/05/17 20:44 ; Admin Dose 10 MG; Start 04/01/17 at 21:00 Famotidine (Pepcid) 20 mg QHS PO Last administered on 04/05/17 20:44; Admin Dose 20 MG; Start 04/01/17 at 21:00 Acetaminophen (Tylenol Tab) 500 mg Q4H PRN PO PAIN AND OR ELEVATED TEMP; Start 04/01/17 at 12:30 Tramadol HCl (Ultram) 50 mg Q6H PRN PO PAIN LEVEL 4-6 Last administered on 21:28; Admin Dose 50 MG; Start 04/01/17 at 12:30 Nystatin (Nystatin Powder) 1 applic BID TOP Last administered on 04/05/17 20:46 ; Admin Dose 1 APPLIC; Start 04/01/17 at 13:30 Furosemide (Lasix) 20 mg DAILY PO Last administered on 04/05/17 09:08; Admin Dose 20 MG; Start 04/01/17 at 13:00 Enoxaparin Sodium (Lovenox) 40 mg DAILY SC Last administered on 04/05/17 09:05 ; Admin Dose 40 MG; Start 04/01/17 at 13:00 Meloxicam (Mobic) 15 mg DAILY PO Last administered on 04/05/17 09:07; Admin Dose 15 MG; Start 04/01/17 at 16:00 DEVORAH WINSTON MD April 06, 2017 00:19
[2017-04-06 05:48] LABS: ADD SCAN DIFF NO
[2017-04-06 05:54] LABS: BASOPHILS % 0.5 % (0.0-2.0); EOSINOPHILS # 0.1 10^3/ul (0.0-0.5); EOSINOPHILS % 2.8 % (0.0-7.0); HEMATOCRIT 31.9 % (37.0-47.0); HEMOGLOBIN 9.9 g/dl (12.0-16.0); LYMPHOCYTES # 1.2 10^3/ul (0.8-2.9); LYMPHOCYTES % 30.1 % (15.0-51.0); MEAN CORPUSCULAR HEMOGLOBIN 28.3 pg (29.0-33.0); MEAN CORPUSCULAR VOLUME 91.1 fl (82.0-101.0); MONOCYTE # 0.3 10^3/ul (0.3-0.9); MONOCYTES % 8.6 % (0.0-11.0); NEUTROPHIL # 2.3 10^3/ul (1.6-7.5); NEUTROPHILS % 57.5 % (39.0-77.0); PLATELET COUNT 311 10^3/UL (140-415); RED CELL DISTRIBUTION WIDTH 14.8 % (11.5-14.5)
[2017-04-06 06:08] LABS: POTASSIUM 3.6 mmol/L (3.5-5.1)
[2017-04-06] MEDS: LEVOTHYROXINE 137 MCG TAB PO SCH (06:08)
[2017-04-06 06:11] LABS: CALCIUM 7.9 mg/dl (8.4-10.2); CREATININE 0.89 mg/dl (0.44-1.00)
[2017-04-06 07:49] VITALS: BP 109/55; RESP 18
[2017-04-06] MEDS: FUROSEMIDE 20 MG TAB PO SCH (08:53)
[2017-04-06] MEDS: NYSTATIN 30 GM POWDER BTL TOP SCH ×2 (08:54→20:49)
[2017-04-06] MEDS: MELOXICAM 15 MG TAB PO SCH (08:54)
[2017-04-06] MEDS: ENOXAPARIN 40 MG/0.4 ML SYG SC SCH (08:58)
--- NOTE | 2017-04-06 09:16 | CONS ---
Date/Time of Note Date/Time of Note DATE: 04/06/17 TIME: 09:08 Assessment/Plan Assessment/Plan Chief Complaint/Hosp Course 87 yo female with a large uterus and abdominal / pelvic lymphadenopathy originally though to be secondary to uterine cancer. Pt is now s/p DANN BSO with extensive lymph node dissection. Interestingly the uterus did not show cancer but 19/34 lymph nodes dissected demonstrated adenocarcinoma consistent with breast primary. ER was found to be positive at 80%, DE negative and Her 2 is currently pending. Thus far a CT C/A/P demonstrates massive inguinal LAD as well as pleural effusions but there is no obvious breast lesion on imaging or my physical exam. #[place] of unknown primary - the GATA3 positivity and CK 7 positivity do make this a likely breast cancer -will wait for final path results. Path being sent to Dr. Houston Rose at [facility] for a second opinion. sent last tuesday -f/u Her 2 status -if confirmed ER+ Her 2 neg stage IV breast ca, will need to start aromatase inhibitor -bone scan ordered 03/30/17 which demonstrated 1. Likely compression / degenerative changes at approximately T7 vertebra; please correlate with x-ray. 2. Likely degenerative changes of the remainder of the spine most prominent at approximately L5-S1 level to the left of the midline 3. No other skeletal abnormalities and no definite scintigraphic pattern to suggest the presence of skeletal metastases. - normal 03/30/17 bilateral breast ultrasound - LE dopplers 04/01/17 showed no evidence of deep vein thrombosis involving either lower extremity. - CA 27-29 elevated at 236, CA 15-3 elevated at 92 #s/p abdominal surgery -continue PT and to advance diet -postop care per Dr. Wellington. drain to be removed today Case was discusser at length with Dr. Wellington as well as her daughter Nathalie [phone] Problems: Consultation Date/Type/Reason Admit Date/Time Mar 22, 2017 at 07:26 Initial Consult Date 03/30/17 Type of Consultation: Oncology Reason for Consultation adenocarcinoma of unknown primary Referring Provider: DEVORAH WINSTON MD 24 HR Interval Summary Free Text/Dictation patient continues to recover. ambulating and tolerating her diet Exam/Review of Systems Vital Signs Vitals Vital Signs Date Time Temp Pulse Resp B/P Pulse Ox O2 Delivery O2 Flow Rate FiO2 04/06/17 07:49 97.9 69 18 109/55 90 Intake and Output 04/05/17 04/05/17 04/06/17 15:00 23:00 07:00 Intake Total 1200 ml 240 ml Output Total 1650 ml Balance -450 ml 240 ml Exam Constitutional: alert, oriented Psych: no complaints Head: normocephalic Eyes: nl conjunctiva ENMT: nl external ears & nose, nl lips & teeth Neck: non-tender, supple Respiratory: clear to auscultation Cardiovascular: regular rate and rhythm Gastrointestinal: other (JOSSELYN drain in place), soft Musculoskeletal: nl extremities to inspection, nl gait and stance Extremities: normal pulses Results Result Diagram: 04/06/1751404/06/17514 Results 24 hrs Laboratory Tests Test 04/06/17 05:15 White Blood Count 4.0 L Red Blood Count 3.50 L Hemoglobin 9.9 L Hematocrit 31.9 L Mean Corpuscular Volume 91.1 Mean Corpuscular Hemoglobin 28.3 L Mean Corpuscular Hemoglobin Concent 31.0 L Red Cell Distribution Width 14.8 H Platelet Count 311 Mean Platelet Volume 9.0 Neutrophils % 57.5 Lymphocytes % 30.1 Monocytes % 8.6 Eosinophils % 2.8 Basophils % 0.5 Nucleated Red Blood Cells % 0.0 Neutrophils # 2.3 Lymphocytes # 1.2 Monocytes # 0.3 Eosinophils # 0.1 Basophils # 0.0 Nucleated Red Blood Cells # 0.0 Sodium Level 138 Potassium Level 3.6 Chloride Level 104 Carbon Dioxide Level 25 Anion Gap 13 Blood Urea Nitrogen 12 Creatinine 0.89 Glucose Level 80 Calcium Level 7.9 L Medications Medications Current Medications Hydromorphone HCl (Dilaudid) 0.5 mg Q1HWA PRN IV PAIN LEVEL 6-10 Last administered on 04/01/17 19:55; Admin Dose 0.5 MG; Start 03/22/17 at 14:00 Ondansetron HCl (Zofran Inj) 4 mg Q6H PRN IV NAUSEA AND/OR VOMITING; Start at 21:30 Metoclopramide HCl (Reglan) 10 mg Q6H PRN IV NAUSEA; Start 04/01/17 at 12:30 Levothyroxine Sodium (Synthroid) 137 mcg DAILY@06 PO Last administered on 06:08; Admin Dose 137 MCG; Start 04/02/17 at 06:00 Atorvastatin Calcium (Lipitor) 10 mg HS PO Last administered on 04/05/17 20:44 ; Admin Dose 10 MG; Start 04/01/17 at 21:00 Famotidine (Pepcid) 20 mg QHS PO Last administered on 04/05/17 20:44; Admin Dose 20 MG; Start 04/01/17 at 21:00 Acetaminophen (Tylenol Tab) 500 mg Q4H PRN PO PAIN AND OR ELEVATED TEMP; Start 04/01/17 at 12:30 Tramadol HCl (Ultram) 50 mg Q6H PRN PO PAIN LEVEL 4-6 Last administered on 21:28; Admin Dose 50 MG; Start 04/01/17 at 12:30 Nystatin (Nystatin Powder) 1 applic BID TOP Last administered on 04/06/17 08: 54; Admin Dose 1 APPLIC; Start 04/01/17 at 13:30 Furosemide (Lasix) 20 mg DAILY PO Last administered on 04/06/17 08:53; Admin Dose 20 MG; Start 04/01/17 at 13:00 Enoxaparin Sodium (Lovenox) 40 mg DAILY SC Last administered on 04/06/17 08:58 ; Admin Dose 40 MG; Start 04/01/17 at 13:00 Meloxicam (Mobic) 15 mg DAILY PO Last administered on 04/05/17 09:07; Admin Dose 15 MG; Start 04/01/17 at 16:00 RAZ FRIEND M.D. April 06, 2017 09:16
--- NOTE | 2017-04-06 13:29 | PN ---
Date/Time of Note Date/Time of Note DATE: 04/06/17 TIME: 13:27 Assessment/Plan VTE Prophylaxis VTE Prophylaxis Intervention: LMWH Lines/Catheters IV Catheter Type (from Nrs): Saline Lock Urinary Cath still in place: No Assessment/Plan Chief Complaint/Hosp Course adenoca Problems: Assessment/Plan A- P- doing well drain removed pain-free Subjective 24 Hr Interval Summary Free Text/Dictation S- continues to improve and OOB more, feels better. eats better Exam/Review of Systems Vital Signs Vitals Vital Signs Date Time Temp Pulse Resp B/P Pulse Ox O2 Delivery O2 Flow Rate FiO2 04/06/17 07:49 97.9 69 18 109/55 90 Intake and Output 04/05/17 04/05/17 04/06/17 15:00 23:00 07:00 Intake Total 1200 ml 240 ml Output Total 1650 ml Balance -450 ml 240 ml Exam Respiratory: normal air movement Cardiovascular: nl pulses, regular rate and rhythm Extremities: normal pulses Results Result Diagram: 04/06/17 0515 04/06/17 0515 Results 24 hrs Laboratory Tests Test 04/06/17 05:15 White Blood Count 4.0 L Red Blood Count 3.50 L Hemoglobin 9.9 L Hematocrit 31.9 L Mean Corpuscular Volume 91.1 Mean Corpuscular Hemoglobin 28.3 L Mean Corpuscular Hemoglobin Concent 31.0 L Red Cell Distribution Width 14.8 H Platelet Count 311 Mean Platelet Volume 9.0 Neutrophils % 57.5 Lymphocytes % 30.1 Monocytes % 8.6 Eosinophils % 2.8 Basophils % 0.5 Nucleated Red Blood Cells % 0.0 Neutrophils # 2.3 Lymphocytes # 1.2 Monocytes # 0.3 Eosinophils # 0.1 Basophils # 0.0 Nucleated Red Blood Cells # 0.0 Sodium Level 138 Potassium Level 3.6 Chloride Level 104 Carbon Dioxide Level 25 Anion Gap 13 Blood Urea Nitrogen 12 Creatinine 0.89 Glucose Level 80 Calcium Level 7.9 L Medications Medications Current Medications Hydromorphone HCl (Dilaudid) 0.5 mg Q1HWA PRN IV PAIN LEVEL 6-10 Last administered on 04/01/17t 19:55; Admin Dose 0.5 MG; Start 03/22/17 at 14:00 Ondansetron HCl (Zofran Inj) 4 mg Q6H PRN IV NAUSEA AND/OR VOMITING; Start at 21:30 Metoclopramide HCl (Reglan) 10 mg Q6H PRN IV NAUSEA; Start 04/01/17 at 12:30 Levothyroxine Sodium (Synthroid) 137 mcg DAILY@06 PO Last administered on 06:08; Admin Dose 137 MCG; Start 04/02/17 at 06:00 Atorvastatin Calcium (Lipitor) 10 mg HS PO Last administered on 04/05/17 20:44 ; Admin Dose 10 MG; Start 04/01/17 at 21:00 Famotidine (Pepcid) 20 mg QHS PO Last administered on 04/05/17 20:44; Admin Dose 20 MG; Start 04/01/17 at 21:00 Acetaminophen (Tylenol Tab) 500 mg Q4H PRN PO PAIN AND OR ELEVATED TEMP; Start 04/01/17 at 12:30 Tramadol HCl (Ultram) 50 mg Q6H PRN PO PAIN LEVEL 4-6 Last administered on 21:28; Admin Dose 50 MG; Start 04/01/17 at 12:30 Nystatin (Nystatin Powder) 1 applic BID TOP Last administered on 04/06/17 08: 54; Admin Dose 1 APPLIC; Start 04/01/17 at 13:30 Furosemide (Lasix) 20 mg DAILY PO Last administered on 04/06/17 08:53; Admin Dose 20 MG; Start 04/01/17 at 13:00 Enoxaparin Sodium (Lovenox) 40 mg DAILY SC Last administered on 04/06/17 08:58 ; Admin Dose 40 MG; Start 04/01/17 at 13:00 Meloxicam (Mobic) 15 mg DAILY PO Last administered on 04/05/17 09:07; Admin Dose 15 MG; Start 04/01/17 at 16:00 DEVORAH WINSTON MD April 06, 2017 13:29
--- NOTE | 2017-04-06 13:43 | PN ---
Date/Time of Note Date/Time of Note DATE: 04/06/17 TIME: 13:42 Assessment/Plan VTE Prophylaxis VTE Prophylaxis Intervention: SCD's Lines/Catheters IV Catheter Type (from [facility]): Saline Lock Urinary Cath still in place: No Assessment/Plan Chief Complaint/Hosp Course Assessment/Plan - Pelvic mass with local lymphadenopathy status post total abdominal hysterectomy and bilateral salpingo-oophorectomy and removal of retroperitoneal lymph nodes which were positive for adenocarcinoma with strong suggestion of breast primary per path. Continue to follow-up surgical recommendation. Dr. Martinez is following in surgical consultation. Dr. Figueroa is following in hematology oncology consultation. - Coagulopathy, resolved, s/p FFP transfusion - Anemia of blood loss,s/p packed red blood cells transfusion, stable continue to monitor hemoglobin and hematocrit - Hypertension. Patient is currently normotensive. - Dyslipidemia. Pending sniff placement. Further recommendations based on clinical course. Plan of care discussed with Dr. Mari. Problems: Subjective 24 Hr Interval Summary Free Text/Dictation No complaints, patient looks comfortable, Exam/Review of Systems Vital Signs Vitals Vital Signs Date Time Temp Pulse Resp B/P Pulse Ox O2 Delivery O2 Flow Rate FiO2 04/06/17 07:49 97.9 69 18 109/55 90 Intake and Output 04/05/17 04/05/17 04/06/17 15:00 23:00 07:00 Intake Total 1200 ml 240 ml Output Total 1650 ml Balance -450 ml 240 ml Exam Constitutional: alert, oriented Psych: no complaints Head: atraumatic, normocephalic Eyes: nl conjunctiva ENMT: nl external ears & nose Neck: non-tender, supple Respiratory: clear to auscultation, normal air movement Cardiovascular: nl pulses, regular rate and rhythm Gastrointestinal: other (active bowel sounds, status post surgery, soft Musculoskeletal: nl extremities to inspection Extremities: normal pulses Neurological: CEMENTER II-XII intact Skin: nl turgor Lymph: nl lymph nodes Results Result Diagram: 04/06/17 0515 04/06/17 0515 Results 24 hrs Laboratory Tests Test 04/06/17 05:15 White Blood Count 4.0 L Red Blood Count 3.50 L Hemoglobin 9.9 L Hematocrit 31.9 L Mean Corpuscular Volume 91.1 Mean Corpuscular Hemoglobin 28.3 L Mean Corpuscular Hemoglobin Concent 31.0 L Red Cell Distribution Width 14.8 H Platelet Count 311 Mean Platelet Volume 9.0 Neutrophils % 57.5 Lymphocytes % 30.1 Monocytes % 8.6 Eosinophils % 2.8 Basophils % 0.5 Nucleated Red Blood Cells % 0.0 Neutrophils # 2.3 Lymphocytes # 1.2 Monocytes # 0.3 Eosinophils # 0.1 Basophils # 0.0 Nucleated Red Blood Cells # 0.0 Sodium Level 138 Potassium Level 3.6 Chloride Level 104 Carbon Dioxide Level 25 Anion Gap 13 Blood Urea Nitrogen 12 Creatinine 0.89 Glucose Level 80 Calcium Level 7.9 L Medications Medications Current Medications Hydromorphone HCl (Dilaudid) 0.5 mg Q1HWA PRN IV PAIN LEVEL 6-10 Last administered on 04/01/17 19:55; Admin Dose 0.5 MG; Start 03/22/17 at 14:00 Ondansetron HCl (Zofran Inj) 4 mg Q6H PRN IV NAUSEA AND/OR VOMITING; Start at 21:30 Metoclopramide HCl (Reglan) 10 mg Q6H PRN IV NAUSEA; Start 04/01/17 at 12:30 Levothyroxine Sodium (Synthroid) 137 mcg DAILY@06 PO Last administered on 06:08; Admin Dose 137 MCG; Start 04/02/17 at 06:00 Atorvastatin Calcium (Lipitor) 10 mg HS PO Last administered on 04/05/17 20:44 ; Admin Dose 10 MG; Start 04/01/17 at 21:00 Famotidine (Pepcid) 20 mg QHS PO Last administered on 04/05/17 20:44; Admin Dose 20 MG; Start 04/01/17 at 21:00 Acetaminophen (Tylenol Tab) 500 mg Q4H PRN PO PAIN AND OR ELEVATED TEMP; Start 04/01/17 at 12:30 Tramadol HCl (Ultram) 50 mg Q6H PRN PO PAIN LEVEL 4-6 Last administered on 21:28; Admin Dose 50 MG; Start 04/01/17 at 12:30 Nystatin (Nystatin Powder) 1 applic BID TOP Last administered on 04/06/17 08: 54; Admin Dose 1 APPLIC; Start 04/01/17 at 13:30 Furosemide (Lasix) 20 mg DAILY PO Last administered on 04/06/17 08:53; Admin Dose 20 MG; Start 04/01/17 at 13:00 Enoxaparin Sodium (Lovenox) 40 mg DAILY SC Last administered on 04/06/17 08:58 ; Admin Dose 40 MG; Start 04/01/17 at 13:00 Meloxicam (Mobic) 15 mg DAILY PO Last administered on 04/05/17 09:07; Admin Dose 15 MG; Start 04/01/17 at 16:00 LESLIE HELLER April 06, 2017 13:43
[2017-04-06 20:40] VITALS: BP 123/58; RESP 16
[2017-04-06] MEDS: FAMOTIDINE 20 MG TAB PO SCH (20:49)
[2017-04-06] MEDS: ATORVASTATIN 10 MG TAB PO SCH (20:49)
[2017-04-06] MEDS: traMADol 50 MG TAB PO PRN (22:03)
[2017-04-07] MEDS: LEVOTHYROXINE 137 MCG TAB PO SCH (06:09)
[2017-04-07 07:57] VITALS: BP 109/55; RESP 18
[2017-04-07] MEDS: FUROSEMIDE 20 MG TAB PO SCH (08:33)
[2017-04-07] MEDS: MELOXICAM 15 MG TAB PO SCH (08:35)
[2017-04-07] MEDS: ENOXAPARIN 40 MG/0.4 ML SYG SC SCH (08:40)
[2017-04-07] MEDS: NYSTATIN 30 GM POWDER BTL TOP SCH ×2 (09:00→21:03)
--- NOTE | 2017-04-07 18:04 | DS ---
Date/Time of Note Date/Time of Note DATE: 04/07/17 TIME: 18:03 Discharge Summary Admission/Discharge Info Admit Date/Time Mar 22, 2017 at 07:26 Discharge Date/Time Patient Condition: Stable Hospital Course Assessment/Plan - Pelvic mass with local lymphadenopathy status post total abdominal hysterectomy and bilateral salpingo-oophorectomy and removal of retroperitoneal lymph nodes which were positive for adenocarcinoma with strong suggestion of breast primary per path. Continue to follow-up surgical recommendation. Dr. Martinez is following in surgical consultation. Dr. Figueroa is following in hematology oncology consultation. - Coagulopathy, resolved, s/p FFP transfusion - Anemia of blood loss,s/p packed red blood cells transfusion, stable continue to monitor hemoglobin and hematocrit - Hypertension. Patient is currently normotensive. - Dyslipidemia. Pending sniff placement. Further recommendations based on clinical course. Plan of care discussed with Dr. Mari. Home Meds Reported Medications Calcium Carbonate* (Calcium Carbonate*) 600 MG Ca Tab, 600 MG PO DAILY, TAB 03/22/17 Cholecalciferol* (Vitamin D3*) 1,000 Unit Tablet, 1000 UNIT PO DAILY, TAB 03/22/17 Vit C/E/Zn/Coppr/Lutein/Zeaxan (Preservision Areds 2 Softgel) 1 Each Capsule, 1 EACH PO DAILY, CAP 03/22/17 Furosemide* (Lasix*) 20 Mg Tablet, 20 MG PO DAILY, TAB 03/22/17 Simvastatin* (Zocor*) 10 Mg Tablet, 10 MG PO QHS, #30 TAB 03/22/17 Levothyroxine Sodium* (Levoxyl*) 137 Mcg Tablet, 137 MCG PO BEFORE BREAKFAST, # 30 TAB 03/22/17 TEVIN WILSON April 07, 2017 18:04
[2017-04-07 20:00] VITALS: BP 128/56; PULSE 78; RESP 20
--- NOTE | 2017-04-07 20:42 | PDOCDIS ---
Discharge Instructions CONDITION Patient Condition: Stable HOME CARE INSTRUCTIONS: Special Diet: SOFT DIET ACTIVITY: Activity Restrictions: Slowly Increase Activity Rest between Activity Avoid heavy lifting Do not operate Machinery Do not operate Power Tool Avoid Heavy Housework Bathing Restrictions: Sponge Bath TEVIN WILSON April 07, 2017 20:42
[2017-04-07] MEDS: ATORVASTATIN 10 MG TAB PO SCH (21:03)
[2017-04-07] MEDS: FAMOTIDINE 20 MG TAB PO SCH (21:03)
== END 2017-04-07 21:50 | DRG 821 ==
LOC: REC 07:26 → ICU 21:57 → TEL 03-23 20:30 → MS2 04-01 00:49
PROVIDERS: ADMIT Internal Medicine; ATTEND Internal Medicine
PROC: 07TC0ZZ Resection of Pelvis Lymphatic, Open Approach (ICD-10-PCS; 2017-03-22)
PROC: 0UTC0ZZ Resection of Cervix, Open Approach (ICD-10-PCS; 2017-03-22)
PROC: 0UT20ZZ Resection of Bilateral Ovaries, Open Approach (ICD-10-PCS; 2017-03-22)
PROC: 0UT70ZZ Resection of Bilateral Fallopian Tubes, Open Approach (ICD-10-PCS; 2017-03-22)
PROC: 0TS80ZZ Reposition Bilateral Ureters, Open Approach (ICD-10-PCS; 2017-03-22)
PROC: 30233N1 Transfusion of Nonautologous Red Blood Cells into Peripheral Vein, Percutaneous Approach (ICD-10-PCS; 2017-03-22)
PROC: 4A033R1 Measurement of Arterial Saturation, Peripheral, Percutaneous Approach (ICD-10-PCS; 2017-03-22)
PROC: 0UT90ZZ Resection of Uterus, Open Approach (ICD-10-PCS; principal; 2017-03-22 09:30)
PROC: 30233K1 Transfusion of Nonautologous Frozen Plasma into Peripheral Vein, Percutaneous Approach (ICD-10-PCS; 2017-03-23)
DX: C77.2 Secondary and unspecified malignant neoplasm of intra-abdominal lymph nodes (principal); D62 Acute posthemorrhagic anemia; D68.9 Coagulation defect, unspecified; C80.1 Malignant (primary) neoplasm, unspecified; Q62.62 Displacement of ureter; R33.9 Retention of urine, unspecified; I10 Essential (primary) hypertension; E78.5 Hyperlipidemia, unspecified; E03.9 Hypothyroidism, unspecified
CPT/HCPCS: 36430; 36600; 71010; 71260; 74177; 78306; 80048; 80053; 82378; 82803; 85025; 85610; 86300; 86850; 86900; 86901; 86920; 87070; 87086; 88104; 88305; 88307; 88313; 88331; 93970; 97110; 97116; 97163; 97530; A9503; J0131; J0690; J1100; J1170; J1200; J1644; J1650; J2370; J2405; J2710; J2765; J3010; J3480; J7042; P9016; P9045; P9059; Q9967